=== PATIENT | female | born 1940 | race Caucasian/White ===

== ENCOUNTER → 2017-01-19 | Outpatient (CLI) | payer MEDICARE ==
[~2017-01-19] MED LIST: APIX5TAB2 PO; CLARATIN; DILT300C PO; HYDR-3454 PO; KRIL500C PO; LOSA50TA6 PO; METH-336 PO; OMEP20TA2 PO; VIT100TA2 PO
[2017-01-19 08:03] LABS: MEAN PLATELET VOLUME 9.2 FL (7.4-10.4); RED BLOOD COUNT 4.67 10^6/uL (4.35-5.85); RED CELL DISTRIBUTION WIDTH 13.4 % (10.0-14.5); WHITE BLOOD COUNT 7.1 10^3/uL (4.3-11.0)
[2017-01-19 08:29] LABS: ALANINE AMINOTRANSFERASE 16 U/L (0-55); ALBUMIN 3.9 GM/DL (3.2-4.5); ANION GAP 10 MMOL/L (5-14); ASPARTATE AMINO TRANSFERASE 14 U/L (5-34); BILIRUBIN,TOTAL 0.4 MG/DL (0.1-1.0); BLOOD UREA NITROGEN 15 MG/DL (7-18); BUN/CREATININE RATIO 21; CALCIUM 9.3 MG/DL (8.5-10.1); CARBON DIOXIDE 24 MMOL/L (21-32); CHLORIDE 106 MMOL/L (98-107); CHOLESTEROL 205 MG/DL (< 200); CREATININE SERUM 0.73 MG/DL (0.60-1.30); DIRECT LDL 143 MG/DL (1-129); GFR ESTIMATED > 60; GLUCOSE 93 MG/DL (70-105); SODIUM 140 MMOL/L (135-145); TRIGLYCERIDES 144 MG/DL (<150); VLDL CHOLESTEROL 29 MG/DL (5-40)
[2017-01-19 08:49] LABS: THYROID STIMULATING HORMONE 0.16 UIU/ML (0.35-4.94)
== END ==
LOC: LAB 07:34
PROVIDERS: ATTEND Family Medicine
DX: R53.82 Chronic fatigue, unspecified (principal); R63.5 Abnormal weight gain; Z72.0 Tobacco use
CPT/HCPCS: 36415; 80053; 80061; 84443; 85027

== ENCOUNTER → 2017-01-25 | Outpatient (CLI) | payer MEDICARE | LOC: LAB 10:47 | PROVIDERS: ATTEND Family Medicine | DX: R25.1 Tremor, unspecified (principal); F41.9 Anxiety disorder, unspecified | CPT/HCPCS: 36415; 84436; 84439; 84480 ==

== ENCOUNTER 2017-01-31 09:21 | Emergency (ER) | payer MEDICARE ==
[~2017-01-31] VITALS: Ht 154.9 cm; Wt 76.2 kg
[2017-01-31 10:50] LABS: BASOPHILS % (AUTO) 0 % (0-10); EOSINOPHILS # (AUTO) 0.1 10^3/uL (0.0-0.3); EOSINOPHILS % (AUTO) 1 % (0-10); LYMPHOCYTES # (AUTO) 2.2 X 10^3 (1.0-4.0); LYMPHOCYTES % (AUTO) 21 % (12-44); MEAN CORPUSCULAR HEMOGLOBIN 31 PG (25-34); MEAN CORPUSCULAR HGB CONC 33 G/DL (32-36); MEAN CORPUSCULAR VOLUME 93 FL (80-99); MEAN PLATELET VOLUME 9.9 FL (7.4-10.4); MONOCYTES # (AUTO) 0.8 X 10^3 (0.0-1.0); MONOCYTES % (AUTO) 7 % (0-12); NEUTROPHILS # (AUTO) 7.4 X 10^3 (1.8-7.8); NEUTROPHILS % (AUTO) 71 % (42-75); PLATELET COUNT 263 10^3/uL (130-400); RED BLOOD COUNT 4.62 10^6/uL (4.35-5.85); RED CELL DISTRIBUTION WIDTH 13.2 % (10.0-14.5); WHITE BLOOD COUNT 10.5 10^3/uL (4.3-11.0)
[2017-01-31 11:00] LABS: ANION GAP 11 MMOL/L (5-14); BLOOD UREA NITROGEN 13 MG/DL (7-18); BUN/CREATININE RATIO 18; CARBON DIOXIDE 21 MMOL/L (21-32); CHLORIDE 108 MMOL/L (98-107); CREATININE SERUM 0.74 MG/DL (0.60-1.30); GFR ESTIMATED > 60; GLUCOSE 144 MG/DL (70-105); MAGNESIUM 2.1 MG/DL (1.8-2.4); POTASSIUM 3.4 MMOL/L (3.6-5.0); SODIUM 140 MMOL/L (135-145)
--- NOTE | 2017-01-31 11:04 | Diagnostic Imaging Report ---
Clinical indication: Patient complains of shakiness in approximately one month with onset of shortness of air. Exam: Chest x-ray PA and lateral views. Comparisons: Chest x-ray dated 07/31/2014. Findings: Lungs/pleura: There is interval development of minimal discoid atelectasis in the periphery of the left midlung field. Otherwise, lungs are are clear. There is no pneumothorax. There is no pleural effusion. Mediastinum: Unremarkable. Pulmonary vasculature: Unremarkable. Heart: Unremarkable. Bones/extrathoracic soft tissue: There are degenerative spurs seen throughout the spine. Impression: Interval minimal atelectasis in the periphery of the left midlung field. Otherwise, there is no radiographic evidence of acute cardiopulmonary process. Dictated by: Dictated on workstation # [id number]
[2017-01-31 11:07] LABS: TROPONIN I < 0.30 NG/ML (<0.30)
[2017-01-31 11:13] LABS: BILIRUBIN,URINE NEGATIVE (NEGATIVE); KETONES,URINE NEGATIVE (NEGATIVE); LEUKOCYTE ESTERASE ,URINE NEGATIVE (NEGATIVE); NITRITE,URINE NEGATIVE (NEGATIVE); PH,URINE 7 (5-9); PROTEIN,URINE NEGATIVE (NEGATIVE); UROBILINOGEN,URINE NORMAL (NORMAL)
--- NOTE | 2017-01-31 11:57 | ED General ---
General Chief Complaint: Respiratory Problems Stated Complaint: SHAKINESS/SOB Nursing Triage Note: TO ED REPORTS HAS HX OF A FIB FELT LAST NIGHT THAT HER HEART WAS RACING TOOK PULSE AND IT HR WAS 85. ALSO REPORTS SHE HAS BEEN SHAKEY FOR A MONTH AND HAS SEEN HER DR FOR. MONITOR SR ON ADMIT AND IN NO DISTRESS. Nursing Sepsis Screen: No Definite Risk Source of Information: Patient Exam Limitations: No Limitations History of Present Illness Time Seen by Provider: 10:35 Initial Comments This pleasant 76-year-old woman presents to emergency room with complaints of sensation of palpitations last night. This morning she felt very shaky after waking up. She has been having episodes similar to this for the past month. She has been seen by Dr. Wilkerson for this previously and the labs have been obtained. Those were reviewed in her chart. She reports feeling significant fatigue recently and needing to take naps. This morning she was shaky and short of air but those symptoms seem to have resolved now. She denies any fever , nausea, vomiting, or diarrhea. She has had some slight dizziness. She occasionally takes Lasix for swelling and she took a dose this morning. She does have paroxysmal atrial fibrillation. Allergies and Home Medications Allergies Coded Allergies: amoxicillin (Unverified Allergy, Unknown, RASH, 07/31/14) Home Medications Apixaban 5 Mg Tablet, 5 MG PO BID, (Reported) Diltiazem Hcl 300 Mg Cap, 300 MG PO DAILY, (Reported) Hydrocodone Bit/Acetaminophen 1 Each Tablet, 1-2 EACH PO Q4H PRN for PAIN, #30 Prescribed by: ORIANA HINDS on 08/02/14 1244 Krill Oil 500 Mg Capsule, 500 MG PO DAILY, (Reported) Losartan Potassium 50 Mg Tablet, 50 MG PO DAILY, (Reported) Methylcellulose 500 Mg Tablet, 500 MG PO HS, (Reported) Omeprazole 20 Mg Tablet.dr, 20 MG PO DAILY, (Reported) Potassium Chloride 10 Meq Tablet.er, 10 MEQ PO UD, #20 Take one tablet with each dose of Lasix Prescribed by: JEN CAVAZOS on 01/31/17 1212 Vit B Complex 100 Cmb #2/Herbs 100 Mg Tablet, 100 MG PO DAILY, (Reported) Constitutional: see HPI EENTM: no symptoms reported Respiratory: see HPI Cardiovascular: see HPI Gastrointestinal: no symptoms reported Genitourinary: no symptoms reported : No Musculoskeletal: no symptoms reported Skin: no symptoms reported Psychiatric/Neurological: See HPI Hematologic/Lymphatic: No Symptoms Reported Past Hfxkkli-Arpkam-Wgnvqw Hx Patient Social History Recent Foreign Travel: No Contact w/Someone Who Travel: No Recent Infectious Disease Expo: No Immunizations Up To Date Date of Influenza Vaccine: Mar 05, 2014 Surgeries History of Surgeries: Yes (THROAT,THYROID SURG) Surgeries: Hysterectomy Respiratory History of Respiratory Disorde: No Cardiovascular History of Cardiac Disorders: Yes (A-FIB) Cardiac Disorders: Atrial Fibrillation (Paroxysmal), Hypertension Neurological History of Neurological Disord: No Reproductive System Sexually Transmitted Disease: No HIV/AIDS: No Female Reproductive Disorders: Denies Gastrointestinal History of Gastrointestinal Di: Yes (DIVERTICULITIS, FREQ LOOSE STOOLS) Gastrointestinal Disorders: Diverticulosis Musculoskeletal History of Musculoskeletal Dis: No Endocrine History of Endocrine Disorders: No Cancer History of Cancer: No Psychosocial History of Psychiatric Problem: No Integumentary History of Skin or Integumenta: Yes Skin/Integumentary Disorders: Psoriasis Blood Transfusions History of Blood Disorders: No Physical Exam Vital Signs Vital Sign - Last 12Hours 01/31/17 09:21 Temp 98.0 Pulse 72 Resp 18 B/P (MAP) 162/89 Pulse Ox 96 O2 Delivery Room Air Capillary Refill : Less Than 3 Seconds General Appearance: No Apparent Distress, WD/WN HEENT: PERRL/EOMI, Normal ENT Inspection Neck: Normal Inspection Respiratory: Lungs Clear, Normal Breath Sounds, No Accessory Muscle Use, No Respiratory Distress Cardiovascular: Regular Rate, Rhythm, No Edema, No Murmur, Normal Peripheral Pulses Gastrointestinal: Normal Bowel Sounds, Non Tender, Soft Extremity: Non Tender, Pedal Edema (Mild edema, equal bilaterally) Neurologic/Psychiatric: Alert, Oriented x3, No Motor/Sensory Deficits, Normal 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, 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 Skin: Normal Color, Warm/Dry Progress/Results/Core Measures Results/Orders Lab Results Laboratory Tests Test 01/31/17 09:37 01/31/17 11:01 Range/Units White Blood Count 10.5 4.3-11.0 10^3/uL Red Blood Count 4.62 4.35-5.85 10^6/uL Hemoglobin 14.2 11.5-16.0 G/DL Hematocrit 43 35-52 % Mean Corpuscular Volume 93 80-99 FL Mean Corpuscular Hemoglobin 31 25-34 PG Mean Corpuscular Hemoglobin Concent 33 32-36 G/DL Red Cell Distribution Width 13.2 10.0-14.5 % Platelet Count 263 130-400 10^3/uL Mean Platelet Volume 9.9 7.4-10.4 FL Neutrophils (%) (Auto) 71 42-75 % Lymphocytes (%) (Auto) 21 12-44 % Monocytes (%) (Auto) 7 0-12 % Eosinophils (%) (Auto) 1 0-10 % Basophils (%) (Auto) 0 0-10 % Neutrophils # (Auto) 7.4 1.8-7.8 X 10^3 Lymphocytes # (Auto) 2.2 1.0-4.0 X 10^3 Monocytes # (Auto) 0.8 0.0-1.0 X 10^3 Eosinophils # (Auto) 0.1 0.0-0.3 10^3/uL Basophils # (Auto) 0.0 0.0-0.1 10^3/uL Sodium Level 140 135-145 MMOL/L Potassium Level 3.4 L 3.6-5.0 MMOL/L Chloride Level 108 H 98-107 MMOL/L Carbon Dioxide Level 21 21-32 MMOL/L Anion Gap 11 5-14 MMOL/L Blood Urea Nitrogen 13 7-18 MG/DL Creatinine 0.74 0.60-1.30 MG/DL Estimat Glomerular Filtration Rate > 60 BUN/Creatinine Ratio 18 Glucose Level 144 H 70-105 MG/DL Calcium Level 9.0 8.5-10.1 MG/DL Magnesium Level 2.1 1.8-2.4 MG/DL Troponin I < 0.30 <0.30 NG/ML C-Reactive Protein High Sensitivity 0.09 0.00-0.50 MG/DL B-Type Natriuretic Peptide 63.8 <100.0 PG/ML Urine Color YELLOW Urine Clarity CLEAR Urine pH 7 5-9 Urine Specific [place] 1.005 L 1.016-1.022 Urine Protein NEGATIVE NEGATIVE Urine Glucose (UA) NEGATIVE NEGATIVE Urine Ketones NEGATIVE NEGATIVE Urine Nitrite NEGATIVE NEGATIVE Urine Bilirubin NEGATIVE NEGATIVE Urine Urobilinogen NORMAL NORMAL MG/DL Urine Leukocyte Esterase NEGATIVE NEGATIVE Urine RBC (Auto) 2+ H NEGATIVE Urine RBC NONE /HPF Urine WBC NONE /HPF Urine Crystals NONE /LPF Urine Bacteria TRACE /HPF Urine Casts NONE /LPF Urine Mucus NEGATIVE /LPF Urine Culture Indicated NO My Orders Orders - JEN SILVA MD Basic Metabolic Panel (01/31/17 10:44) BNP (01/31/17 10:44) Cbc With Automated Diff (01/31/17 10:44) Magnesium (01/31/17 10:44) Troponin I (01/31/17 10:44) Ua Culture If Indicated (01/31/17 10:44) Saline Lock/Iv-Start (01/31/17 10:44) Ekg Tracing (01/31/17 10:44) Chest Pa/Lat (2 View) (01/31/17 10:44) Hs C Reactive Protein (01/31/17 10:48) Vital Signs/I&O Vital Sign - Last 12Hours 01/31/17 01/31/17 09:21 12:14 Temp 98.0 Pulse 72 62 Resp 18 18 B/P (MAP) 162/89 Pulse Ox 96 98 O2 Delivery Room Air Room Air Blood Pressure Mean: 113 ECG Initial ECG Impression Date: Jan 31, 2017 Initial ECG Impression Time: 09:26 Initial ECG Rate: 71 Initial ECG Rhythm: Normal Sinus Initial ECG Intervals: Normal Initial ECG Impression: Normal Comment Normal sinus rhythm with no ST elevation or depression. No normal intervals or axis deviation. Diagnostic Imaging Diagonstic Imaging: Xray Plain Films/CT/US/NM/MRI: chest Comments Chest x-ray viewed by me and report reviewed. See report below: NAME: SANDRA VÁZQUEZ [facility] REC#: [id number] PT STATUS: REG ER : 1940 PHYSICIAN: JEN SILVA MD ADMIT DATE: 01/31/17/ER Draft Date of Exam:01/31/17 CHEST PA/LAT (2 VIEW) Clinical indication: Patient complains of shakiness in approximately one month with onset of shortness of air. Exam: Chest x-ray PA and lateral views. Comparisons: Chest x-ray dated 07/31/2014. Findings: Lungs/pleura: There is interval development of minimal discoid atelectasis in the periphery of the left midlung field. Otherwise, lungs are are clear. There is no pneumothorax. There is no pleural effusion. Mediastinum: Unremarkable. Pulmonary vasculature: Unremarkable. Heart: Unremarkable. Bones/extrathoracic soft tissue: There are degenerative spurs seen throughout the spine. Impression: Interval minimal atelectasis in the periphery of the left midlung field. Otherwise, there is no radiographic evidence of acute cardiopulmonary process. Dictated on workstation # [id number] Dict: 01/31/17 1059 Trans: 01/31/17 1104 STEVEN [id number] Interpreted by: AUGIE ROMAN MD Departure Impression Impression: Primary Impression: Palpitations Additional Impressions: Shakiness Paroxysmal atrial fibrillation Disposition: HOME, SELF-CARE Condition: Improved Departure-Patient Inst. Decision time for Depature: 12:00 Referrals: KATIE WILKERSON MD (PCP/Family) Primary Care Physician Patient Instructions: Atrial Fibrillation Add. Discharge Instructions: Continue with all of your medications as previously prescribed. Fill your potassium prescription and take one today. Also take a potassium dose with every dose of Lasix to take. Follow-up with Dr. Luo and your primary care provider. Inquire about obtaining a consultant luxury and [employer]. vice president [employer] (ex ) to evaluate your heart rhythm when you are having episodes of shakiness and palpitations. Return to the ER if symptoms worsen. All discharge instructions reviewed with patient and/or family. Voiced understanding. Scripts Potassium Chloride (Potassium Chloride) 10 Meq Tablet.er 10 MEQ PO UD, #20 TAB Take one tablet with each dose of Lasix Prov: JEN SILVA MD 01/31/17 Copy Copies To 1: KATIE WILKERSON MD Copies To 2: SANTY LUO MD [facility] JEN SILVA MD Jan 31, 2017 11:57
[2017-01-31] MEDS ORDERED: POTA10TA10 PO (12:12)
[2017-01-31 12:14] VITALS: BP 130/77
== END 2017-01-31 12:17 | disposition home or self-care (01) ==
LOC: EDUNIT# 09:21 → ER 09:22
DX: R00.2 Palpitations (principal); R25.1 Tremor, unspecified; I48.0 Paroxysmal atrial fibrillation; I10 Essential (primary) hypertension; Z87.39 Personal history of other diseases of the musculoskeletal system and connective tissue; Z87.19 Personal history of other diseases of the digestive system; Z90.710 Acquired absence of both cervix and uterus
CPT/HCPCS: 36415; 71020; 80048; 81000; 83735; 83880; 84484; 85025; 86141; 93005

== ENCOUNTER → 2017-02-03 | Outpatient (CLI) | payer MEDICARE ==
[~2017-02-03] MED LIST changes: +POTA10TA10 PO
[2017-02-03 11:41] LABS: ANION GAP 11 MMOL/L (5-14); BLOOD UREA NITROGEN 13 MG/DL (7-18); BUN/CREATININE RATIO 17; CALCIUM 9.4 MG/DL (8.5-10.1); CARBON DIOXIDE 23 MMOL/L (21-32); CHLORIDE 106 MMOL/L (98-107); CREATININE SERUM 0.75 MG/DL (0.60-1.30); GFR ESTIMATED > 60; GLUCOSE 88 MG/DL (70-105); MAGNESIUM 2.3 MG/DL (1.8-2.4); POTASSIUM 4.1 MMOL/L (3.6-5.0); SODIUM 140 MMOL/L (135-145)
== END ==
LOC: LAB 11:06
PROVIDERS: ATTEND Internal Medicine Cardiovascular Disease
DX: R00.2 Palpitations (principal); I48.0 Paroxysmal atrial fibrillation; I25.10 Atherosclerotic heart disease of native coronary artery without angina pectoris; I65.23 Occlusion and stenosis of bilateral carotid arteries; I49.5 Sick sinus syndrome; Z72.0 Tobacco use
CPT/HCPCS: 36415; 80048; 83735

== ENCOUNTER → 2017-02-19 | Outpatient (CLI) | payer MEDICARE | LOC: CARD 09:34 | PROVIDERS: ATTEND Internal Medicine Cardiovascular Disease | DX: I48.0 Paroxysmal atrial fibrillation (principal); I25.10 Atherosclerotic heart disease of native coronary artery without angina pectoris; I65.23 Occlusion and stenosis of bilateral carotid arteries; I49.5 Sick sinus syndrome; R00.2 Palpitations; Z72.0 Tobacco use | CPT/HCPCS: 93306 ==

== ENCOUNTER → 2017-03-18 | Outpatient (CLI) | payer MEDICARE ==
--- NOTE | 2017-03-19 09:57 | Diagnostic Imaging Report ---
EXAMINATION: Bilateral screening mammogram 2D views with tomosynthesis. The current study was also evaluated with a Computer Aided Detection (CAD) system. INDICATION: Screening. PERSONAL HISTORY: No current complaints stated on the questionnaire. COMPARISON: 03/10/2016. FINDINGS: The breasts are composed of scattered fibroglandular densities. There are occasional benign-appearing calcifications seen. No mass, architectural distortion, or suspicious cluster of calcifications. Allowing for technique and positional differences, no suspicious change is seen. IMPRESSION: No significant change. ACR BI-RADS Category 2: Benign findings. Result letter will be mailed to the patient. Note: At least 10% of breast cancer is not imaged by mammography. Dictated by: Dictated on workstation # [id number]
== END ==
LOC: RAD 10:59
DX: Z12.31 Encounter for screening mammogram for malignant neoplasm of breast (principal)
CPT/HCPCS: 77067

== ENCOUNTER → 2018-03-01 | Outpatient (CLI) | payer MEDICARE ==
[2018-03-01 08:06] LABS: ALANINE AMINOTRANSFERASE 16 U/L (0-55); ALBUMIN 3.8 GM/DL (3.2-4.5); ALKALINE PHOSPHATASE 47 U/L (40-136); BILIRUBIN,TOTAL 0.5 MG/DL (0.1-1.0); BUN/CREATININE RATIO 14; CALCIUM 9.1 MG/DL (8.5-10.1); CARBON DIOXIDE 25 MMOL/L (21-32); CHLORIDE 107 MMOL/L (98-107); CHOLESTEROL 187 MG/DL (< 200); CREATININE SERUM 0.72 MG/DL (0.60-1.30); GFR ESTIMATED > 60; GLUCOSE 98 MG/DL (70-105); HDL CHOLESTEROL 41 MG/DL (40-60); POTASSIUM 3.8 MMOL/L (3.6-5.0); SODIUM 140 MMOL/L (135-145); TOTAL PROTEIN 7.3 GM/DL (6.4-8.2); TRIGLYCERIDES 195 MG/DL (<150); VLDL CHOLESTEROL 39 MG/DL (5-40)
== END ==
LOC: LAB 07:34
PROVIDERS: ATTEND Nurse Practitioner Family
DX: I25.10 Atherosclerotic heart disease of native coronary artery without angina pectoris (principal); I77.89 Other specified disorders of arteries and arterioles; I10 Essential (primary) hypertension; I48.0 Paroxysmal atrial fibrillation; I49.5 Sick sinus syndrome; Z72.0 Tobacco use
CPT/HCPCS: 36415; 80053; 80061; 84443

== ENCOUNTER → 2018-03-08 | Outpatient (CLI) | payer MEDICARE ==
[2018-03-08 15:13] LABS: HEMOGLOBIN 14.1 G/DL (11.5-16.0); MEAN PLATELET VOLUME 9.3 FL (7.4-10.4); RED BLOOD COUNT 4.51 10^6/uL (4.35-5.85); RED CELL DISTRIBUTION WIDTH 13.8 % (10.0-14.5); WHITE BLOOD COUNT 8.6 10^3/uL (4.3-11.0)
[2018-03-08 15:56] LABS: FREE T4 (FREE THYROXINE) 1.02 NG/DL (0.70-1.48)
== END ==
LOC: LAB 14:52
PROVIDERS: ATTEND Family Medicine
DX: R73.03 Prediabetes (principal); R79.89 Other specified abnormal findings of blood chemistry
CPT/HCPCS: 36415; 84436; 84439; 84443; 84481; 85027

== ENCOUNTER → 2018-03-21 | Outpatient (CLI) | payer MEDICARE ==
--- NOTE | 2018-03-21 13:21 | Diagnostic Imaging Report ---
INDICATION: Routine screening. COMPARISON: 03/18/2017 and 03/10/2016. TECHNIQUE: 2D and 3D bilateral screening mammography was performed with CAD. FINDINGS: Scattered fibroglandular densities are identified bilaterally. The parenchymal pattern is stable. No dominant mass or malignant-appearing microcalcifications are seen. The axillae are unremarkable. IMPRESSION: No mammographic features suspicious for malignancy are identified. ACR BI-RADS Category 1: Negative. Result letter will be mailed to the patient. Note: At least 10% of breast cancer is not imaged by mammography. Dictated by: Dictated on workstation # [id number]
== END ==
LOC: RAD 09:20
PROVIDERS: ATTEND Family Medicine
DX: Z12.31 Encounter for screening mammogram for malignant neoplasm of breast (principal)
CPT/HCPCS: 77067

== ENCOUNTER → 2018-04-05 | Outpatient (CLI) | payer MEDICARE ==
--- NOTE | 2018-04-05 12:56 | Diagnostic Imaging Report ---
INDICATION: Multinodular goiter TECHNIQUE: Grayscale sonographic images of the thyroid gland. CORRELATION STUDY: 12/24/2015 FINDINGS: RIGHT LOBE: Enlarged at 5.5 x 2.6 x 2.0 cm. A predominantly hypoechoic but peripherally solid nodule within the right lobe currently measures 2.4 x 1.5 x 1.1 cm, previously 2.3 x 1.9 x 0.9 cm, relatively stable. Initial predominantly cystic but peripherally solid nodule inferiorly currently measures 18 x 14 x 13 mm, previously 14 x 13 x 13 mm stable to approximately minimally increased in size. LEFT LOBE: Enlarged at 5.5 x 2.9 x 2.3 cm. There is a predominantly solid but also cystic containing mass occupying a large portion of the left lobe currently measuring 2.3 x 3.5 x 2.5 cm, previously 2.1 x 3.5 x 2.2 cm, stable. Positive blood flow within the solid component. A few microcalcifications suspect. Within the isthmus is a predominantly solid, slightly hypoechoic nodule. It is not definitively present on prior study and currently measures a 16 x 9 x 7 mm. Minimal vascular flow. IMPRESSION: Thyroid gland containing multiple masses. The dominant masses overall appear to be generally stable in size and appearance. There is however suggested solid nodule along the right aspect of the isthmus. It is not definitely demonstrated on prior study and may be new. Therefore, repeat imaging in approximately 4-6 months recommended for reassessment. (Normal gland size: 4-5 x 2 x 2 cm) Dictated by: Dictated on workstation # [id number]
== END ==
LOC: RAD 08:42
PROVIDERS: ATTEND Family Medicine
DX: E04.2 Nontoxic multinodular goiter (principal)
CPT/HCPCS: 76536

== ENCOUNTER → 2018-08-18 | Outpatient (CLI) | payer MEDICARE ==
--- NOTE | 2018-08-18 12:09 | Diagnostic Imaging Report ---
INDICATION: Multinodular goiter. COMPARISON: Correlation is made with prior exam from 04/05/2018. FINDINGS: Right lobe of the thyroid measures 5.5 x 2.3 x 2.1 cm and the left lobe measures 6.1 x 3.2 x 2.3 cm. Isthmus is 3 mm in thickness. Bilateral mixed solid and cystic masses are again noted. Mass involving the mid and upper left lobe measures approximately 2.0 x 3.5 x 2.2 cm. This compares with 2.3 x 3.5 x 2.5 cm on prior. There may be a new nodule in the lower pole left lobe measuring approximately 1.1 x 1.3 cm on today's study. A right lobe lower pole mixed cystic and solid nodule measures approximately 1.5 x 1.8 x 1.3 cm. Mid right lobe nodule measures 1.8 x 2.6 x 1.3 cm. This compares with 1.5 x 2.4 x 1.1 cm on prior. No other significant abnormality seen. IMPRESSION: Bilateral thyroid masses, very similar in size when compared with the prior examination from 04/05/2018. Dictated by: Dictated on workstation # [id number]
== END ==
LOC: RAD 11:16
PROVIDERS: ATTEND Family Medicine
DX: E04.2 Nontoxic multinodular goiter (principal)
CPT/HCPCS: 76536

== ENCOUNTER → 2018-09-06 | Outpatient (CLI) | payer MEDICARE ==
--- NOTE | 2018-09-07 17:01 | Diagnostic Imaging Report ---
INDICATION: Thyroid mass. EXAMINATION: Thyroid uptake and scan. 199 ?Ci of I-123 was given orally. Uptake was calculated at 4 hours and 24 hours. FINDINGS: The scan shows slightly larger left lobe of the thyroid than the right. 4 hour uptake is 15% which is upper limits of normal. The 24 hour uptake is 35% which is increased from the normal range of 10-30%. IMPRESSION: Increased thyroid uptake at 24 hours consistent with mild hyperthyroidism. Dictated by: Dictated on workstation # [id number]
== END ==
LOC: CARD 10:43
PROVIDERS: ATTEND Surgery
DX: E04.9 Nontoxic goiter, unspecified (principal)
CPT/HCPCS: 78014

== ENCOUNTER → 2018-11-30 | Outpatient (CLI) | payer MEDICARE ==
--- NOTE | 2018-11-30 14:59 | Diagnostic Imaging Report ---
PROCEDURE: US Thyroid. TECHNIQUE: Multiple real-time grayscale images were obtained of the thyroid in various projections. INDICATION: There are nodules Findings: Comparison is to 06/19/2018. The right lobe of the thyroid measures 5.2 x 2.4 x 2.0 cm. The left lobe of the thyroid measures 5.4 x 2.6 x 2.4 cm. There are multiple bilateral thyroid nodules which overall appear unchanged. The most suspicious thyroid nodule on the right measures 2.3 x 1.8 x 1.0 cm, This is cystic and solid, hypoechoic with circumscribed margins. Previously it measured 2.6 x 1.8 x 1.3 cm. This is characterized as TI-RADS 3 and continued followup is recommended. The most suspicious nodule in the left is mixed solid and cystic with circumscribed margins and isoechoic. This measures 2.1 x 2.4 x 2.4 cm, decreased from prior exam and previously measured 2.0 x 3.5 x 2.2 cm. This is characterized as TI-RADS 2 and no further follow-up is needed. Impression: 1. Stable thyroid nodules with a nodule on the right characterized as TI-RADS 3 and for which continued annual followup is recommended. Dictated by: Dictated on workstation # [id number]
== END ==
LOC: RAD 13:33
PROVIDERS: ATTEND Nurse Practitioner Family
DX: E04.2 Nontoxic multinodular goiter (principal)
CPT/HCPCS: 76536

== ENCOUNTER → 2019-03-21 | Outpatient (CLI) | payer MEDICARE ==
[~2019-03-21] VITALS: Ht 157 cm; Wt 80.0 kg
[~2019-03-21] MED LIST changes: +CATHETER FLUSH 10 ML SYR IV PRN; +REGADENOSON 0.4 MG/5 ML SYR (LEXISCAN) IV ONE
[2019-03-21 09:03] VITALS: BP 146/84
[2019-03-21 09:14] VITALS: BP 149/84
--- NOTE | 2019-03-21 16:51 | STRESS TEST ---
DATE OF SERVICE: 03/21/2019 RESTING AND POST REGADENOSON TECHNETIUM-99M TETROFOSMIN SPECT CT IMAGING ORDERING PHYSICIAN: Ashley Baez APRN PRIMARY PHYSICIAN: Dr. Wilkerson. OTHER PHYSICIAN: Dr. Hilario. CLINICAL DIAGNOSES: Coronary artery disease. Baseline images were carried out after injection of 10.31 mCi of technetium-99m Tetrofosmin. This was followed by 0.4 mg regadenoson and 28.2 mCi of technetium-99m Tetrofosmin. The patient noted some shortness of breath following regadenoson infusion, which resolved in a few minutes. Review of images at rest and following regadenoson infusion do not indicate any significant perfusion defects consistent with significant myocardial ischemia or infarction. Gated images show normal global left ventricular systolic function with normal regional wall motion. Left ventricular ejection fraction is calculated to be 71%. Left ventricular end diastolic volume is 34 mL. TID is absent (0.93). CONCLUSIONS: 1. No evidence of any significant myocardial ischemia or infarction on this study. 2. Normal regional wall motion. 3. Normal global left ventricular systolic function with a calculated ejection fraction of 71%. Job ID: [id number] DocumentID: [id number] Dictated Date: 03/21/2019 13:31:47 Neuropsychology Director Date: 03/21/2019 16:50:14 Dictated By: SANTY HILARIO MD, MA, FACP, FACC,
== END ==
LOC: CARD 06:56
PROVIDERS: ATTEND Nurse Practitioner Family
DX: I25.10 Atherosclerotic heart disease of native coronary artery without angina pectoris (principal); I77.89 Other specified disorders of arteries and arterioles; I10 Essential (primary) hypertension; I48.0 Paroxysmal atrial fibrillation; R53.83 Other fatigue
CPT/HCPCS: 78452; 93017; 93306

== ENCOUNTER → 2019-03-24 | Outpatient (CLI) | payer MEDICARE ==
[~2019-03-24] MED LIST changes: -CATHETER FLUSH 10 ML SYR IV PRN; -REGADENOSON 0.4 MG/5 ML SYR (LEXISCAN) IV ONE
--- NOTE | 2019-03-24 13:02 | Diagnostic Imaging Report ---
INDICATION: Routine screening. COMPARISON: Comparison is made with prior mammograms from 03/21/2018 and 03/18/2017. TECHNIQUE: 2-D and 3-D bilateral screening mammography was performed. The current study was also evaluated with a Computer Aided Detection (CAD) system. 3-D tomosynthesis was also performed and reviewed. FINDINGS: Scattered fibroglandular densities are identified bilaterally. A circumscribed nodule in the outer left breast anterior depth appears to be stable. No spiculated mass or malignant-appearing microcalcifications are seen. The axillae are unremarkable. IMPRESSION: No mammographic features suspicious for malignancy are identified. ACR BI-RADS Category 2: Benign findings. Result letter will be mailed to the patient. Note: At least 10% of breast cancer is not imaged by mammography. Dictated by: Dictated on workstation # [id number]
== END ==
LOC: RAD 09:46
PROVIDERS: ATTEND Family Medicine
DX: Z12.31 Encounter for screening mammogram for malignant neoplasm of breast (principal)
CPT/HCPCS: 77067

== ENCOUNTER → 2019-10-05 | Outpatient (CLI) | payer MEDICARE ==
--- NOTE | 2019-10-05 11:53 | Diagnostic Imaging Report ---
PROCEDURE: US Thyroid. TECHNIQUE: Multiple real-time grayscale images were obtained of the thyroid in various projections. INDICATION: Multinodular goiter The previous thyroid ultrasound exam performed on 11/30/2018 noted that the thyroid gland was enlarged and that there were multiple nodules in both lobes. These nodules seem similar to the prior exam of 06/19/2018. On this exam the thyroid gland remains enlarged with the right lobe measuring 5.1 x 1.9 x 2.2 cm, left lobe estimated 5.0 x 2.3 x 2.8 cm (normal gland size 5 x 2 x 2 cm or less). The thyroid gland is similar in size to the prior study. The prior exam did note a 2.3 x 1.0 x 1.8 cm complex nodule in the right lobe of the thyroid. On this study that nodule now measures 2.2 x 0.8 x 1.6 cm. The largest nodule in the left lobe seen previously measured 2.1 x 2.4 x 2.4 cm. That finding now measures 2.7 x 2.1 x 2.2 cm. The other nodules do not appear to have changed significantly. IMPRESSION: 1. The thyroid gland remains enlarged and the nodules in both lobes seen previously are again evident, do not appear to have changed significantly. These findings may well be secondary to a multinodular goiter. 2. If a tissue diagnosis of the largest nodule in each lobe is desired, then ultrasound-guided biopsy could be performed. Otherwise a short-term (6 month) followup thyroid ultrasound exam should be obtained. Dictated by: Dictated on workstation # [id number]
--- NOTE | 2019-10-06 14:58 | Diagnostic Imaging Report ---
RADIOPHARMACEUTICALS: I-123 200 mCi PO COMPARISON: 10/05/2019, ultrasound INDICATION: Multinodular goiter TECHNIQUE: Planar view of the thyroid bed. FINDINGS: Homogenous activity is noted throughout the thyroid without nodularity. The uptake is 19% at 6hrs, which extrapolates to approximately 49% at 24hrs. IMPRESSION: 1. Diffusely increased uptake throughout the thyroid gland without discrete nodule, which is felt to relate to underlying Graves' disease. Dictated by: Dictated on workstation # [id number]
== END ==
LOC: RAD 10:34
PROVIDERS: ATTEND Internal Medicine Endocrinology, Diabetes & Metabolism
DX: E04.2 Nontoxic multinodular goiter (principal)
CPT/HCPCS: 76536; 78014

== ENCOUNTER 2019-11-01 13:14 | Outpatient (RCR) | payer MEDICARE | END 2020-01-30 | disposition home or self-care (01) | LOC: ONC 13:14 | PROVIDERS: ATTEND Radiology Radiation Oncology | DX: E05.00 Thyrotoxicosis with diffuse goiter without thyrotoxic crisis or storm (principal); I48.91 Unspecified atrial fibrillation; E78.00 Pure hypercholesterolemia, unspecified; I10 Essential (primary) hypertension; F41.9 Anxiety disorder, unspecified; F17.210 Nicotine dependence, cigarettes, uncomplicated; Z90.710 Acquired absence of both cervix and uterus; Z98.890 Other specified postprocedural states | CPT/HCPCS: 99204 ==

== ENCOUNTER → 2019-11-29 | Outpatient (CLI) | payer MEDICARE | LOC: CARD 09:24 | PROVIDERS: ATTEND Radiology Radiation Oncology | DX: E05.00 Thyrotoxicosis with diffuse goiter without thyrotoxic crisis or storm (principal) | CPT/HCPCS: 79005; A9517 ×2 ==

== ENCOUNTER → 2020-02-06 | Outpatient (CLI) | payer MEDICARE ==
--- NOTE | 2020-02-06 09:30 | Diagnostic Imaging Report ---
INDICATION: Postmenopausal screening. COMPARISON: None FINDINGS: AP Spine L1-L4: [BMD (g/cm2): 0.917] [T-Score: -2.4] [Z-Score: -0.8] [BMD Previous: na] [BMD % Change: na] LT Hip Neck: [BMD (g/cm2): 0.665] [T-Score: -2.7] [Z-Score: -0.7] LT Hip Total: [BMD (g/cm2):0.709] [T-Score:-2.4] [Z-Score: -0.6] [BMD Previous: na] [BMD % Change: na] RT Hip Neck: [BMD (g/cm2):0.665] [T-Score:-2.7] [Z-Score:-0.7] RT Hip Total: [BMD (g/cm2):-0.713] [T-score:-2.3] [Z-Score:-0.6] [BMD Previous:na] [BMD % Change:na] *Indicates significant change from prior examination based on 95% confidence level. World Health Organization criteria for BMD interpretation classify patients as Normal (T-score at or above -1.0), Osteopenic (T-score between -1.0 and -2.5) or Osteoporotic (T-score at or below -2.5). LIMITATIONS AND MODIFICATION: None. FRACTURE RISK (FRAX SCORE): The ten year probability of (%): Major Osteoporotic Fracture: [22.5] Hip Fracture: [11.5] IMPRESSION: 1. Osteopenia (Low bone mass). 2. Baseline examination. 3. See below National Osteoporosis Foundation guidelines on when to potentially initiate pharmacologic therapy. Based on the National Osteoporosis Foundation Guidelines, pharmacologic treatment should be initiated in any of the following, unless clinical conditions suggest otherwise: * Any patient with prior fragility fracture of the hip or vertebrae. A spine fracture indicates 5X risk for subsequent spine fracture and 2X risk for subsequent hip fracture. * Osteoporosis (T-score <-2.5). * Postmenopausal women and men age 50 and older with low bone mass/osteopenia (T-score between -1.0 and -2.5) by DXA and 10-year major osteoporotic fracture greater than 20% or a 10-year probability of hip fracture greater than 3%. These fracture risks are supplied above in the FRAX score, if applicable. * Clinician judgement and/or patient preferences may indicate treatment for people with 10-year fracture probabilities above or below these levels. Dictated by: Dictated on workstation # [id number]
== END ==
LOC: RAD 08:33
PROVIDERS: ATTEND Internal Medicine Endocrinology, Diabetes & Metabolism
DX: Z13.820 Encounter for screening for osteoporosis (principal); M85.89 Other specified disorders of bone density and structure, multiple sites; Z78.0 Asymptomatic menopausal state
CPT/HCPCS: 77080

== ENCOUNTER 2020-03-26 09:34 | Outpatient (CLI) | payer MEDICARE ==
[~2020-03-26] VITALS: Ht 165.1 cm; Wt 75.5 kg
[2020-03-26] MEDS ORDERED: CATHETER FLUSH 10 ML SYR IV PRN (10:00)
[2020-03-26] MEDS ORDERED: NS IV 1000 ML 1,000 ML IV SCH (10:00)
[2020-03-26] MEDS ORDERED: ZOLEDRONATE (NON-FORMULARY) 100 ML IV ONE (10:00)
[2020-03-26] MEDS ORDERED: OMEP20CA18 PO (10:44)
[2020-03-26] MEDS ORDERED: APIX5TAB PO (10:44)
[2020-03-26] MEDS ORDERED: DILT300C36 PO (10:44)
[2020-03-26] MEDS ORDERED: POTA10TA36 PO (10:44)
[2020-03-26] MEDS ORDERED: KRIL500C PO (10:44)
[2020-03-26] MEDS ORDERED: LOSA25TA41 PO (10:56)
[2020-03-26] MEDS ORDERED: MULT-1136 PO (10:56)
[2020-03-26] MEDS ORDERED: METO50TA7 PO (10:56)
[2020-03-26] MEDS ORDERED: VITAMIN D PO (10:56)
[2020-03-26 11:25] VITALS: BP 143/77
== END 2020-03-26 11:25 | disposition home or self-care (01) ==
LOC: SDC 09:34
PROVIDERS: ATTEND Internal Medicine Endocrinology, Diabetes & Metabolism
DX: M81.0 Age-related osteoporosis without current pathological fracture (principal)
CPT/HCPCS: 96365

== ENCOUNTER 2020-11-30 21:06 | Emergency (ER) | payer MEDICARE ==
[~2020-11-30 21:06] MED LIST changes: +APIX5TAB PO; +DILT300C36 PO; +LOSA25TA41 PO; +METO50TA7 PO; +MULT-1136 PO; +OMEP20CA18 PO; +POTA10TA36 PO; +VITAMIN D PO
[2020-11-30 21:26] VITALS: BP_SYST 141; BP_SYST 155; BP_SYST 157; BP_DIAS 77; BP_DIAS 85; BP_DIAS 87
--- NOTE | 2020-11-30 21:49 | ED General ---
General Chief Complaint: Cardiac/General Problems Stated Complaint: TOOK WRONG PILLS FOR BP Source of Information: Patient Exam Limitations: No Limitations History of Present Illness Date Seen by Provider: Nov 30, 2020 Time Seen by Provider: 21:23 Initial Comments Patient to ER by private conveyance with chief complaint that she accidentally took a dose of Cardizem 300 CD and losartan. She typically takes these in the morning and meant to take her beta-nicolle but took these instead. She has a history of atrial fibrillation followed by Dr. Angel. She is feeling a little lightheaded but has not had any brown outs blackout syncope or chest pain, shortness of air nausea fever chills sweats. Allergies and Home Medications Allergies Coded Allergies: amoxicillin (Unverified Allergy, Unknown, RASH, 07/31/14) Home Medications Apixaban 5 Mg Tablet, 5 MG PO BID, (Reported) Diltiazem HCl 300 Mg Cap.er.24h, 300 MG PO DAILY, (Reported) Krill Oil 500 Mg Capsule, 500 MG PO DAILY, (Reported) Losartan Potassium 25 Mg Tablet, 25 MG PO DAILY, (Reported) Metoprolol Succinate 50 Mg Tab.er.24h, 50 MG PO DAILY, (Reported) Multivitamin 1 Each Tablet, 1 EACH PO DAILY, (Reported) Omeprazole 20 Mg Capsule.dr, 20 MG PO DAILY, (Reported) Potassium Chloride 10 Meq Tab.er.prt, 10 MEQ PO UD, (Reported) TAKE ONE TABLET WITH LASIX PRN DOSE [Vitamin D] Unknown Strength , Unknown Dose PO DAILY, (Reported) Patient Home Medication List Home Medication List Reviewed: Yes Review of Systems Review of Systems Constitutional: No chills EENTM: No ear discharge, No ear pain Respiratory: No cough, No short of breath Cardiovascular: No chest pain, No palpitations Gastrointestinal: No abdominal pain, No nausea, No vomiting Genitourinary: No discharge, No dysuria Musculoskeletal: No back pain, No joint pain All Other Systems Reviewed Negative Unless Noted: Yes Past Mecaizw-Rtqvrz-Ukwccm Hx Patient Social History Tobacco Use?: Yes Tobacco type used: Cigarettes Smoking Status: Current Everyday Smoker Substance use?: No Alcohol Use?: No Pt feels they are or have been: No Past Medical History Surgeries: Yes (THROAT,THYROID SURG) Hysterectomy Respiratory: No Cardiac: Yes (A-FIB) Atrial Fibrillation, Hypertension Neurological: No Female Reproductive Disorders: Denies Sexually Transmitted Disease: No HIV/AIDS: No Gastrointestinal: Yes (DIVERTICULITIS, FREQ LOOSE STOOLS) Diverticulosis Musculoskeletal: No Endocrine: No Cancer: No Psychosocial: No Integumentary: Yes Psoriasis Blood Disorders: No Physical Exam Vital Signs Vital Signs - First Documented 11/30/20 21:18 Temp 36.7 Pulse 73 Resp 16 B/P (MAP) 189/92 (124) O2 Delivery Room Air Capillary Refill : Height, Weight, BMI Height: 5'1.00" Weight: 168lbs. 0.0oz. [id number]; 32.45 BMI Method:Stated General Appearance: No Apparent Distress, WD/WN Eyes: Bilateral Eye Normal Inspection, Bilateral Eye PERRL, Bilateral Eye EOMI HEENT: Pharynx Normal, Moist Mucous Membranes Neck: Normal Inspection, Non Tender Respiratory: Lungs Clear, No Accessory Muscle Use, No Respiratory Distress Cardiovascular: Regular Rate, Rhythm, No Edema, Normal Peripheral Pulses Neurologic/Psychiatric: Alert, Oriented x3 Skin: Normal Color, Warm/Dry Progress/Results/Core Measures Suspected Sepsis SIRS Temperature: Pulse: 75 Respiratory Rate: Blood Pressure 141 /87 Mean: 105 Results/Orders My Orders Orders - JASMIN BROWN Orthostatic Vital Signs (Adult (11/30/20 21:26) Vital Signs/I&O 11/30/20 11/30/20 21:18 21:26 Temp 36.7 Pulse 73 64 66 75 Resp 16 B/P (MAP) 189/92 (124) 157/77 (103) 155/85 (108) 141/87 (105) O2 Delivery Room Air Capillary Refill : Blood Pressure Mean: 105 Progress Note : Time: 21:49 Progress Note Orthostats unremarkable. Plan to watch her for about an hour and see how she is doing. Departure Impression Primary Impression: Medication administered in error Qualified Codes: T50.901A - Poisoning by unspecified drugs, medicaments and biological substances, accidental (unintentional), initial encounter Disposition: 01 HOME, SELF-CARE Condition: Stable Departure-Patient Inst. Decision time for Depature: 22:39 Referrals: DANIS WINTER MD (PCP/Family) Primary Care Physician Patient Instructions: Accidental Overdose (DC) Add. Discharge Instructions: Resume your normal medications in the morning. If you are still feeling lightheaded drowsy tired then you may hold your medicines until noon and reassess. Return to the ER if you are having any further difficulties such as shortness of air or chest pain. All discharge instructions reviewed with patient and/or family. Voiced understanding. Copy Copies To 1: DANIS WINTER MD, TITUS J Nov 30, 2020 21:49
[2020-11-30 22:42] VITALS: BP 143/88
== END 2020-11-30 22:48 | disposition home or self-care (01) ==
LOC: EDUNIT# 21:06 → ER 21:08
DX: T46.1X1A Poisoning by calcium-channel blockers, accidental (unintentional), initial encounter (principal); I48.91 Unspecified atrial fibrillation; I10 Essential (primary) hypertension; F17.210 Nicotine dependence, cigarettes, uncomplicated; Z79.01 Long term (current) use of anticoagulants
CPT/HCPCS: 99283

== ENCOUNTER → 2021-01-29 | Outpatient (CLI) | payer MEDICARE ==
--- NOTE | 2021-01-29 17:55 | Diagnostic Imaging Report ---
PROCEDURE: US Thyroid. TECHNIQUE: Multiple real-time grayscale images were obtained of the thyroid in various projections. INDICATION: Thyroid nodules, thyroid enlargement. COMPARISON: 10/05/2019. FINDINGS: The right thyroid measures 58 x 19 x 22 mm, left thyroid 58 x 23 x 28 mm. The isthmus is 2.5 mm. Again seen are a mixture of cystic and solid nodules which appear stable and unchanged. There are no suspicious nodules that would warrant biopsy. There is no inflammatory process. IMPRESSION: Stable appearing multinodular goiter. Dictated by: Dictated on workstation # [id number]
== END ==
LOC: RAD 11:15
PROVIDERS: ATTEND Internal Medicine Endocrinology, Diabetes & Metabolism
DX: E04.2 Nontoxic multinodular goiter (principal)
CPT/HCPCS: 76536

== ENCOUNTER → 2021-03-05 | Outpatient (CLI) | payer MEDICARE ==
--- NOTE | 2021-03-05 11:57 | Diagnostic Imaging Report ---
INDICATION: Routine screening. Comparison is made with prior mammogram 03/24/2019 and 03/21/2018. 2-D and 3-D bilateral screening mammography was performed with CAD. Scattered fibroglandular densities are identified bilaterally. Fibronodular parenchymal pattern is stable. No new mass or malignant-appearing microcalcifications are seen. Axillae are unremarkable. IMPRESSION: No mammographic features suspicious for malignancy are identified. BI-RADS Category 2 ACR BI-RADS Category 2: Benign findings. Result letter will be mailed to the patient. Note: At least 10% of breast cancer is not imaged by mammography. Dictated by: Dictated on workstation # [id number]
== END ==
LOC: RAD 10:05
PROVIDERS: ATTEND Family Medicine
DX: Z12.31 Encounter for screening mammogram for malignant neoplasm of breast (principal)
CPT/HCPCS: 77063; 77067

== ENCOUNTER 2021-04-11 09:49 | Outpatient (CLI) | payer MEDICARE ==
[2021-04-11 10:00] VITALS: BP 150/79
[2021-04-11] MEDS ORDERED: CATHETER FLUSH 10 ML SYR IV PRN (10:30)
[2021-04-11] MEDS ORDERED: NS IV 1000 ML 1,000 ML IV SCH (10:30)
[2021-04-11] MEDS ORDERED: ZOLEDRONATE (RECLAST) 5 MG/100 ML IV ONE (10:30)
== END 2021-04-11 10:48 | disposition home or self-care (01) ==
LOC: SDC 09:49
PROVIDERS: ATTEND Internal Medicine Endocrinology, Diabetes & Metabolism
DX: M81.0 Age-related osteoporosis without current pathological fracture (principal)
CPT/HCPCS: 96365

== ENCOUNTER 2021-05-20 11:09 | Emergency (ER) | payer MEDICARE ==
[~2021-05-20] VITALS: Ht 157 cm; Wt 77.0 kg
[~2021-05-20 11:09] MED LIST changes: -POTA10TA36 PO; +POTA10TA37 PO
[2021-05-20] MEDS ORDERED: RT-ALBUTEROL/IPRATROPIUM 3 ML (DUONEB) VIAL ONE (11:21)
--- NOTE | 2021-05-20 11:25 | ED Cough/URI ---
General Stated Complaint: SOB,COUGH Source: patient Exam Limitations: no limitations (JUSTICE SCHULTZ APRN) History of Present Illness Date Seen by Provider: May 20, 2021 Time Seen by Provider: 11:23 Initial Comments To ER by private vehicle from home with reports of a productive cough, shortness of breath since last night. No chest pain no fever no chills. She has had both Covid vaccines and a booster. The cough is productive. She denies chest pain. She denies any pain anywhere. She does smoke 1ppd. She has known atrial fibrillation on Eliquis and diltiazem sees Dr. Angel. Primary care is Dr. WINTER. She has no other comorbidities. Did not wear oxygen at home and no pre-existing lung disease. Timing/Duration: constant Severity/Quality: moderate Associated Symptoms: cough, wheezing (JUSTICE SCHULTZ APRN) Allergies and Home Medications Allergies Coded Allergies: amoxicillin (Unverified Allergy, Unknown, RASH, 07/31/14) Patient Home Medication List Home Medication List Reviewed: Yes (JUSTICE SCHULTZ APRN) Albuterol Sulfate (Albuterol Sulfate) 2.5 Mg/3 Ml Vial.neb, 2.5 MG INH Q4H PRN for WHEEZING Prescribed by: JUSTICE SCHULTZ on 05/20/21 1230 Apixaban (Eliquis) 5 Mg Tablet, 5 MG PO BID, (Reported) Entered as Reported by: SHARLENE LACEY on 03/26/20 1044 Cefuroxime Axetil (Cefuroxime) 250 Mg Tablet, 250 MG PO BID Prescribed by: JUSTICE SCHULTZ on 05/20/21 1230 Diltiazem HCl (Cardizem Cd) 300 Mg Cap.er.24h, 300 MG PO DAILY, (Reported) Entered as Reported by: SHARLENE LCAEY on 03/26/20 1044 Krill Oil (Krill Oil) 500 Mg Capsule, 500 MG PO DAILY, (Reported) Entered as Reported by: SHARLENE LACEY on 03/26/20 1044 Losartan Potassium (Losartan Potassium) 25 Mg Tablet, 25 MG PO DAILY, (Reported) Entered as Reported by: SHARLENE LACEY on 03/26/20 1056 Metoprolol Succinate (Metoprolol Succinate) 50 Mg Tab.er.24h, 50 MG PO DAILY, (Reported) Entered as Reported by: SHARLENE LACEY on 03/26/20 1056 Multivitamin (Multivitamin) 1 Each Tablet, 1 EACH PO DAILY, (Reported) Entered as Reported by: SHARLENE LACEY on 03/26/20 1056 Omeprazole (Omeprazole) 20 Mg Capsule.dr, 20 MG PO DAILY, (Reported) Entered as Reported by: SHARLENE LACEY on 03/26/20 1044 Potassium Chloride (Potassium Chloride) 10 Meq Tab.er.prt, 10 MEQ PO UD, (Reported) Entered as Reported by: SHARLENE LACEY on 03/26/20 1044 Prednisone (Prednisone) 20 Mg Tab, 20 MG PO DAILY Prescribed by: JUSTICE SCHULTZ on 05/20/21 1230 [Vitamin D] Unknown Strength , Unknown Dose PO DAILY, (Reported) Entered as Reported by: SHARLENE LACEY on 03/26/20 1056 Review of Systems Review of Systems Constitutional: see HPI EENTM: see HPI Respiratory: see HPI, cough, short of breath, wheezing Cardiovascular: no symptoms reported Genitourinary: no symptoms reported Musculoskeletal: no symptoms reported Skin: no symptoms reported Psychiatric/Neurological: No Symptoms Reported Hematologic/Lymphatic: No Symptoms Reported (JUSTICE SCHULTZ APRN) Past Tbsfmyq-Rtzhlz-Wongxy Hx Past Medical History Surgeries: Yes (THROAT,THYROID SURG) Hysterectomy Respiratory: No Cardiac: Yes (A-FIB) Atrial Fibrillation, Hypertension Neurological: No Female Reproductive Disorders: Denies Sexually Transmitted Disease: No HIV/AIDS: No Gastrointestinal: Yes (DIVERTICULITIS, FREQ LOOSE STOOLS) Diverticulosis Musculoskeletal: No Endocrine: No Cancer: No Psychosocial: No Integumentary: Yes Psoriasis Blood Disorders: No (JUSTICE SCHULTZ APRN) Physical Exam Vital Signs - First Documented 05/20/21 11:15 Temp 36.0 Pulse 86 Resp 36 B/P (MAP) 137/94 (108) Pulse Ox 97 O2 Delivery Nasal Cannula O2 Flow Rate 2.00 (JEN SILVA MD) Capillary Refill : (JUSTICE SCHULTZ APRN) Height: 5'1.00" Weight: 168lbs. 0.0oz. 76.031653ls; 32.45 BMI Method:Stated General Appearance: WD/WN, no apparent distress Eyes: Bilateral Eye Normal Inspection, Bilateral Eye PERRL, Bilateral Eye EOMI Respiratory: respiratory distress (Tachypneic with ambulation to room 10. Oxygen saturation is 89 to 90% on room air.), wheezing (Diffuse wheezing) Cardiovascular: regular rate, rhythm, no murmur, other (She is in sinus rhythm with a rate in the 90s at this time) Gastrointestinal: normal bowel sounds, non tender, soft Neurologic/Psychiatric: alert, normal mood/affect, oriented x 3 Skin: normal color, warm/dry (JUSTICE SCHULTZ APRN) Progress/Results/Core Measures Suspected Sepsis SIRS Temperature: Pulse: Respiratory Rate: Laboratory Tests 05/20/21 11:18: White Blood Count 8.6 Blood Pressure / Mean: Laboratory Tests 05/20/21 11:18: Creatinine 0.73, Platelet Count 216, Total Bilirubin 0.2 (JUSTICE SCHULTZ APRN) Results/Orders Lab Results Laboratory Tests Test 05/20/21 11:17 05/20/21 11:18 05/20/21 11:49 Range/Units Influenza Type A (RT-PCR) Not Detected Not Detecte Influenza Type B (RT-PCR) Not Detected Not Detecte SARS-CoV-2 RNA (RT-PCR) Not Detected Not Detecte White Blood Count 8.6 4.3-11.0 10^3/uL Red Blood Count 4.77 3.80-5.11 10^6/uL Hemoglobin 15.5 11.5-16.0 g/dL Hematocrit 46 35-52 % Mean Corpuscular Volume 97 80-99 fL Mean Corpuscular Hemoglobin 33 25-34 pg Mean Corpuscular Hemoglobin Concent 33 32-36 g/dL Red Cell Distribution Width 13.4 10.0-14.5 % Platelet Count 216 130-400 10^3/uL Mean Platelet Volume 9.3 9.0-12.2 fL Immature Granulocyte % (Auto) 1 % Neutrophils (%) (Auto) 67 42-75 % Lymphocytes (%) (Auto) 24 12-44 % Monocytes (%) (Auto) 8 0-12 % Eosinophils (%) (Auto) 0 0-10 % Basophils (%) (Auto) 0 0-10 % Neutrophils # (Auto) 5.8 1.8-7.8 10^3/uL Lymphocytes # (Auto) 2.1 1.0-4.0 10^3/uL Monocytes # (Auto) 0.7 0.0-1.0 10^3/uL Eosinophils # (Auto) 0.0 0.0-0.3 10^3/uL Basophils # (Auto) 0.0 0.0-0.1 10^3/uL Immature Granulocyte # (Auto) 0.0 0.0-0.1 10^3/uL Sodium Level 138 135-145 MMOL/L Potassium Level 3.6 3.6-5.0 MMOL/L Chloride Level 103 98-107 MMOL/L Carbon Dioxide Level 24 21-32 MMOL/L Anion Gap 11 5-14 MMOL/L Blood Urea Nitrogen 12 7-18 MG/DL Creatinine 0.73 0.60-1.30 MG/DL Estimat Glomerular Filtration Rate 77 BUN/Creatinine Ratio 16 Glucose Level 130 H 70-105 MG/DL Calcium Level 8.5 8.5-10.1 MG/DL Corrected Calcium 8.7 8.5-10.1 MG/DL Total Bilirubin 0.2 0.1-1.0 MG/DL Aspartate Amino Transf (AST/SGOT) 24 5-34 U/L Alanine Aminotransferase (ALT/SGPT) 21 0-55 U/L Alkaline Phosphatase 50 40-136 U/L B-Type Natriuretic Peptide 29.5 <100.0 PG/ML Total Protein 7.7 6.4-8.2 GM/DL Albumin 3.8 3.2-4.5 GM/DL Procalcitonin 0.03 <0.10 NG/ML Blood Gas Puncture Site L RAD Blood Gas Patient Temperature 96.9 Arterial Blood pH 7.41 7.37-7.43 Arterial Blood Partial Pressure CO2 38 35-45 MMHG Arterial Blood Partial Pressure O2 75 L 79-93 MMHG Arterial Blood HCO3 24 23-27 MMOL/L Arterial Blood Total CO2 25.0 21.0-31.0 MMOL/L Arterial Blood Oxygen Saturation 97 94-100 % Arterial Blood Base Excess -0.5 -2.5-2.5 MMOL/L Javier Test YES-POS Blood Gas Ventilator Setting NO Blood Gas Inspired Oxygen 2 (JEN SILVA MD) Medications Given in ED Current Medications Medications Dose Ordered Sig/Shaila Route Start Time Stop Time Status Last Admin Dose Admin Albuterol Sulfate 2.5 mg ONCE ONCE INH 05/20/21 12:45 05/20/21 12:46 DC 05/20/21 12:44 2.5 MG Albuterol/ Ipratropium 3 ml ONCE ONCE INH 05/20/21 11:30 05/20/21 11:31 DC 05/20/21 11:21 3 ML Methylprednisolone Sodium Succinate 125 mg ONCE ONCE IVP 05/20/21 11:30 05/20/21 11:31 DC 05/20/21 11:40 125 MG (JEN SILVA MD) Vital Signs/I&O 05/20/21 05/20/21 05/20/21 11:15 12:44 13:15 Temp 36.0 Pulse 86 82 Resp 36 18 B/P (MAP) 137/94 (108) 132/78 Pulse Ox 97 94 94 O2 Delivery Nasal Cannula Room Air Room Air O2 Flow Rate 2.00 (JEN SILVA MD) Vital Signs/I&O Capillary Refill : (JUSTICE SCHULTZ APRN) Departure Communication (Admissions) 1228-oxygen saturation 96% on 2 L. She does not wear oxygen at home. She feels quite a bit better after the breathing treatment. Still a bit wheezy. Does not have a nebulizer at home so I will write for 1 of those to be sent home with her. I turned the oxygen off after the treatment now that she is feeling better and if she remains over 92% I will send her home without oxygen. If she drops and I will send her home with oxygen. I will go ahead and send in some antibiotics, nebulizer albuterol and prednisone to [facility] pharmacy. She does not report any history of COPD but has smoked about 1 pack/day since the age of 17 and she is now 81. 1241-still 94% on room air. Will give one more albuterol tx and dc (JUSTICE SCHULTZ APRN) Impression Primary Impression: COPD exacerbation Disposition: 01 HOME, SELF-CARE Condition: Stable Departure-Patient Inst. Decision time for Depature: 12:29 (JUSTICE SCHULTZ APRN) Referrals: DANIS WINTER MD (PCP/Family) Primary Care Physician Patient Instructions: COPD Exacerbation, Adult ED Add. Discharge Instructions: 1. Use the breathing machine every 4 hours for the next 3 days. Take the steroids as directed. Return to ER for any worsening. Scripts Albuterol Sulfate (Albuterol Sulfate) 2.5 Mg/3 Ml Vial.neb 2.5 MG INH Q4H PRN for WHEEZING, #25 EA Prov: JUSTICE SCHULTZ APRN 05/20/21 Cefuroxime Axetil (Cefuroxime) 250 Mg Tablet 250 MG PO BID, #10 TAB Prov: JUSTICE SCHULTZ APRN 05/20/21 Prednisone (Prednisone) 20 Mg Tab 20 MG PO DAILY, #11 TAB Take 3 tabs(60mg)daily, decrease by 1/2 tab(10mg)daily. Prov: JUSTICE SCHULTZ APRN 05/20/21 ATTENDING PHYSICIAN NOTE: I was physically present as attending physician in the emergency department during the care of this patient, but I was not directly involved in the decision making or delivery of care for this patient. (JEN SILVA MD) Copy Copies To 1: DANIS WINTER MD, PETER J APRN May 20, 2021 11:25 JEN SILVA MD May 20, 2021 18:32
[2021-05-20 11:30] LABS: BASOPHILS % (AUTO) 0 % (0-10); EOSINOPHILS % (AUTO) 0 % (0-10); HEMATOCRIT 46 % (35-52); HEMOGLOBIN 15.5 g/dL (11.5-16.0); LYMPHOCYTES # (AUTO) 2.1 10^3/uL (1.0-4.0); LYMPHOCYTES % (AUTO) 24 % (12-44); MEAN CORPUSCULAR HEMOGLOBIN 33 pg (25-34); MEAN CORPUSCULAR HGB CONC 33 g/dL (32-36); MEAN CORPUSCULAR VOLUME 97 fL (80-99); MEAN PLATELET VOLUME 9.3 fL (9.0-12.2); MONOCYTES # (AUTO) 0.7 10^3/uL (0.0-1.0); MONOCYTES % (AUTO) 8 % (0-12); NEUTROPHILS # (AUTO) 5.8 10^3/uL (1.8-7.8); NEUTROPHILS % (AUTO) 67 % (42-75); PLATELET COUNT 216 10^3/uL (130-400); WHITE BLOOD COUNT 8.6 10^3/uL (4.3-11.0)
[2021-05-20] MEDS ORDERED: methylPREDNISolone 125 MG (Solu-MEDROL) VIAL IVP ONE (11:30)
[2021-05-20] MEDS ORDERED: RT-ALBUTEROL/IPRATROPIUM 3 ML (DUONEB) VIAL INH ONE (11:30)
[2021-05-20 11:36] LABS: ALBUMIN 3.8 GM/DL (3.2-4.5); POTASSIUM 3.6 MMOL/L (3.6-5.0)
[2021-05-20 11:37] LABS: CALCIUM 8.5 MG/DL (8.5-10.1)
[2021-05-20 11:39] LABS: TOTAL PROTEIN 7.7 GM/DL (6.4-8.2)
[2021-05-20 11:40] LABS: BILIRUBIN,TOTAL 0.2 MG/DL (0.1-1.0)
[2021-05-20 11:42] LABS: CREATININE SERUM 0.73 MG/DL (0.60-1.30)
[2021-05-20 12:00] LABS: ABG BASE EXCESS -0.5 MMOL/L (-2.5-2.5); ABG OXYGEN SATURATION 97 % (94-100); ABG PCO2 38 MMHG (35-45); ABG PH 7.41 (7.37-7.43); ABG PO2 75 MMHG (79-93)
[2021-05-20 12:01] LABS: ALLENS TEST YES-POS; INSPIRED O2 2; PATIENT TEMP 96.9; VENTILATOR NO
[2021-05-20] MEDS ORDERED: CEFU250T80 PO (12:30)
[2021-05-20] MEDS ORDERED: PRD20T PO (12:30)
[2021-05-20] MEDS ORDERED: ALBU2.5V4 INH (12:30)
[2021-05-20] MEDS ORDERED: RT-ALBUTEROL SULF 2.5 MG/3 ML PRE-MIX VIAL INH ONE (12:45)
--- NOTE | 2021-05-20 12:47 | Diagnostic Imaging Report ---
INDICATION: Cough and congestion, COVID positive. EXAMINATION: Chest 05/20/2021. COMPARISON: 06/02/2013 FINDINGS: Heart and pulmonary vasculature appear unremarkable. There is likely infiltrate at the right lung base. Remaining lungs appear clear. No effusions. No pneumothorax. IMPRESSION: 1. Suspected infiltrate at the right lung base. Dictated by: Dictated on workstation # [id number]
[2021-05-20 13:15] VITALS: BP 132/78
== END 2021-05-20 13:15 | disposition home or self-care (01) ==
LOC: EDUNIT# 11:09 → ER 11:11
DX: J44.1 Chronic obstructive pulmonary disease with (acute) exacerbation (principal); I10 Essential (primary) hypertension; I48.91 Unspecified atrial fibrillation; Z20.822 Contact with and (suspected) exposure to COVID-19; Z79.01 Long term (current) use of anticoagulants
CPT/HCPCS: 36415; 71045; 80053; 82805; 83880; 84145; 85025; 87636; 94640

== ENCOUNTER 2021-05-27 08:35 | Emergency (ER) | payer MEDICARE ==
[~2021-05-27] VITALS: Ht 154 cm; Wt 77.0 kg
[~2021-05-27 08:35] MED LIST changes: +ALBU2.5V4 INH; +CEFU250T80 PO; +PRD20T PO
--- NOTE | 2021-05-27 09:07 | ED Respiratory ---
General Chief Complaint: Respiratory Problems Stated Complaint: COPD,SOB Nursing Triage Note: ARRIVED VIA WC TO ROOM 06 WITH COMPLAINTS OF SOA. WAS SEEN HERE LAST WEEK ET TESTED NEG AND WAS DX WITH COPD. Source: patient, old records Exam Limitations: no limitations History of Present Illness Date Seen by Provider: May 27, 2021 Time Seen by Provider: 08:50 Initial Comments This 81-year-old woman presents to the emergency room with worsening shortness of breath. She was seen in the emergency room a week ago with COPD exacerbation. She had not reportedly been diagnosed with any respiratory conditions prior to that. She was discharged on cefuroxime, prednisone, and nebulizer treatments. Chest x-ray at that time suggested a possible lower lobe infiltrate. Patient denies any fever. She has been fully vaccinated for COVID- 19. She did not try a nebulizer treatment this morning. She has atrial fibrillation for which she takes Cardizem and Eliquis. She did take her medications this morning. She has a grade 1 diastolic dysfunction noted on echocardiogram in 2019. She has no known coronary artery disease and her last stress test was negative. Dr. Luo is her wood box maker and Dr. Araujo is her primary care provider. She denies chest pain. Allergies and Home Medications Allergies Coded Allergies: amoxicillin (Unverified Allergy, Unknown, RASH, 07/31/14) Patient Home Medication List Home Medication List Reviewed: Yes Albuterol Sulfate (Albuterol Sulfate) 2.5 Mg/3 Ml Vial.neb, 2.5 MG INH Q4H PRN for WHEEZING Prescribed by: JUSTICE SCHULTZ on 05/20/21 1230 Albuterol Sulfate (Albuterol Sulfate) 2.5 Mg/3 Ml Vial.neb, 2.5 MG INH Q4H PRN for WHEEZING Prescribed by: JEN CAVAZOS on 05/27/21 1332 Apixaban (Eliquis) 5 Mg Tablet, 5 MG PO BID, (Reported) Entered as Reported by: SHARLENE LACEY on 03/26/20 1044 Cefuroxime Axetil (Cefuroxime) 250 Mg Tablet, 250 MG PO BID Prescribed by: JUSTICE SCHULTZ on 05/20/21 1230 Diltiazem HCl (Cardizem Cd) 300 Mg Cap.er.24h, 300 MG PO DAILY, (Reported) Entered as Reported by: SHARLENE LACEY on 03/26/20 1044 Krill Oil (Krill Oil) 500 Mg Capsule, 500 MG PO DAILY, (Reported) Entered as Reported by: SHARLENE LACEY on 03/26/20 1044 Losartan Potassium (Losartan Potassium) 25 Mg Tablet, 25 MG PO DAILY, (Reported) Entered as Reported by: SHARLENE LACEY on 03/26/20 1056 Metoprolol Succinate (Metoprolol Succinate) 50 Mg Tab.er.24h, 50 MG PO DAILY, (Reported) Entered as Reported by: SHARLENE LACEY on 03/26/20 1056 Multivitamin (Multivitamin) 1 Each Tablet, 1 EACH PO DAILY, (Reported) Entered as Reported by: SHARLENE LACEY on 03/26/20 1056 Omeprazole (Omeprazole) 20 Mg Capsule.dr, 20 MG PO DAILY, (Reported) Entered as Reported by: SHARLENE LACEY on 03/26/20 104 Potassium Chloride (Potassium Chloride) 10 Meq Tab.er.prt, 10 MEQ PO UD, (Re ported) Entered as Reported by: SHARLENE LACEY on 03/26/20 1044 Prednisone (Prednisone) 20 Mg Tab, 20 MG PO DAILY Prescribed by: JUSTICE SCHULTZ on 05/20/21 1230 Prednisone (Prednisone) 20 Mg Tab, 20 MG PO DAILY Prescribed by: JEN CAVAZOS on 05/27/21 1332 [Vitamin D] Unknown Strength , Unknown Dose PO DAILY, (Reported) Entered as Reported by: SHARLENE LACEY on 03/26/20 1056 Review of Systems Review of Systems Constitutional: no symptoms reported EENTM: no symptoms reported Respiratory: see HPI Cardiovascular: see HPI Gastrointestinal: no symptoms reported Genitourinary: no symptoms reported Musculoskeletal: no symptoms reported Skin: no symptoms reported Psychiatric/Neurological: No Symptoms Reported Hematologic/Lymphatic: No Symptoms Reported Immunological/Allergic: no symptoms reported Past Wdbgyzh-Zyjpca-Xbzrxw Hx Patient Social History Tobacco Use?: Yes Tobacco type used: Cigarettes Substance use?: No Alcohol Use?: No Immunizations Up To Date COVID19 Vaccine Carder Blankets: JOSHUA Past Medical History Surgeries: Yes (THROAT,THYROID SURG) Hysterectomy Respiratory: Yes COPD Cardiac: Yes (A-FIB) Atrial Fibrillation, Hypertension Neurological: No Female Reproductive Disorders: Denies Sexually Transmitted Disease: No HIV/AIDS: No Gastrointestinal: Yes (DIVERTICULITIS, FREQ LOOSE STOOLS) Diverticulosis Musculoskeletal: No Endocrine: No HEENT: No Cancer: No Psychosocial: No Integumentary: Yes Psoriasis Blood Disorders: No Physical Exam Vital Signs - First Documented 05/27/21 08:40 Temp 36.6 Pulse 79 Resp 22 B/P (MAP) 149/104 (119) Pulse Ox 97 O2 Delivery Room Air Capillary Refill : Less Than 3 Seconds Height: 5'1.00" Weight: 168lbs. 0.0oz. 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 II-XII nml as tested, no motor/sensory deficits, alert, normal mood/affect, oriented x 3 Skin: normal color, warm/dry Progress/Results/Core Measures Suspected Sepsis SIRS Temperature: Pulse: 79 Respiratory Rate: 22 Laboratory Tests 05/27/21 09:19: White Blood Count 11.3H Blood Pressure 149 /104 Mean: 119 Laboratory Tests 05/27/21 09:19: Creatinine 0.78, Platelet Count 311, Total Bilirubin 0.5 Results/Orders Lab Results Laboratory Tests Test 05/27/21 08:49 05/27/21 09:19 Range/Units Influenza Type A (RT-PCR) Not Detected Not Detecte Influenza Type B (RT-PCR) Not Detected Not Detecte SARS-CoV-2 RNA (RT-PCR) Not Detected Not Detecte White Blood Count 11.3 H 4.3-11.0 10^3/uL Red Blood Count 4.64 3.80-5.11 10^6/uL Hemoglobin 15.1 11.5-16.0 g/dL Hematocrit 44 35-52 % Mean Corpuscular Volume 95 80-99 fL Mean Corpuscular Hemoglobin 33 25-34 pg Mean Corpuscular Hemoglobin Concent 34 32-36 g/dL Red Cell Distribution Width 13.3 10.0-14.5 % Platelet Count 311 130-400 10^3/uL Mean Platelet Volume 9.2 9.0-12.2 fL Immature Granulocyte % (Auto) 2 % Neutrophils (%) (Auto) 66 42-75 % Lymphocytes (%) (Auto) 23 12-44 % Monocytes (%) (Auto) 8 0-12 % Eosinophils (%) (Auto) 1 0-10 % Basophils (%) (Auto) 0 0-10 % Neutrophils # (Auto) 7.5 1.8-7.8 10^3/uL Lymphocytes # (Auto) 2.6 1.0-4.0 10^3/uL Monocytes # (Auto) 0.9 0.0-1.0 10^3/uL Eosinophils # (Auto) 0.1 0.0-0.3 10^3/uL Basophils # (Auto) 0.0 0.0-0.1 10^3/uL Immature Granulocyte # (Auto) 0.2 H 0.0-0.1 10^3/uL Sodium Level 138 135-145 MMOL/L Potassium Level 3.4 L 3.6-5.0 MMOL/L Chloride Level 104 98-107 MMOL/L Carbon Dioxide Level 23 21-32 MMOL/L Anion Gap 11 5-14 MMOL/L Blood Urea Nitrogen 15 7-18 MG/DL Creatinine 0.78 0.60-1.30 MG/DL Estimat Glomerular Filtration Rate 71 BUN/Creatinine Ratio 19 Glucose Level 134 H 70-105 MG/DL Calcium Level 8.6 8.5-10.1 MG/DL Corrected Calcium 9.1 8.5-10.1 MG/DL Total Bilirubin 0.5 0.1-1.0 MG/DL Aspartate Amino Transf (AST/SGOT) 17 5-34 U/L Alanine Aminotransferase (ALT/SGPT) 68 H 0-55 U/L Alkaline Phosphatase 44 40-136 U/L C-Reactive Protein High Sensitivity 0.10 0.00-0.50 MG/DL B-Type Natriuretic Peptide 35.0 <100.0 PG/ML Total Protein 6.6 6.4-8.2 GM/DL Albumin 3.4 3.2-4.5 GM/DL Procalcitonin 0.02 <0.10 NG/ML My Orders Orders - JEN SILVA MD Bnp Travis (05/27/21 08:57) Cbc With Automated Diff (05/27/21 08:57) Comprehensive Metabolic Panel (05/27/21 08:57) Hs C Reactive Protein (05/27/21 08:57) Chest 1 View, Ap/Pa Only (05/27/21 08:57) Monitor-Rhythm Ecg Trace Only (05/27/21 08:57) Covid 19 Inhouse Test (05/27/21 08:57) Influenza A And B By Pcr (05/27/21 08:57) Albuterol Inhaler (Albuterol) (05/27/21 10:00) Procalcitonin (Pct) (05/27/21 09:03) Methylprednisolone Sod Succ (Solu-Medrol (05/27/21 09:30) Albuterol Pre-Mix Nebs (Rt) (Proventil (05/27/21 10:52) Albuterol/Ipra Inhalation Soln (Duoneb I (05/27/21 11:00) Svn Small Volume Nebulizer (05/27/21 10:52) Svn Small Volume Nebulizer (05/27/21 10:52) Medications Given in ED Current Medications Medications Dose Ordered Sig/Shaila Route Start Time Stop Time Status Last Admin Dose Admin Albuterol Sulfate 4 PUFFS RTQ4HR ONCE IH 05/27/21 10:00 05/27/21 10:01 DC 05/27/21 09:12 1 GM Albuterol/ Ipratropium 3 ml ONCE ONCE INH 05/27/21 11:00 05/27/21 11:01 DC 05/27/21 11:10 3 ML Methylprednisolone Sodium Succinate 125 mg ONCE ONCE IVP 05/27/21 09:30 05/27/21 09:31 DC 05/27/21 10:03 125 MG Vital Signs/I&O 05/27/21 05/27/21 05/27/21 08:40 11:11 13:38 Temp 36.6 Pulse 79 92 Resp 22 16 B/P (MAP) 149/104 (119) 106/65 Pulse Ox 97 97 98 O2 Delivery Room Air Room Air Room Air Capillary Refill : Less Than 3 Seconds Blood Pressure Mean: 119 Progress Note #1: Time: 09:15 Progress Note Patient was seen and examined. Albuterol inhaler is being administered. Work- up is pending to evaluate for Covid, influenza, and pneumonia. We will also give Solu-Medrol. Progress Note #2: Time: 13:30 Progress Note Patient has history of A. fib and is anticoagulated. She was rate controlled on the monitor. No evidence of active bacterial infection was found on work-up. She had significant improvement after an hour-long treatment. She was offered admission to the hospital due to failure of outpatient course of therapy, however she strongly desired to return home. Since she was not in distress and oxygen saturation was 96% on room air after the hour-long treatment, she was allowed to be discharged home with a low threshold for returning. We will put her on a higher dose, longer steroid taper. Diagnostic Imaging Diagonstic Imaging: Xray Plain Films/CT/US/NM/MRI: chest Comments NAME: SANDRA VÁZQUEZ [facility] REC#: [id number] PT STATUS: REG ER : 1940 PHYSICIAN: JEN SILVA MD ADMIT DATE: 05/27/21/ER Signed Date of Exam:05/27/21 CHEST 1 VIEW, AP/PA ONLY EXAMINATION: Chest 1 view HISTORY: Shortness of breath COMPARISON: 05/20/2021 FINDINGS: Heart size and pulmonary vasculature are normal. The lungs are clear without consolidation, pleural effusion, or pneumothorax. The osseous structures are intact. IMPRESSION: 1. No acute radiographic abnormality in the chest. Dictated by: Dictated on workstation # [id number] Dict: 05/27/21 1000 Trans: 05/27/[address] [facility] [id number] Interpreted by: ASHLEY ALLEN DO Electronically signed by: ASHLEY ALLEN DO 05/27/21 1013 Departure Impression Primary Impression: COPD exacerbation Disposition: 01 HOME, SELF-CARE Condition: Improved Departure-Patient Inst. Decision time for Depature: 13:28 Referrals: DANIS ARAUJO MD (PCP/Family) Primary Care Physician Patient Instructions: COPD Exacerbation, Adult ED Add. Discharge Instructions: Complete the steroid taper as prescribed. Take prednisone early of the day with food or milk to avoid sleep disturbance and stomach upset. For the next 24 to 48 hours use your nebulizer treatments every 4 hours on a schedule. Then use as needed for shortness of air or wheezing. You may occasionally use a rescue treatment every 2 hours. However, if you are requiring repeated nebulizer treatments more frequently than every 4 hours you should return to the emergency room. Return to the emergency room if you have any other notable worsening of condition or new symptoms such as fever. Drink plenty of clear liquids to stay well-hydrated. Follow-up with your primary care provider soon as possible for repeat examination and discussion of COPD maintenance treatments. All discharge instructions reviewed with patient and/or family. Voiced understanding. Scripts Albuterol Sulfate (Albuterol Sulfate) 2.5 Mg/3 Ml Vial.neb 2.5 MG INH Q4H PRN for WHEEZING, #50 EA 1 Refill Prov: JEN SILVA MD 05/27/21 Prednisone (Prednisone) 20 Mg Tab 20 MG PO DAILY, #22 TAB Take 3 tabs(60mg)daily,decrease by 1/2 tab(10mg)every other day. Prov: JEN SILVA MD 05/27/21 Copy Copies To 1: DANIS ARAUJO MD, JOSHUA T MD May 27, 2021 09:07
[2021-05-27 09:24] LABS: BASOPHILS % (AUTO) 0 % (0-10); EOSINOPHILS # (AUTO) 0.1 10^3/uL (0.0-0.3); EOSINOPHILS % (AUTO) 1 % (0-10); HEMATOCRIT 44 % (35-52); HEMOGLOBIN 15.1 g/dL (11.5-16.0); LYMPHOCYTES # (AUTO) 2.6 10^3/uL (1.0-4.0); LYMPHOCYTES % (AUTO) 23 % (12-44); MEAN CORPUSCULAR HEMOGLOBIN 33 pg (25-34); MEAN CORPUSCULAR HGB CONC 34 g/dL (32-36); MEAN CORPUSCULAR VOLUME 95 fL (80-99); MEAN PLATELET VOLUME 9.2 fL (9.0-12.2); MONOCYTES # (AUTO) 0.9 10^3/uL (0.0-1.0); MONOCYTES % (AUTO) 8 % (0-12); NEUTROPHILS # (AUTO) 7.5 10^3/uL (1.8-7.8); NEUTROPHILS % (AUTO) 66 % (42-75); PLATELET COUNT 311 10^3/uL (130-400); WHITE BLOOD COUNT 11.3 10^3/uL (4.3-11.0)
[2021-05-27] MEDS ORDERED: methylPREDNISolone 125 MG (Solu-MEDROL) VIAL IVP ONE (09:30)
[2021-05-27 09:38] LABS: ALBUMIN 3.4 GM/DL (3.2-4.5); POTASSIUM 3.4 MMOL/L (3.6-5.0)
[2021-05-27 09:39] LABS: CALCIUM 8.6 MG/DL (8.5-10.1)
[2021-05-27 09:40] LABS: TOTAL PROTEIN 6.6 GM/DL (6.4-8.2)
[2021-05-27 09:42] LABS: BILIRUBIN,TOTAL 0.5 MG/DL (0.1-1.0)
[2021-05-27 09:44] LABS: CREATININE SERUM 0.78 MG/DL (0.60-1.30)
[2021-05-27] MEDS ORDERED: RT-ALBUTEROL HFA 8.5 GM INHALER IH ONE (10:00)
--- NOTE | 2021-05-27 10:01 | Diagnostic Imaging Report ---
EXAMINATION: Chest 1 view HISTORY: Shortness of breath COMPARISON: 05/20/2021 FINDINGS: Heart size and pulmonary vasculature are normal. The lungs are clear without consolidation, pleural effusion, or pneumothorax. The osseous structures are intact. IMPRESSION: 1. No acute radiographic abnormality in the chest. Dictated by: Dictated on workstation # [id number]
[2021-05-27] MEDS ORDERED: RT-ALBUTEROL SULF 2.5 MG/3 ML PRE-MIX VIAL INH STA (10:52)
[2021-05-27] MEDS ORDERED: RT-ALBUTEROL/IPRATROPIUM 3 ML (DUONEB) VIAL INH ONE (11:00)
[2021-05-27] MEDS ORDERED: PRD20T PO (13:32)
[2021-05-27] MEDS ORDERED: ALBU2.5V4 INH (13:32)
[2021-05-27 13:38] VITALS: BP 106/65
== END 2021-05-27 13:38 | disposition home or self-care (01) ==
LOC: EDUNIT# 08:35 → ER 08:36
DX: J44.1 Chronic obstructive pulmonary disease with (acute) exacerbation (principal); I10 Essential (primary) hypertension; I48.91 Unspecified atrial fibrillation; L40.9 Psoriasis, unspecified; F17.210 Nicotine dependence, cigarettes, uncomplicated; Z20.822 Contact with and (suspected) exposure to COVID-19; Z88.1 Allergy status to other antibiotic agents; Z79.52 Long term (current) use of systemic steroids; Z79.83 Long term (current) use of bisphosphonates; Z79.01 Long term (current) use of anticoagulants; Z79.899 Other long term (current) drug therapy
CPT/HCPCS: 36415; 71045; 80053; 83880; 84145; 85025; 86141; 87636; 93041; 94640; 94644

== ENCOUNTER → 2021-06-16 | Outpatient (CLI) | payer MEDICARE ==
--- NOTE | 2021-06-16 15:43 | Diagnostic Imaging Report ---
PROCEDURE: CT chest without contrast. TECHNIQUE: Multiple contiguous axial images were obtained through the chest without the use of intravenous contrast. Auto Exposure Controls were utilized during the CT exam to meet ALARA standards for radiation dose reduction. INDICATION: COPD COMPARISON: No priors. There is a focal largely airspaced density left lower lobe infrahilar nodular opacity measuring 1.9 x 1.5 cm favored to reflect inflammatory disease. Neoplasm doubtful but I would recommend a follow-up nonenhanced chest CT in 2-3 months. There is a tiny 3 mm subpleural granuloma in the right lower lobe. No other focal pulmonary parenchymal abnormality. There is no axillary, hilar or mediastinal lymphadenopathy. There is atherosclerotic vascular disease without demonstrated aneurysm. There is no pleural or pericardial effusion. The visualized upper abdomen showed no acute appearing abnormality. The bony structures nonacute. IMPRESSION: Probable scarring versus inflammatory changes infrahilar left lower lobe where there is an airspace nodule. Follow-up recommended in 2-3 months as neoplasm while doubtful could not be definitively excluded. No other potential acute finding Dictated by: Dictated on workstation # [id number]
== END ==
LOC: RAD 13:15
PROVIDERS: ATTEND Nurse Practitioner Family
DX: J44.9 Chronic obstructive pulmonary disease, unspecified (principal); Z87.891 Personal history of nicotine dependence
CPT/HCPCS: 71250

== ENCOUNTER 2021-07-02 06:46 | Emergency (ER) | payer MEDICARE ==
[~2021-07-02] VITALS: Ht 154 cm; Wt 77.0 kg
[2021-07-02 06:55] VITALS: BP 154/91
--- NOTE | 2021-07-02 07:22 | ED GI ---
General Chief Complaint: Rect Problems Stated Complaint: RECTAL BLEEDING Nursing Triage Note: ARRIVED VIA AMB WITH COMPLAINTS OF RECTAL BLEEDING STARTING LAST NIGHT. DENIES PAIN. Source of Information: Patient Exam Limitations: No Limitations History of Present Illness Date Seen by Provider: Jul 02, 2021 Time Seen by Provider: 07:05 Initial Comments Patient is an 81-year-old female who presents to the emergency department with her son this morning chief complaint of bloody stool. Patient states she had a couple of episodes on June 30 of some bloody stools that resolved then last night started having a recurrence. Patient states every time she goes to the bathroom she passes bright red blood. She states her bowel movements have otherwise been "normal". She denies diarrhea or constipation. She originally thought she had hemorrhoid issues but states that the blood is persisting. She is anticoagulated on Eliquis with a history of atrial fibrillation. She has been on it for many years. Patient states she did not take her Eliquis dose this morning. She denies abdominal pain. She is not nauseous. She tells me she does have a history of diverticulosis. Prior abdominal surgery is a h ysterectomy only. No recent fevers, chills, productive cough, chest pain. She is occasionally short of breath. All other review of systems reviewed and negative except as stated. Timing/Duration: 1 Day Severity/Quality: Moderate Location: LLQ (slight discomfort) Radiation: No Radiation Associated Symptoms: Denies Symptoms Allergies and Home Medications Allergies Coded Allergies: Penicillins (Verified Allergy, Unknown, 07/02/21) amoxicillin (Unverified Allergy, Unknown, RASH, 07/31/14) Patient Home Medication List Home Medication List Reviewed: Yes Albuterol Sulfate (Albuterol Sulfate) 2.5 Mg/3 Ml Vial.neb, 2.5 MG INH Q4H PRN for WHEEZING Prescribed by: JUSTICE SCHULTZ on 05/20/21 1230 Albuterol Sulfate (Albuterol Sulfate) 2.5 Mg/3 Ml Vial.neb, 2.5 MG INH Q4H PRN for WHEEZING Prescribed by: JEN CAVAZOS on 05/27/21 1332 Apixaban (Eliquis) 5 Mg Tablet, 5 MG PO BID, (Reported) Entered as Reported by: SHARLENE LACEY on 03/26/20 1044 Cefuroxime Axetil (Cefuroxime) 250 Mg Tablet, 250 MG PO BID Prescribed by: JUSTICE SCHULTZ on 05/20/21 1230 Diltiazem HCl (Cardizem Cd) 300 Mg Cap.er.24h, 300 MG PO DAILY, (Reported) Entered as Reported by: SHARLEEN LACEY on 03/26/20 1044 Krill Oil (Krill Oil) 500 Mg Capsule, 500 MG PO DAILY, (Reported) Entered as Reported by: SHARLENE LACEY on 03/26/20 1044 Losartan Potassium (Losartan Potassium) 25 Mg Tablet, 25 MG PO DAILY, (Reported) Entered as Reported by: SHARLENE LACEY on 03/26/20 1056 Metoprolol Succinate (Metoprolol Succinate) 50 Mg Tab.er.24h, 50 MG PO DAILY, (Reported) Entered as Reported by: SHARLENE LACEY on 03/26/20 1056 Multivitamin (Multivitamin) 1 Each Tablet, 1 EACH PO DAILY, (Reported) Entered as Reported by: SHARLENE LACEY on 03/26/20 1056 Omeprazole (Omeprazole) 20 Mg Capsule.dr, 20 MG PO DAILY, (Reported) Entered as Reported by: SHARLENE LACEY on 03/26/20 1044 Potassium Chloride (Potassium Chloride) 10 Meq Tab.er.prt, 10 MEQ PO UD, (Reported) Entered as Reported by: SHARLENE LACEY on 03/26/20 1044 Prednisone (Prednisone) 20 Mg Tab, 20 MG PO DAILY Prescribed by: JUSTICE SCHULTZ on 05/20/21 1230 Prednisone (Prednisone) 20 Mg Tab, 20 MG PO DAILY Prescribed by: JEN CAVAZOS on 05/27/21 1332 [Vitamin D] Unknown Strength , Unknown Dose PO DAILY, (Reported) Entered as Reported by: SHARLENE LACEY on 03/26/20 1056 Review of Systems Review of Systems Constitutional: see HPI EENTM: No Symptoms Reported Respiratory: Shortness of Air (chronic) Cardiovascular: No Symptoms Reported Gastrointestinal: Other (bloody stools) Genitourinary: No Symptoms Reported Musculoskeletal: no symptoms reported Skin: no symptoms reported All Other Systems Reviewed Negative Unless Noted: Yes Past Qfrvzsb-Usbdln-Uwzqbk Hx Patient Social History Smokeless Tobacco Frequency: Former User Substance use?: No Alcohol Use?: No Pt feels they are or have been: No Immunizations Up To Date Third COVID19 Vaccination Date: 04/20 COVID19 Vaccine Scraper Loader Operator: MODERNGabriella Past Medical History Surgeries: Yes (THROAT,THYROID SURG) Hysterectomy Respiratory: Yes COPD Cardiac: Yes (A-FIB) Atrial Fibrillation, Hypertension Neurological: No Female Reproductive Disorders: Denies Sexually Transmitted Disease: No HIV/AIDS: No Gastrointestinal: Yes (DIVERTICULITIS, FREQ LOOSE STOOLS) Diverticulosis Musculoskeletal: No Endocrine: No HEENT: No Cancer: No Psychosocial: No Integumentary: Yes Psoriasis Blood Disorders: No Physical Exam Vital Signs Vital Signs - First Documented 07/02/21 06:55 Temp 36.4 Pulse 95 Resp 16 B/P (MAP) 154/91 (112) Pulse Ox 95 O2 Delivery Room Air Capillary Refill : Less Than 3 Seconds Height/Weight/BMI Height: 5'1.00" Weight: 168lbs. 0.0oz. 76.990642hy; 32.00 BMI Method:Stated General Appearance: WD/WN, no apparent distress HEENT: PERRL/EOMI Neck: full range of motion, normal inspection Respiratory: lungs clear, normal breath sounds, no respiratory distress, no accessory muscle use Cardiovascular: regular rate, rhythm Gastrointestinal: normal bowel sounds, soft, other (slight discomfort in the le ft lower quadrant to deep palpation) Rectal: other (patient has multiple external non-thrombosed hemorrhoids. maroonish blood on the skin around the rectum. RENUKA shows soft brown stool in the rectal vault that is not grossly bloody. No masses palpated in the rectum. not a particularly painful rectal exam.) Extremities: normal range of motion, non-tender, normal inspection, no pedal edema, no calf tenderness, normal capillary refill Neurologic/Psychiatric: no motor/sensory deficits, alert, normal mood/affect, oriented x 3 Skin: normal color, warm/dry Progress/Results/Core Measures Results/Orders Lab Results Laboratory Tests Test 07/02/21 07:19 Range/Units White Blood Count 9.6 4.3-11.0 10^3/uL Red Blood Count 4.29 3.80-5.11 10^6/uL Hemoglobin 13.6 11.5-16.0 g/dL Hematocrit 41 35-52 % Mean Corpuscular Volume 96 80-99 fL Mean Corpuscular Hemoglobin 32 25-34 pg Mean Corpuscular Hemoglobin Concent 33 32-36 g/dL Red Cell Distribution Width 12.7 10.0-14.5 % Platelet Count 371 130-400 10^3/uL Mean Platelet Volume 9.0 9.0-12.2 fL Immature Granulocyte % (Auto) 1 % Neutrophils (%) (Auto) 64 42-75 % Lymphocytes (%) (Auto) 22 12-44 % Monocytes (%) (Auto) 11 0-12 % Eosinophils (%) (Auto) 2 0-10 % Basophils (%) (Auto) 1 0-10 % Neutrophils # (Auto) 6.2 1.8-7.8 10^3/uL Lymphocytes # (Auto) 2.1 1.0-4.0 10^3/uL Monocytes # (Auto) 1.1 H 0.0-1.0 10^3/uL Eosinophils # (Auto) 0.2 0.0-0.3 10^3/uL Basophils # (Auto) 0.1 0.0-0.1 10^3/uL Immature Granulocyte # (Auto) 0.1 0.0-0.1 10^3/uL Prothrombin Time 14.8 H 12.2-14.7 SEC INR Comment 1.1 0.8-1.4 Activated Partial Thromboplast Time 32 24-35 SEC Sodium Level 139 135-145 MMOL/L Potassium Level 3.9 3.6-5.0 MMOL/L Chloride Level 105 98-107 MMOL/L Carbon Dioxide Level 23 21-32 MMOL/L Anion Gap 11 5-14 MMOL/L Blood Urea Nitrogen 9 7-18 MG/DL Creatinine 0.71 0.60-1.30 MG/DL Estimat Glomerular Filtration Rate 85 BUN/Creatinine Ratio 13 Glucose Level 117 H 70-105 MG/DL Calcium Level 9.1 8.5-10.1 MG/DL Corrected Calcium 9.4 8.5-10.1 MG/DL Total Bilirubin 0.4 0.1-1.0 MG/DL Aspartate Amino Transf (AST/SGOT) 12 5-34 U/L Alanine Aminotransferase (ALT/SGPT) 14 0-55 U/L Alkaline Phosphatase 55 40-136 U/L Total Protein 7.1 6.4-8.2 GM/DL Albumin 3.6 3.2-4.5 GM/DL My Orders Orders - ELYSSA AHN MD Fecal Occult Bedside (07/02/21 07:22) Cbc With Automated Diff (07/02/21 07:22) Comprehensive Metabolic Panel (07/02/21 07:22) Protime With Inr (07/02/21 07:22) Partial Thromboplastin Time (07/02/21 07:22) Vital Signs/I&O 07/02/21 06:55 Temp 36.4 Pulse 95 Resp 16 B/P (MAP) 154/91 (112) Pulse Ox 95 O2 Delivery Room Air Blood Pressure Mean: 112 Progress Progress Note : Time: 08:17 Progress Note Discussed with Dr. Araujo at 808, the patient's primary care physician. She recommends holding her Eliquis for 2 weeks. Protonix twice daily for 2 weeks, Carafate 4 times a day. She would like to see her in the office for follow-up next week. She would also like me to start her on Flagyl 500 mg 3 times daily for 5 days. I have counseled Ms. Williamson on the precautions for stopping her Eliquis, the risk of clotting and stroke. I have advised her to keep the eye on her heart rate and if she has any issues to come back to the emergency room. I have also counseled her on feelings of dizziness or lightheadedness when she stands up, low blood pressure, Profuse amounts of bleeding. Her hemoglobin is stable at 13.6. Her abdominal exam is soft and benign. She is not tachycardic or hypotensive. She has no clinical or objective findings to warrant further studies from the emergency department at this time. She verbalizes understanding, is a little anxious/ apprehensive. She states she would be agreeable to whoever is on-call for GI/general surgery follow-up. It is Dr. Lu today. Her son is comfortable with the plan of care. All questions are sought and answered. Departure Impression Primary Impression: GI bleed Qualified Codes: K92.2 - Gastrointestinal hemorrhage, unspecified Disposition: 01 HOME, SELF-CARE Condition: Stable Departure-Patient Inst. Decision time for Depature: 08:19 Referrals: DANIS ARAUJO MD (PCP/Family) Primary Care Physician NICANOR LU DO Patient Instructions: Gastrointestinal Bleeding Add. Discharge Instructions: Stop your omeprazole. Start Protonix 40 mg twice a day. Carafate [address] ARAUJO would like you to hold your Eliquis dosing for the next 2 weeks. We are starting you on Flagyl 500 mg 3 times a day for the next 5 days. She would like to see you in the office early next week for follow-up and repeat hemoglobin level. I have given you contact information for Dr. Lu, the surgeon on-call for follow-up for colonoscopy. Come back to the emergency department if you have any worse, heavier bleeding, feel lightheaded or dizzy, have low blood pressure or any other emergent concerning symptoms at all. Scripts Sucralfate (Carafate) 1 Gm Tablet 1 GM PO QID, #60 TAB Prov: ELYSSA AHN MD 07/02/21 Metronidazole (Metronidazole) 500 Mg Tablet 500 MG PO TID for 5 Days, #15 TAB Prov: ELYSSA AHN MD 07/02/21 Pantoprazole Sodium (Protonix) 40 Mg Granpkt. 40 MG PO BID, #30 TAB Prov: ELYSSA AHN MD 07/02/21 ELYSSA AHN MD Jul 02, 2021 07:22
[2021-07-02 07:39] LABS: BASOPHILS # (AUTO) 0.1 10^3/uL (0.0-0.1); BASOPHILS % (AUTO) 1 % (0-10); EOSINOPHILS # (AUTO) 0.2 10^3/uL (0.0-0.3); EOSINOPHILS % (AUTO) 2 % (0-10); HEMATOCRIT 41 % (35-52); HEMOGLOBIN 13.6 g/dL (11.5-16.0); LYMPHOCYTES # (AUTO) 2.1 10^3/uL (1.0-4.0); LYMPHOCYTES % (AUTO) 22 % (12-44); MEAN CORPUSCULAR HEMOGLOBIN 32 pg (25-34); MEAN CORPUSCULAR HGB CONC 33 g/dL (32-36); MEAN CORPUSCULAR VOLUME 96 fL (80-99); MONOCYTES # (AUTO) 1.1 10^3/uL (0.0-1.0); MONOCYTES % (AUTO) 11 % (0-12); NEUTROPHILS # (AUTO) 6.2 10^3/uL (1.8-7.8); NEUTROPHILS % (AUTO) 64 % (42-75); PLATELET COUNT 371 10^3/uL (130-400); WHITE BLOOD COUNT 9.6 10^3/uL (4.3-11.0)
[2021-07-02 07:43] LABS: ALBUMIN 3.6 GM/DL (3.2-4.5); POTASSIUM 3.9 MMOL/L (3.6-5.0)
[2021-07-02 07:44] LABS: CALCIUM 9.1 MG/DL (8.5-10.1)
[2021-07-02 07:45] LABS: TOTAL PROTEIN 7.1 GM/DL (6.4-8.2)
[2021-07-02 07:47] LABS: BILIRUBIN,TOTAL 0.4 MG/DL (0.1-1.0)
[2021-07-02 07:49] LABS: CREATININE SERUM 0.71 MG/DL (0.60-1.30)
[2021-07-02 07:55] LABS: INR 1.1 (0.8-1.4); PROTHROMBIN TIME PATIENT 14.8 SEC (12.2-14.7)
[2021-07-02] MEDS ORDERED: METR-145 PO (08:22)
[2021-07-02] MEDS ORDERED: SUCR1TAB36 PO (08:22)
[2021-07-02] MEDS ORDERED: PANT40SU PO (08:22)
== END 2021-07-02 08:25 | disposition home or self-care (01) ==
LOC: EDUNIT# 06:46 → ER 06:49
DX: K92.2 Gastrointestinal hemorrhage, unspecified (principal); J44.9 Chronic obstructive pulmonary disease, unspecified; I10 Essential (primary) hypertension; I48.91 Unspecified atrial fibrillation; Z87.891 Personal history of nicotine dependence; Z79.01 Long term (current) use of anticoagulants
CPT/HCPCS: 36415; 80053; 82274; 85025; 85610; 85730

== ENCOUNTER 2021-07-08 05:37 | Outpatient (CLI) | payer MEDICARE ==
[~2021-07-08] VITALS: Ht 154.9 cm; Wt 78.5 kg
[~2021-07-08 05:37] MED LIST changes: +METR-145 PO; +PANT40SU PO; +SUCR1TAB36 PO
[2021-07-08] MEDS ORDERED: LEVO50CA4 PO (12:15)
[2021-07-08] MEDS ORDERED: VITAMIN D SC (12:16)
[2021-07-08] MEDS ORDERED: LORA10TA7 PO (12:16)
== END 2021-07-08 14:17 | disposition home or self-care (01) ==
LOC: PREOP 05:37
PROVIDERS: ATTEND Surgery
DX: Z01.818 Encounter for other preprocedural examination (principal)

== ENCOUNTER → 2021-07-10 | Day surgery (SDC) | payer MEDICARE ==
[~2021-07-10] VITALS: Ht 156 cm; Wt 79.5 kg
[~2021-07-10] MED LIST changes: +ATROPINE INJ 0.4 MG/ML SDV IV ONE; +LACTATED RINGERS 1,000 ML IV ONE; +LACTATED RINGERS 1,000 ML IV STA; +LEVO50CA4 PO; +LORA10TA7 PO; +NITR100C PO; +VITAMIN D SC; +proPOfol 200 MG/20 ML (DIPRIVAN) VIAL IV ONE
[2021-07-10 07:24] VITALS: BP 135/79
--- NOTE | 2021-07-10 07:37 | Progress Note-Pre Operative ---
Pre-Operative Progress Note H&P Reviewed The H&P was reviewed, patient examined and no changes noted. Date Seen by Provider: Jul 10, 2021 Time Seen by Provider: 07:30 Date H&P Reviewed: Jul 10, 2021 Time H&P Reviewed: 07:30 Pre-Operative Diagnosis: hematochezia, hx diverticulitis NICANOR LU DO Jul 10, 2021 07:37
[2021-07-10 08:20] VITALS: BP 139/77
[2021-07-10 08:24] VITALS: BP 139/77
--- NOTE | 2021-07-10 08:28 | Progress Note-Post Operative ---
Post-Operative Progess Note Surgeon (s)/Physician Assistant Certified (s) Surgeon NICANOR LU DO Physician Assistant Certified: NA Pre-Operative Diagnosis hematochezia, hx diverticulitis Post-Operative Diagnosis DIVERTICULOSIS, COLON POLYPS Procedure & Operative Findings Date of Procedure 07/10/21 Procedure Performed/Findings COLONOSCOPY C HOT BX POLYPECTOMY X 7 AND SNARE POLYPECTOMY X 1 Anesthesia Type PER PUBLIC SPEAKER Estimated Blood Loss Estimated blood loss (mL): NONE Specimens/Packing Specimens Removed COLON POLYPS NICANOR LU DO Jul 10, 2021 08:28
--- NOTE | 2021-07-10 08:29 | Discharge Inst-Simple/Standard ---
Discharge Inst-Standard Patient Instructions/Follow Up Plan of Care/Instructions/FU: TABITHA 2 WEEKS HOLD JUSTA 5 DAYS. Activity as Tolerated: Yes Discharge Diet: Regular Diet (HIGH FIBER) NICANOR LU DO Jul 10, 2021 08:29
[2021-07-10 08:55] VITALS: BP 145/84
--- NOTE | 2021-07-10 13:45 | OPERATIVE REPORT ---
DATE OF SERVICE: 07/10/2021 PREOPERATIVE DIAGNOSES: Hematochezia, history of diverticulitis. POSTOPERATIVE DIAGNOSES: Diverticulosis, colon polyps. PROCEDURES PERFORMED: Colonoscopy with hot biopsy polypectomy x7 and snare polypectomy x1. SURGEON: Eliseo Dee DO. ANESTHESIA: Per RESEARCH GROUP DIRECTOR. ESTIMATED BLOOD LOSS: None. COMPLICATIONS: None. INDICATIONS FOR PROCEDURE: The patient is an 81-year-old female, who presented with hematochezia. She has a history of diverticulitis. She understands the risks and benefits of procedure and wished to proceed. Consent was signed in the chart. DESCRIPTION OF PROCEDURE: The patient was taken to the endoscopy suite and placed in a left lateral recumbent position. Timeout was performed. Digital rectal exam was performed noting hemorrhoids. No other palpable abnormalities. No polyps, masses or ulcerations. Scope was inserted in the rectum and advanced all the way to cecum with minimal difficulty. Prep was adequate. Scope was slowly retracted back in the cecum, there were two polyps, which hot biopsy polypectomy was performed. Scope was then continuously and slowly retracted back in the ascending colon, there were three polyps, which hot biopsy polypectomy was performed on these. Scope was then continuously and slowly retracted back. No polyps, masses or ulcerations within the transverse colon. In the descending colon, another small polyp was present, which hot biopsy polypectomy was performed. A moderate amount of diverticulosis present. In the sigmoid colon, another polyp was present, which hot biopsy polypectomy was performed. Another polyp that was larger was present about 1 cm in size, which snare polypectomy was performed. This was approximately at 25 cm. The scope was then slowly retracted back to obtain specimen. Once obtained, the scope was reinserted in the rectum and advanced all the way to the area of the snare polypectomy and scope was then continuously and slowly retracted back in the rectum, where it was also retroflexed noting no other pathology except for the hemorrhoidal disease. Scope was returned to its normal position, slowly withdrawn until completely removed. The patient tolerated the procedure well without any complications. She was taken to recovery room in stable condition. RECOMMENDATIONS: The patient will follow up in office in two weeks to discuss pathology results. If she continues to have bleeding, would reevaluate. We will repeat colonoscopy depending on pathology if benefits outweigh the risks. Job ID: [id number] DocumentID: [id number] Dictated Date: 07/10/2021 11:38:57 Scarf And Anneal Operator Date: 07/10/2021 13:43:35 Dictated By: DO ALVIN ARGUETA
--- NOTE | 2021-07-15 08:25 | Anesthesia-General Post-Op ---
MAC Significant Intra-Op Events Notes late entry from 07-10-21 at 0830 Patient Condition Mental Status/LOC: Same as Preop Cardiovascular: Satisfactory Nausea/Vomiting: Absent Respiratory: Satisfactory Pain: Controlled Complications: Absent Post Op Complications Complications None Follow Up Care/Instructions Patient Instructions None needed. Anesthesiology Discharge Order Discharge Order Patient is doing well, no complaints, stable vital signs, no apparent adverse anesthesia problems. No complications reported per nursing. MINE PIPER CRNA Jul 15, 2021 08:25
== END ==
LOC: ENDO 06:51
PROVIDERS: ATTEND Surgery
DX: D12.0 Benign neoplasm of cecum (principal); D12.2 Benign neoplasm of ascending colon; K63.5 Polyp of colon; K51.40 Inflammatory polyps of colon without complications; D12.5 Benign neoplasm of sigmoid colon; K57.31 Diverticulosis of large intestine without perforation or abscess with bleeding; K21.9 Gastro-esophageal reflux disease without esophagitis; E78.00 Pure hypercholesterolemia, unspecified; J44.9 Chronic obstructive pulmonary disease, unspecified; E03.9 Hypothyroidism, unspecified; I48.91 Unspecified atrial fibrillation; I10 Essential (primary) hypertension; Z79.890 Hormone replacement therapy; Z79.899 Other long term (current) drug therapy; Z79.01 Long term (current) use of anticoagulants; Z87.891 Personal history of nicotine dependence; Z90.710 Acquired absence of both cervix and uterus; Z80.9 Family history of malignant neoplasm, unspecified
CPT/HCPCS: 88305

== ENCOUNTER 2021-07-13 20:05 | Emergency (ER) | payer MEDICARE ==
[~2021-07-13] VITALS: Ht 154.9 cm; Wt 77.1 kg
[~2021-07-13 20:05] MED LIST changes: -ATROPINE INJ 0.4 MG/ML SDV IV ONE; -LACTATED RINGERS 1,000 ML IV ONE; -LACTATED RINGERS 1,000 ML IV STA; -NITR100C PO; -proPOfol 200 MG/20 ML (DIPRIVAN) VIAL IV ONE
--- NOTE | 2021-07-13 20:50 | ED General ---
General Chief Complaint: Cardiac/General Problems Stated Complaint: BP TO HIGH History of Present Illness Date Seen by Provider: Jul 13, 2021 Time Seen by Provider: 20:25 Initial Comments 81-year-old male presents for not feeling well. She states throughout the day her blood pressure has been elevated for her. She has noted some shortness of air which is chronic with her COPD and is not worse than baseline. She had a colonoscopy on 07 July and has had no GI bleeding since then. She has been off her Eliquis since July 02 plan. She is to resume the Eliquis on July 18. She has taken her normal blood pressure medications as prescribed (losartan and diltiazem). Timing/Duration: 12 Hours Severity: Mild Associated Systoms: No Chest Pain, No Cough, No Diaphoresis, No Fever/Chills, No Headaches, No Loss of Appetite; Malaise; No Nausea/Vomiting; Shortness of Air (chronic, hx of COPD); No Syncope, No Weakness Allergies and Home Medications Allergies Coded Allergies: Penicillins (Verified Allergy, Unknown, 07/02/21) amoxicillin (Unverified Allergy, Unknown, RASH, 07/31/14) Patient Home Medication List Home Medication List Reviewed: Yes Albuterol Sulfate (Albuterol Sulfate) 2.5 Mg/3 Ml Vial.neb, 2.5 MG INH Q4H PRN for WHEEZING Prescribed by: JUSTICE SCHULTZ on 05/20/21 1230 Albuterol Sulfate (Albuterol Sulfate) 2.5 Mg/3 Ml Vial.neb, 2.5 MG INH Q4H PRN for WHEEZING Prescribed by: JEN CAVAZOS on 05/27/21 1332 Apixaban (Eliquis) 5 Mg Tablet, 5 MG PO BID, (Reported) Entered as Reported by: SHARLENE LACEY on 03/26/20 1044 Diltiazem HCl (Cardizem Cd) 300 Mg Cap.er.24h, 300 MG PO DAILY, (Reported) Entered as Reported by: SHARLENE LACEY on 03/26/20 1044 Krill Oil (Krill Oil) 500 Mg Capsule, 500 MG PO DAILY, (Reported) Entered as Reported by: SHARLENE LACEY on 03/26/20 1044 Levothyroxine Sodium (Levothyroxine) 50 Mcg Capsule, 50 MCG PO DAILY, (Reported) Entered as Reported by: ALVINA MANDUJANO on 07/08/211214 Loratadine (Loratadine) 10 Mg Tablet, 10 MG PO DAILY, (Reported) Entered as Reported by: ALVINA MANDUJANO on 07/08/211215 Losartan Potassium (Losartan Potassium) 25 Mg Tablet, 25 MG PO DAILY, (Reported) Entered as Reported by: SHARLENE LACEY on 03/26/20 105 Multivitamin (Multivitamin) 1 Each Tablet, 1 EACH PO DAILY, (Reported) Entered as Reported by: SHARLENE LACEY on 03/26/20 105 Pantoprazole Sodium (Protonix) 40 Mg Granpkt.dr, 40 MG PO BID Prescribed by: ELYSSA AHN on 07/02/21821 Sucralfate (Carafate) 1 Gm Tablet, 1 GM PO QID Prescribed by: ELYSSA AHN on 07/02/21821 [Vitamin D] , SC UD, (Reported) Entered as Reported by: ALVINA MANDUJANO on 07/08/211215 Discontinued Medications Cefuroxime Axetil (Cefuroxime) 250 Mg Tablet, 250 MG PO BID Discontinued Reason: No Longer Taking Prescribed by: JUSTICE SCHULTZ on 05/20/21 1230 Metoprolol Succinate (Metoprolol Succinate) 50 Mg Tab.er.24h, 50 MG PO DAILY, (Reported) Discontinued Reason: No Longer Taking Entered as Reported by: SHARLENE LACEY on 03/26/20 105 Metronidazole (Metronidazole) 500 Mg Tablet, 500 MG PO TID Discontinued Reason: No Longer Taking Prescribed by: ELYSSA AHN on 07/02/21821 Omeprazole (Omeprazole) 20 Mg Capsule.dr, 20 MG PO DAILY, (Reported) Discontinued Reason: No Longer Taking Entered as Reported by: SHARLENE LACEY on 03/26/20 1044 Potassium Chloride (Potassium Chloride) 10 Meq Tab.er.prt, 10 MEQ PO UD, (Reported) Discontinued Reason: No Longer Taking Entered as Reported by: SHARLENE LACEY on 03/26/20 1044 Prednisone (Prednisone) 20 Mg Tab, 20 MG PO DAILY Discontinued Reason: No Longer Taking Prescribed by: JUSTICE SCHULTZ on 05/20/21 1230 Prednisone (Prednisone) 20 Mg Tab, 20 MG PO DAILY Discontinued Reason: No Longer Taking Prescribed by: JEN CAVAZOS on 05/27/21 1332 [Vitamin D] Unknown Strength , Unknown Dose PO DAILY, (Reported) Discontinued Reason: No Longer Taking Entered as Reported by: SHARLENE LACEY on 03/26/20 1056 Review of Systems Review of Systems Constitutional: no symptoms reported, see HPI EENTM: see HPI, no symptoms reported Respiratory: see HPI; No cough; dyspnea on exertion (normal baseline for her) Cardiovascular: no symptoms reported, see HPI; No chest pain; other (hx of afib) Gastrointestinal: no symptoms reported, see HPI Genitourinary: no symptoms reported, see HPI All Other Systems Reviewed Negative Unless Noted: Yes Past Lqsxnsi-Dpktec-Nwecfk Hx Immunizations Up To Date First/Initial COVID19 Vaccinat: JULY 2020 Second COVID19 Vaccination Andrey: JULY 2020 Third COVID19 Vaccination Date: MARCH 2021 Seasonal Allergies Seasonal Allergies: No Past Medical History Surgeries: Yes (THROAT, THYROID SURG) Hysterectomy, Thyroidectomy Respiratory: Yes COPD Cardiac: Yes (A-FIB) Atrial Fibrillation, Hypertension Neurological: No Female Reproductive Disorders: Denies Sexually Transmitted Disease: No HIV/AIDS: No Gastrointestinal: Yes (DIVERTICULITIS, FREQ LOOSE STOOLS) Diverticulosis Musculoskeletal: No Endocrine: No HEENT: No Cancer: No Psychosocial: No Integumentary: Yes Psoriasis Blood Disorders: No Family Medical History Reviewed Nursing Family Hx Physical Exam Vital Signs Vital Signs - First Documented 07/13/21 20:23 Temp 36.1 Pulse 96 Resp 22 B/P (MAP) 140/102 (115) Pulse Ox 97 O2 Delivery Room Air Capillary Refill : Height, Weight, BMI Height: 5'1.00" Weight: 168lbs. 0.0oz. [id number]; 32.66 BMI Method:Stated General Appearance: No Apparent Distress, WD/WN HEENT: PERRL/EOMI, TMs Normal, Normal ENT Inspection, Pharynx Normal, Moist Mucous Membranes Neck: Full Range of Motion, Normal Inspection, Non Tender, Supple Respiratory: Chest Non Tender, Lungs Clear, Normal Breath Sounds Cardiovascular: Regular Rate, Rhythm, No JVD, No Murmur, Normal Peripheral Pulses Gastrointestinal: Normal Bowel Sounds, Non Tender, Soft Extremity: Normal Capillary Refill, Normal Inspection, Normal Range of Motion, Pedal Edema (1+) Neurologic/Psychiatric: Alert, Oriented x3, No Motor/Sensory Deficits, Normal Mood/Affect Skin: Normal Color, Warm/Dry Progress/Results/Core Measures Suspected Sepsis SIRS Temperature: Pulse: Respiratory Rate: Laboratory Tests 07/13/21 20:55: White Blood Count 7.6 Blood Pressure / Mean: Laboratory Tests 07/13/21 20:55: Creatinine 0.76, INR Comment 1.0, Platelet Count 346, Total Bilirubin 0.2 Results/Orders Lab Results Laboratory Tests Test 07/13/21 20:55 07/13/21 21:00 Range/Units White Blood Count 7.6 4.3-11.0 10^3/uL Red Blood Count 4.43 3.80-5.11 10^6/uL Hemoglobin 13.8 11.5-16.0 g/dL Hematocrit 43 35-52 % Mean Corpuscular Volume 96 80-99 fL Mean Corpuscular Hemoglobin 31 25-34 pg Mean Corpuscular Hemoglobin Concent 32 32-36 g/dL Red Cell Distribution Width 13.5 10.0-14.5 % Platelet Count 346 130-400 10^3/uL Mean Platelet Volume 9.7 9.0-12.2 fL Immature Granulocyte % (Auto) 0 % Neutrophils (%) (Auto) 56 42-75 % Lymphocytes (%) (Auto) 31 12-44 % Monocytes (%) (Auto) 9 0-12 % Eosinophils (%) (Auto) 3 0-10 % Basophils (%) (Auto) 1 0-10 % Neutrophils # (Auto) 4.3 1.8-7.8 10^3/uL Lymphocytes # (Auto) 2.3 1.0-4.0 10^3/uL Monocytes # (Auto) 0.7 0.0-1.0 10^3/uL Eosinophils # (Auto) 0.2 0.0-0.3 10^3/uL Basophils # (Auto) 0.1 0.0-0.1 10^3/uL Immature Granulocyte # (Auto) 0.0 0.0-0.1 10^3/uL Prothrombin Time 13.8 12.2-14.7 SEC INR Comment 1.0 0.8-1.4 Activated Partial Thromboplast Time 27 24-35 SEC D-Dimer 1.12 H 0.00-0.49 UG/ML Sodium Level 141 135-145 MMOL/L Potassium Level 3.5 L 3.6-5.0 MMOL/L Chloride Level 107 98-107 MMOL/L Carbon Dioxide Level 18 L 21-32 MMOL/L Anion Gap 16 H 5-14 MMOL/L Blood Urea Nitrogen 9 7-18 MG/DL Creatinine 0.76 0.60-1.30 MG/DL Estimat Glomerular Filtration Rate 79 BUN/Creatinine Ratio 12 Glucose Level 177 H 70-105 MG/DL Calcium Level 8.8 8.5-10.1 MG/DL Corrected Calcium 9.2 8.5-10.1 MG/DL Total Bilirubin 0.2 0.1-1.0 MG/DL Aspartate Amino Transf (AST/SGOT) 35 H 5-34 U/L Alanine Aminotransferase (ALT/SGPT) 36 0-55 U/L Alkaline Phosphatase 43 40-136 U/L Troponin I < 0.028 <0.028 NG/ML Total Protein 7.5 6.4-8.2 GM/DL Albumin 3.5 3.2-4.5 GM/DL Urine Color YELLOW Urine Clarity CLEAR Urine pH 6.5 5-9 Urine Specific [place] 1.020 1.016-1.022 Urine Protein TRACE H NEGATIVE Urine Glucose (UA) NEGATIVE NEGATIVE Urine Ketones NEGATIVE NEGATIVE Urine Nitrite NEGATIVE NEGATIVE Urine Bilirubin NEGATIVE NEGATIVE Urine Urobilinogen 0.2 < = 1.0 MG/DL Urine Leukocyte Esterase NEGATIVE NEGATIVE Urine RBC (Auto) TRACE-I H NEGATIVE Urine RBC 5-10 H /HPF Urine WBC 5-10 H /HPF Urine Squamous Epithelial Cells 10-25 H /HPF Urine Crystals NONE /LPF Urine Bacteria MODERATE H /HPF Urine Casts PRESENT /LPF Urine Hyaline Casts 2-5 H /LPF Urine Mucus LARGE H /LPF Urine Culture Indicated NO My Orders Orders - ALESIA MONTGOMERY Cbc With Automated Diff (07/13/21 20:37) Comprehensive Metabolic Panel (07/13/21 20:37) Fibrin Degradation Products (07/13/21 20:37) Protime With Inr (07/13/21 20:37) Partial Thromboplastin Time (07/13/21 20:37) Ua Culture If Indicated (07/13/21 20:37) Troponin I [place] (07/13/21 20:37) Ekg Tracing (07/13/21 20:37) Chest 1 View, Ap/Pa Only (07/13/21 20:37) Ct Angio Chest W (07/13/21 21:45) Ed Iv/Invasive Line Start (07/13/21 21:45) Ns Iv 1000 Ml (Sodium Chloride 0.9%) (07/13/21 21:45) Iohexol Injection (Omnipaque 350 Mg/Ml 1 (07/13/21 22:00) Received Contrast (Hold Metformin- Contr (07/13/21 22:00) Ns (Ivpb) (Sodium Chloride 0.9% Ivpb Bag (07/13/21 22:00) Medications Given in ED Current Medications Medications Dose Ordered Sig/Shaila Route Start Time Stop Time Status Last Admin Dose Admin Iohexol 100 ml ONCE ONCE IV 07/13/21 22:00 07/13/21 22:01 DC 07/13/21 22:07 75 ML Sodium Chloride 100 ml ONCE ONCE IV 07/13/21 22:00 07/13/21 22:01 DC 07/13/21 22:07 80 ML Vital Signs/I&O 07/13/21 20:23 Temp 36.1 Pulse 96 Resp 22 B/P (MAP) 140/102 (115) Pulse Ox 97 O2 Delivery Room Air Capillary Refill : Progress Note : Time: 20:25 Progress Note Patient seen and evaluated, will obtain chest x-ray, EKG and labs will monitor blood pressure as it is 150/90, without treatment. 2120 patient reports symptoms are improving. Blood pressure has been labile but decreased from admission time. D-dimer slightly elevated, will do CT angio. 2215 CT angio negative for PE. Discussed with benita Burroughs to resume taking Eliquis. Discharge instructions and return precautions reviewed with the patient and her son. All questions answered. ECG Initial ECG Impression Date: Jul 13, 2021 Initial ECG Impression Time: 20:44 Initial ECG Rate: 79 Initial ECG Rhythm: Normal Sinus Initial ECG Intervals: Normal Initial ECG Intervals [place] 180, QRSD 76, QT 479, QTc 550. [place]- 9, QRS -23, T 16. Initial ECG Impression: Normal Initial ECG Comparisson: Unchanged Diagnostic Imaging Diagonstic Imaging: Xray Plain Films/CT/US/NM/MRI: chest Comments NAME: SANDRA VÁZQUEZ [facility] REC#: [id number] PT STATUS: REG ER : 1940 PHYSICIAN: ALESIA MONTGOMERY ADMIT DATE: 07/13/21/ER Signed Date of Exam:07/13/21 CHEST 1 VIEW, AP/PA ONLY EXAMINATION: Chest 1 view. HISTORY: SOA COMPARISON: None available. FINDINGS: Heart size and pulmonary vasculature are normal. The lungs are clear without consolidation, pleural effusion or pneumothorax. The osseous structures are intact. IMPRESSION: No acute radiographic abnormality in the chest. Dictated by: Dictated on workstation # [id number] Dict: 07/13/212123 Trans: 07/13/212125 [facility] [id number] Interpreted by: ASHLEY ALLEN DO Electronically signed by: ASHLEY ALLEN DO 07/13/212125 Reviewed: Reviewed by Me Diagonstic Imaging: CT Plain Films/CT/US/NM/MRI: chest Comments NAME: SANDRA VÁZQUEZ [facility] REC#: [id number] PT STATUS: REG ER : 1940 PHYSICIAN: ALESIA MONTGOMERY ADMIT DATE: 07/13/21/ER Signed Date of Exam:07/13/21 CT ANGIO CHEST W PROCEDURE: CT angiography of the chest with contrast. TECHNIQUE: Multiple contiguous axial images were obtained through the chest after uneventful bolus administration of intravenous contrast. 3D reconstructed CTA MIP acquisitions were also performed. Auto Exposure Controls were utilized during the CT exam to meet ALARA standards for radiation dose reduction. INDICATION: Chest pain, hypertension The lungs are clear. There are no effusions or pneumothoraces. There is no hilar or mediastinal lymphadenopathy. There is calcific atherosclerosis of aorta but no aneurysm. There are no pulmonary emboli. There is no evidence of right ventricular strain. There is a small sliding hiatal hernia. IMPRESSION: Small sliding hiatal hernia. Mild aortic atherosclerosis. No acute abnormalities in the chest. No evidence for pulmonary embolism. Dictated by: Dictated on workstation # [id number] Dict: 07/13/212214 Trans: 07/13/212216 TC [id number] Interpreted by: CHIRAG ALLEN MD Electronically signed by: CHIRAG ALLEN MD 02/13/22 2217 Reviewed: Reviewed by Me Departure Impression Primary Impression: Hypertension Qualified Codes: I10 - Essential (primary) hypertension Additional Impression: UTI (urinary tract infection) Qualified Codes: N30.01 - Acute cystitis with hematuria Disposition: HOME, SELF-CARE Condition: Improved Departure-Patient Inst. Decision time for Depature: 22:20 Referrals: DANIS WINTER MD (PCP/Family) Primary Care Physician Patient Instructions: High Blood Pressure (DC), Urinary Tract Infection, Adult (DC) Add. Discharge Instructions: Continue home medications as prescribed. Follow-up with Dr. Winter if symptoms are not improving or worsen. Take antibiotics as prescribed for urinary tract infection. Increase water intake, 16 ounces every 2 hours while awake. Resume Eliquis tomorrow. Return to the emergency department for new, urgent healthcare needs. All discharge instructions reviewed with patient and/or family. Voiced understanding. Scripts Nitrofurantoin Macrocrystal (Nitrofurantoin) 100 Mg Capsule 100 MG PO BID, #8 CAP 0 Refills Prov: ALESIA MONTGOMERY 07/13/21 Copy Copies To 1: DANIS WINTER MD, AMY ARNP Jul 13, 2021 20:50
[2021-07-13 21:09] LABS: BASOPHILS # (AUTO) 0.1 10^3/uL (0.0-0.1); BASOPHILS % (AUTO) 1 % (0-10); EOSINOPHILS # (AUTO) 0.2 10^3/uL (0.0-0.3); EOSINOPHILS % (AUTO) 3 % (0-10); HEMATOCRIT 43 % (35-52); HEMOGLOBIN 13.8 g/dL (11.5-16.0); LYMPHOCYTES # (AUTO) 2.3 10^3/uL (1.0-4.0); LYMPHOCYTES % (AUTO) 31 % (12-44); MEAN CORPUSCULAR HEMOGLOBIN 31 pg (25-34); MEAN CORPUSCULAR HGB CONC 32 g/dL (32-36); MEAN CORPUSCULAR VOLUME 96 fL (80-99); MEAN PLATELET VOLUME 9.7 fL (9.0-12.2); MONOCYTES # (AUTO) 0.7 10^3/uL (0.0-1.0); MONOCYTES % (AUTO) 9 % (0-12); NEUTROPHILS # (AUTO) 4.3 10^3/uL (1.8-7.8); NEUTROPHILS % (AUTO) 56 % (42-75); PLATELET COUNT 346 10^3/uL (130-400); WHITE BLOOD COUNT 7.6 10^3/uL (4.3-11.0)
[2021-07-13 21:12] LABS: BILIRUBIN,URINE NEGATIVE (NEGATIVE); CLARITY,URINE CLEAR; COLOR,URINE YELLOW; GLUCOSE, URINE (UA) NEGATIVE (NEGATIVE); KETONES,URINE NEGATIVE (NEGATIVE); LEUKOCYTE ESTERASE ,URINE NEGATIVE (NEGATIVE); NITRITE,URINE NEGATIVE (NEGATIVE); PH,URINE 6.5 (5-9); PROTEIN,URINE TRACE (NEGATIVE)
[2021-07-13 21:26] LABS: BACTERIA,URINE MODERATE /HPF
--- NOTE | 2021-07-13 21:26 | Diagnostic Imaging Report ---
EXAMINATION: Chest 1 view. HISTORY: SOA COMPARISON: None available. FINDINGS: Heart size and pulmonary vasculature are normal. The lungs are clear without consolidation, pleural effusion or pneumothorax. The osseous structures are intact. IMPRESSION: No acute radiographic abnormality in the chest. Dictated by: Dictated on workstation # [id number]
[2021-07-13 21:28] LABS: FIBRIN DEGRADATION PRODUCTS 1.12 UG/ML (0.00-0.49); PROTHROMBIN TIME PATIENT 13.8 SEC (12.2-14.7)
[2021-07-13 21:32] LABS: ALANINE AMINOTRANSFERASE 36 U/L (0-55); ALBUMIN 3.5 GM/DL (3.2-4.5); ALKALINE PHOSPHATASE 43 U/L (40-136); BILIRUBIN,TOTAL 0.2 MG/DL (0.1-1.0); BUN/CREATININE RATIO 12; CALCIUM 8.8 MG/DL (8.5-10.1); CARBON DIOXIDE 18 MMOL/L (21-32); CHLORIDE 107 MMOL/L (98-107); CREATININE SERUM 0.76 MG/DL (0.60-1.30); GFR ESTIMATED 79; GLUCOSE 177 MG/DL (70-105); POTASSIUM 3.5 MMOL/L (3.6-5.0); SODIUM 141 MMOL/L (135-145); TOTAL PROTEIN 7.5 GM/DL (6.4-8.2)
[2021-07-13] MEDS ORDERED: NS IV 1000 ML 1,000 ML IV SCH (21:45)
[2021-07-13] MEDS ORDERED: HOLD METFORMIN - RECEIVED CONTRAST 20 ML VIAL IV SCH (22:00)
[2021-07-13] MEDS ORDERED: NS 100 ML (IVPB) BAG IV ONE (22:00)
[2021-07-13] MEDS ORDERED: IOHEXOL 350 MG/ML 100 ML (OMNIPAQUE 350) VIAL IV ONE (22:00)
--- NOTE | 2021-07-13 22:18 | Diagnostic Imaging Report ---
PROCEDURE: CT angiography of the chest with contrast. TECHNIQUE: Multiple contiguous axial images were obtained through the chest after uneventful bolus administration of intravenous contrast. 3D reconstructed CTA MIP acquisitions were also performed. Auto Exposure Controls were utilized during the CT exam to meet ALARA standards for radiation dose reduction. INDICATION: Chest pain, hypertension The lungs are clear. There are no effusions or pneumothoraces. There is no hilar or mediastinal lymphadenopathy. There is calcific atherosclerosis of aorta but no aneurysm. There are no pulmonary emboli. There is no evidence of right ventricular strain. There is a small sliding hiatal hernia. IMPRESSION: Small sliding hiatal hernia. Mild aortic atherosclerosis. No acute abnormalities in the chest. No evidence for pulmonary embolism. Dictated by: Dictated on workstation # [id number]
[2021-07-13] MEDS ORDERED: NITR100C PO (22:29)
[2021-07-13] MEDS ORDERED: RX-NITROFURANTOIN 100 MG (MACROBID) CAP PPK#2 PO STA (22:30)
[2021-07-13 22:48] VITALS: BP 159/83
== END 2021-07-13 22:53 | disposition home or self-care (01) ==
LOC: ER 20:05
DX: I10 Essential (primary) hypertension (principal); N39.0 Urinary tract infection, site not specified; J44.9 Chronic obstructive pulmonary disease, unspecified; I48.91 Unspecified atrial fibrillation; Z79.01 Long term (current) use of anticoagulants
CPT/HCPCS: 36415; 71045; 71275; 80053; 81000; 84484; 85025; 85379; 85610; 85730; 87088; 93005

== ENCOUNTER → 2021-09-17 | Outpatient (CLI) | payer MEDICARE ==
[~2021-09-17] MED LIST changes: +NITR100C PO
--- NOTE | 2021-09-17 15:06 | Diagnostic Imaging Report ---
PROCEDURE: CT chest without contrast. TECHNIQUE: Multiple contiguous axial images were obtained through the chest without the use of intravenous contrast. Auto Exposure Controls were utilized during the CT exam to meet ALARA standards for radiation dose reduction. DATE: September 17, 2021. COMPARISON: CT chest July 13, 2021. CT chest June 16, 2021. INDICATION: 81-year-old female, shortness of breath. PROCEDURE: Axial noncontrasted CT images of the chest. Noncontrasted limits the evaluation of the mediastinum and vascular structures. FINDINGS: There is a 4 mm right lower lobe pulmonary nodule on axial image 65 which is unchanged. There is a semisolid 4 mm right lower lobe pulmonary nodule on axial image 60 which does appear unchanged since June 16, 2021. There is a 3 mm calcified right upper lobe granuloma and subjacent 2 mm right upper lobe pulmonary nodule. There is mild atelectasis and/or scarring in the lingula. The right upper lobe granuloma and 2 mm pulmonary nodule are unchanged. There is no identified new or enlarging pulmonary nodule. There is no lung mass. There is no otherwise noted focal airspace consolidation. There is no pneumothorax. There is no pleural effusion. The central airways are patent. The heart is not enlarged. There is no pericardial effusion. There are coronary artery calcifications and additional areas of atherosclerotic disease. There is no pericardial effusion. There is no identified abnormally enlarged mediastinal or axillary lymph node meeting CT size criteria for adenopathy. There is a low-attenuation left thyroid nodule measuring 13 mm in size. There is a low-attenuation left renal lesion, incompletely imaged, measuring at least 4.2 cm in size with internal attenuation consistent with a benign cyst. There does appear to be a retroaortic left renal vein. There are multilevel degenerative changes of the spine. There is no acute bony abnormality. IMPRESSION: 1. Multiple subcentimeter pulmonary nodules without interval change since June 16, 2021. 2. The previously noted airspace consolidation in the left lower lobe on the CT chest of June 16, 2021 has resolved and is consistent with prior infectious or inflammatory etiology or prior atelectasis. 3. No acute cardiopulmonary abnormality. Dictated by: Dictated on workstation # [id number]
== END ==
LOC: RAD 13:45
PROVIDERS: ATTEND Nurse Practitioner Family
DX: R91.8 Other nonspecific abnormal finding of lung field (principal)
CPT/HCPCS: 71250

== ENCOUNTER → 2021-11-14 | Outpatient (CLI) | payer MEDICARE | LOC: CARD 11:30 | PROVIDERS: ATTEND Nurse Practitioner Family | DX: R06.02 Shortness of breath (principal) | CPT/HCPCS: 93306 ==

== ENCOUNTER 2021-11-24 01:48 | Emergency (ER) | payer MEDICARE ==
[~2021-11-24] VITALS: Ht 154 cm; Wt 81.6 kg
--- NOTE | 2021-11-24 02:40 | ED Cardiac General ---
History of Present Illness General Chief Complaint: Cardiac/General Problems Stated Complaint: A-FIB Nursing Triage Note: Pt ambulatory to ED c/o heart racing onset midnight, hx of a fib. Pt states she was sleeping and woke up feeling like she was running a race. C/o heart pounding and felt SOB, most of which has resolved. Denies any other symptoms, denies any recent illness. Pt took 3 ASA performance tester Source: patient, family Exam Limitations: no limitations History of Present Illness Date Seen by Provider: Nov 24, 2021 Time Seen by Provider: 02:20 Initial Comments Here with report of acute onset of fast heart rate that she noted in the 130s and 140s at home. Onset about midnight and continued. She did take 3 baby aspirin at that time. She is on Eliquis as well as diltiazem and losartan. Concerned because her blood pressure was up in the 150s systolic range and up to 110 diastolic. Heart rate and blood pressure have improved now. Denies chest pain during event. Denies any significant breathing problems. Denies respiratory or constitutional symptoms otherwise. Does have history of paroxysmal atrial fibrillation. Timing/Duration: 1-3 hours Severity: mild Location: central Activities at Onset: none Prior CP/Workup: cardiac cath, stress test Modifying Factors: improves with rest NTG SL [employer]NAGER: No ASA po [employer]GER: Yes Associated Systoms: No Chest Pain, No Cough, No Fever/Chills, No Nausea/Vomiting, No Shortness of Air, No Weakness Allergies and Home Medications Allergies Coded Allergies: Penicillins (Verified Allergy, Unknown, 07/02/21) amoxicillin (Unverified Allergy, Unknown, RASH, 07/31/14) Patient Home Medication List Home Medication List Reviewed: Yes Albuterol Sulfate (Albuterol Sulfate) 2.5 Mg/3 Ml Vial.neb, 2.5 MG INH Q4H PRN for WHEEZING Prescribed by: JUSTICE SCHULTZ on 05/20/21 1230 Albuterol Sulfate (Albuterol Sulfate) 2.5 Mg/3 Ml Vial.neb, 2.5 MG INH Q4H PRN for WHEEZING Prescribed by: JEN CAVAZOS on 05/27/21 1332 Apixaban (Eliquis) 5 Mg Tablet, 5 MG PO BID, (Reported) Entered as Reported by: SHARLENE LACEY on 03/26/20 1044 Diltiazem HCl (Cardizem Cd) 300 Mg Cap.er.24h, 300 MG PO DAILY, (Reported) Entered as Reported by: SHARLENE LACEY on 03/26/20 1044 Krill Oil (Krill Oil) 500 Mg Capsule, 500 MG PO DAILY, (Reported) Entered as Reported by: SHARLENE LACEY on 03/26/20 1044 Levothyroxine Sodium (Levothyroxine) 50 Mcg Capsule, 50 MCG PO DAILY, (Reported) Entered as Reported by: ALVINA MANDUJANO on 07/08/21 1215 Loratadine (Loratadine) 10 Mg Tablet, 10 MG PO DAILY, (Reported) Entered as Reported by: ALVINA MANDUJANO on 07/08/21 1216 Losartan Potassium (Losartan Potassium) 25 Mg Tablet, 25 MG PO DAILY, (Reported) Entered as Reported by: SHARLENE LACEY on 03/26/20 1056 Multivitamin (Multivitamin) 1 Each Tablet, 1 EACH PO DAILY, (Reported) Entered as Reported by: SHARLENE LACEY on 03/26/20 1056 Nitrofurantoin Macrocrystal (Nitrofurantoin) 100 Mg Capsule, 100 MG PO BID Prescribed by: ALESIA MONTGOMERY on 07/13/212228 Pantoprazole Sodium (Protonix) 40 Mg Granpkt.dr, 40 MG PO BID Prescribed by: ELYSSA AHN on 07/02/21821 Sucralfate (Carafate) 1 Gm Tablet, 1 GM PO QID Prescribed by: ELYSSA AHN on 07/02/21821 [Vitamin D] , SC UD, (Reported) Entered as Reported by: ALVINA MANDUJANO on 07/08/21 121 Review of Systems Review of Systems Constitutional: see HPI; No chills, No fever EENTM: No Nose Congestion, No Throat Pain Respiratory: Denies Cough, Denies Shortness of Air Cardiovascular: Denies Chest Pain; Edema, Palpitations Gastrointestinal: Denies Nausea, Denies Vomiting Genitourinary: No Symptoms Reported Musculoskeletal: no symptoms reported Skin: No lesions, No rash Psychiatric/Neurological: No Symptoms Reported All Other Systems Reviewed Negative Unless Noted: Yes Past Scolrqh-Hqubkt-Ojfwfg Hx Patient Social History Tobacco Use?: No Substance use?: No Alcohol Use?: No Immunizations Up To Date Influenza Vaccine Up-to-Date: Yes; Up-to-Date First/Initial COVID19 Vaccinat: JULY 2020 Second COVID19 Vaccination Andrey: JULY 2020 Third COVID19 Vaccination Date: MARCH 2021 COVID19 Vaccine Simulation Analyst: JOSHUA Seasonal Allergies Seasonal Allergies: No Past Medical History Surgery/Hospitalization HX: A FIB Surgeries: Yes (THROAT, THYROID SURG) Hysterectomy, Thyroidectomy Respiratory: Yes COPD Cardiac: Yes (A-FIB) Atrial Fibrillation, Hypertension Neurological: No Female Reproductive Disorders: Denies Sexually Transmitted Disease: No HIV/AIDS: No Gastrointestinal: Yes (DIVERTICULITIS, FREQ LOOSE STOOLS) Diverticulosis Musculoskeletal: No Endocrine: No HEENT: No Cancer: No Psychosocial: No Integumentary: Yes Psoriasis Blood Disorders: No Family Medical History Reviewed Nursing Family Hx No Pertinent Family Hx Physical Exam Vital Signs Vital Signs - First Documented 11/24/21 01:58 Temp 36.0 Pulse 86 Resp 20 B/P (MAP) 157/105 (122) Pulse Ox 99 O2 Delivery Room Air Capillary Refill : Less Than 3 Seconds Height, Weight, BMI Height: 5'1.00" Weight: 168lbs. 0.0oz. [id number]; 34.00 BMI Method:Stated General Appearance: No Apparent Distress, WD/WN HEENT: PERRL/EOMI, Pharynx Normal Neck: Non Tender, Supple Respiratory: Lungs Clear, Normal Breath Sounds Cardiovascular: Regular Rate, Rhythm, No Murmur Gastrointestinal: Non Tender, Soft Extremity: Normal Range of Motion, Non Tender Neurologic/Psychiatric: Alert, Oriented x3 Skin: Normal Color, Warm/Dry Progress/Results/Core Measures Results/Orders Lab Results Laboratory Tests Test 11/24/21 02:35 Range/Units White Blood Count 7.7 4.3-11.0 10^3/uL Red Blood Count 4.42 3.80-5.11 10^6/uL Hemoglobin 13.6 11.5-16.0 g/dL Hematocrit 42 35-52 % Mean Corpuscular Volume 94 80-99 fL Mean Corpuscular Hemoglobin 31 25-34 pg Mean Corpuscular Hemoglobin Concent 33 32-36 g/dL Red Cell Distribution Width 13.3 10.0-14.5 % Platelet Count 271 130-400 10^3/uL Mean Platelet Volume 9.3 9.0-12.2 fL Immature Granulocyte % (Auto) 0 % Neutrophils (%) (Auto) 58 42-75 % Lymphocytes (%) (Auto) 29 12-44 % Monocytes (%) (Auto) 10 0-12 % Eosinophils (%) (Auto) 2 0-10 % Basophils (%) (Auto) 0 0-10 % Neutrophils # (Auto) 4.5 1.8-7.8 10^3/uL Lymphocytes # (Auto) 2.2 1.0-4.0 10^3/uL Monocytes # (Auto) 0.8 0.0-1.0 10^3/uL Eosinophils # (Auto) 0.2 0.0-0.3 10^3/uL Basophils # (Auto) 0.0 0.0-0.1 10^3/uL Immature Granulocyte # (Auto) 0.0 0.0-0.1 10^3/uL Sodium Level 141 135-145 MMOL/L Potassium Level 3.9 3.6-5.0 MMOL/L Chloride Level 106 98-107 MMOL/L Carbon Dioxide Level 24 21-32 MMOL/L Anion Gap 11 5-14 MMOL/L Blood Urea Nitrogen 19 H 7-18 MG/DL Creatinine 0.82 0.60-1.30 MG/DL Estimat Glomerular Filtration Rate 72 BUN/Creatinine Ratio 23 Glucose Level 120 H 70-105 MG/DL Calcium Level 9.5 8.5-10.1 MG/DL Corrected Calcium 9.7 8.5-10.1 MG/DL Magnesium Level 2.1 1.6-2.4 MG/DL Total Bilirubin 0.2 0.1-1.0 MG/DL Aspartate Amino Transf (AST/SGOT) 14 5-34 U/L Alanine Aminotransferase (ALT/SGPT) 17 0-55 U/L Alkaline Phosphatase 48 40-136 U/L Troponin I < 0.028 <0.028 NG/ML Total Protein 7.3 6.4-8.2 GM/DL Albumin 3.8 3.2-4.5 GM/DL TSH [place] Testing 2.61 0.35-4.94 UIU/ML My Orders Orders - CHIRAG WILL MD Ekg Tracing (11/24/21 01:51) Ed Iv/Invasive Line Start (11/24/21 02:29) Cbc With Automated Diff (11/24/21 02:29) Comprehensive Metabolic Panel (11/24/21 02:29) Magnesium (11/24/21 02:29) Thyroid Analyzer (11/24/21 02:29) Troponin I [place] (11/24/21 02:29) Vital Signs/I&O 11/24/21 01:58 Temp 36.0 Pulse 86 Resp 20 B/P (MAP) 157/105 (122) Pulse Ox 99 O2 Delivery Room Air Blood Pressure Mean: 122 Progress Progress Note : Progress Note Seen and evaluated. IV, labs, EKG ordered. Patient has already taken aspirin. Heart rate normal and blood pressure in good range but 140s over 90s. We will check basic labs and monitor patient. 0332: Labs reviewed and no significant abnormalities. Patient has remained in sinus rhythm with rate between upper 50s and low 70s. Blood pressure 133/74. No chest pain or events. She has follow- up for consultation for watchman procedure for her atrial fibrillation in late November. She does follow with Dr Luo and can follow-up with him as well. Discharged home with return precautions. Patient and family verbalized understanding instructions and agreement with plan. Initial ECG Impression Date: Nov 24, 2021 Initial ECG Impression Time: 01:57 Initial ECG Rhythm: Normal Sinus Comment Sinus rhythm with normal axis. No evidence of ST elevation [place]. Similar but improved from 07/13/2021. Interpreted by me. Departure Impression Primary Impression: Paroxysmal atrial fibrillation Disposition: 01 HOME, SELF-CARE Condition: Improved Departure-Patient Inst. Decision time for Depature: 03:35 Referrals: DANIS WINTER MD (PCP/Family) Primary Care Physician Patient Instructions: Atrial Fibrillation (DC) Add. Discharge Instructions: All discharge instructions reviewed with patient and/or family. Voiced understanding. Continue home medications as prescribed. Follow-up with Dr Luo for recheck and further evaluation and keep scheduled appointments. Return for persistent palpitations, fast heart rate, chest pain, breathing problems, weakness, vomiting, dizziness or other concerns as needed. CHIRAG WILL MD Nov 24, 2021 02:39
[2021-11-24 02:59] LABS: BASOPHILS % (AUTO) 0 % (0-10); EOSINOPHILS # (AUTO) 0.2 10^3/uL (0.0-0.3); EOSINOPHILS % (AUTO) 2 % (0-10); HEMATOCRIT 42 % (35-52); HEMOGLOBIN 13.6 g/dL (11.5-16.0); LYMPHOCYTES # (AUTO) 2.2 10^3/uL (1.0-4.0); LYMPHOCYTES % (AUTO) 29 % (12-44); MEAN CORPUSCULAR HEMOGLOBIN 31 pg (25-34); MEAN CORPUSCULAR HGB CONC 33 g/dL (32-36); MEAN CORPUSCULAR VOLUME 94 fL (80-99); MEAN PLATELET VOLUME 9.3 fL (9.0-12.2); MONOCYTES # (AUTO) 0.8 10^3/uL (0.0-1.0); MONOCYTES % (AUTO) 10 % (0-12); NEUTROPHILS # (AUTO) 4.5 10^3/uL (1.8-7.8); NEUTROPHILS % (AUTO) 58 % (42-75); PLATELET COUNT 271 10^3/uL (130-400); WHITE BLOOD COUNT 7.7 10^3/uL (4.3-11.0)
[2021-11-24 03:00] LABS: ALBUMIN 3.8 GM/DL (3.2-4.5); CHLORIDE 106 MMOL/L (98-107); POTASSIUM 3.9 MMOL/L (3.6-5.0); SODIUM 141 MMOL/L (135-145)
[2021-11-24 03:02] LABS: CALCIUM 9.5 MG/DL (8.5-10.1)
[2021-11-24 03:03] LABS: GLUCOSE 120 MG/DL (70-105); TOTAL PROTEIN 7.3 GM/DL (6.4-8.2)
[2021-11-24 03:04] LABS: CARBON DIOXIDE 24 MMOL/L (21-32)
[2021-11-24 03:05] LABS: BILIRUBIN,TOTAL 0.2 MG/DL (0.1-1.0)
[2021-11-24 03:06] LABS: ALKALINE PHOSPHATASE 48 U/L (40-136); CREATININE SERUM 0.82 MG/DL (0.60-1.30); GFR ESTIMATED 72
[2021-11-24 03:07] LABS: BUN/CREATININE RATIO 23
[2021-11-24 03:09] LABS: ALANINE AMINOTRANSFERASE 17 U/L (0-55); MAGNESIUM 2.1 MG/DL (1.6-2.4)
[2021-11-24 03:29] LABS: TSH (THYROID ANALYZER) 2.61 UIU/ML (0.35-4.94)
[2021-11-24 03:40] VITALS: BP 133/74
== END 2021-11-24 03:40 | disposition home or self-care (01) ==
LOC: EDUNIT# 01:48 → ER 01:50
DX: I48.0 Paroxysmal atrial fibrillation (principal); I10 Essential (primary) hypertension; Z79.01 Long term (current) use of anticoagulants; Z79.899 Other long term (current) drug therapy
CPT/HCPCS: 36415; 80053; 83735; 84443; 84484; 85025; 93005

== ENCOUNTER → 2021-11-27 | Outpatient (CLI) | payer MEDICARE | LOC: CARD 10:00 | PROVIDERS: ATTEND Nurse Practitioner Family | DX: I48.0 Paroxysmal atrial fibrillation (principal) ==

== ENCOUNTER → 2022-03-11 | Outpatient (CLI) | payer MEDICARE ==
[~2022-03-11] MED LIST changes: +POTA-177 PO; -POTA10TA37 PO
--- NOTE | 2022-03-11 16:24 | Diagnostic Imaging Report ---
INDICATION: Routine screening. COMPARISON: 03/05/2021 and 03/24/2019. TECHNIQUE: 2D and 3D bilateral screening mammography was performed with CAD. FINDINGS: Scattered fibroglandular densities are identified bilaterally. The parenchymal pattern is stable. No mass or malignant-appearing microcalcifications are seen. The axillae are unremarkable. IMPRESSION: No mammographic features suspicious for malignancy are identified. ACR BI-RADS Category 1: Negative. Result letter will be mailed to the patient. Note: At least 10% of breast cancer is not imaged by mammography. Dictated by: Dictated on workstation # [id number]
== END ==
LOC: RAD 10:37
PROVIDERS: ATTEND Nurse Practitioner Family
DX: Z12.31 Encounter for screening mammogram for malignant neoplasm of breast (principal)
CPT/HCPCS: 77063; 77067

== ENCOUNTER 2022-03-14 19:44 | Emergency (ER) | payer MEDICARE ==
[~2022-03-14] VITALS: Ht 160 cm; Wt 83.0 kg
[2022-03-14] MEDS ORDERED: ASPIRIN 81 MG CHEW (CHILDREN'S ASA) PO ONE (20:00)
[2022-03-14 20:04] LABS: BASOPHILS % (AUTO) 0 % (0-10); EOSINOPHILS # (AUTO) 0.1 10^3/uL (0.0-0.3); EOSINOPHILS % (AUTO) 1 % (0-10); HEMATOCRIT 44 % (35-52); HEMOGLOBIN 14.8 g/dL (11.5-16.0); LYMPHOCYTES # (AUTO) 4.7 10^3/uL (1.0-4.0); LYMPHOCYTES % (AUTO) 36 % (12-44); MEAN CORPUSCULAR HEMOGLOBIN 31 pg (25-34); MEAN CORPUSCULAR HGB CONC 34 g/dL (32-36); MEAN CORPUSCULAR VOLUME 94 fL (80-99); MEAN PLATELET VOLUME 8.6 fL (9.0-12.2); MONOCYTES % (AUTO) 8 % (0-12); NEUTROPHILS # (AUTO) 7.3 10^3/uL (1.8-7.8); NEUTROPHILS % (AUTO) 55 % (42-75); PLATELET COUNT 257 10^3/uL (130-400); WHITE BLOOD COUNT 13.1 10^3/uL (4.3-11.0)
--- NOTE | 2022-03-14 20:19 | Diagnostic Imaging Report ---
EXAMINATION: Chest 1 view. HISTORY: Palpitations. COMPARISON: 07/13/2021. FINDINGS: The lungs are clear without edema or pneumonia. No pleural effusion or pneumothorax. Heart size is normal. IMPRESSION: Clear lungs. Dictated by: Dictated on workstation # [id number]
[2022-03-14 20:21] LABS: PROTHROMBIN TIME PATIENT 13.2 SEC (12.2-14.7)
[2022-03-14 20:35] LABS: ALANINE AMINOTRANSFERASE 27 U/L (0-55); ALBUMIN 4.1 GM/DL (3.2-4.5); ALKALINE PHOSPHATASE 40 U/L (40-136); BILIRUBIN,TOTAL 0.3 MG/DL (0.1-1.0); BUN/CREATININE RATIO 21; CALCIUM 9.5 MG/DL (8.5-10.1); CARBON DIOXIDE 22 MMOL/L (21-32); CHLORIDE 103 MMOL/L (98-107); CREATINE KINASE 21 U/L (29-168); CREATININE SERUM 0.97 MG/DL (0.60-1.30); GFR ESTIMATED 59; GLUCOSE 103 MG/DL (70-105); MAGNESIUM 2.1 MG/DL (1.6-2.4); POTASSIUM 3.9 MMOL/L (3.6-5.0); SODIUM 139 MMOL/L (135-145); TOTAL PROTEIN 7.6 GM/DL (6.4-8.2)
[2022-03-14 20:55] LABS: CREATINE KINASE MB 1.1 NG/ML (<6.6); TSH (THYROID ANALYZER) 1.94 UIU/ML (0.35-4.94)
--- NOTE | 2022-03-14 21:13 | ED Cardiac General ---
History of Present Illness General Chief Complaint: Cardiac/General Problems Stated Complaint: IRR HEART RATE Nursing Triage Note: PT BROUGHT TO ED FOR HTN AND FLUTTERING HEART THAT STARTED AROUND 1830. PT REPORTS HX OF A-FIB. PT BROUGHT TO ROOM 08 VIA WC. SON AT BEDSIDE. Allergies and Home Medications Allergies Coded Allergies: Penicillins (Verified Allergy, Unknown, 07/02/21) amoxicillin (Unverified Allergy, Unknown, RASH, 07/31/14) Patient Home Medication List Albuterol Sulfate (Albuterol Sulfate) 2.5 Mg/3 Ml Vial.neb, 2.5 MG INH Q4H PRN for WHEEZING Prescribed by: JUSTICE SCHULTZ on 05/20/21 1230 Albuterol Sulfate (Albuterol Sulfate) 2.5 Mg/3 Ml Vial.neb, 2.5 MG INH Q4H PRN for WHEEZING Prescribed by: JEN CAVAZOS on 05/27/21 1332 Apixaban (Eliquis) 5 Mg Tablet, 5 MG PO BID, (Reported) Entered as Reported by: SHARLENE LACEY on 03/26/20 1044 Diltiazem HCl (Cardizem Cd) 300 Mg Cap.er.24h, 300 MG PO DAILY, (Reported) Entered as Reported by: SHARLENE LACEY on 03/26/20 1044 Krill Oil (Krill Oil) 500 Mg Capsule, 500 MG PO DAILY, (Reported) Entered as Reported by: SHARLENE LACEY on 03/26/20 1044 Levothyroxine Sodium (Levothyroxine) 50 Mcg Capsule, 50 MCG PO DAILY, (Reported) Entered as Reported by: ALVINA MANDUJANO on 07/08/21 1215 Loratadine (Loratadine) 10 Mg Tablet, 10 MG PO DAILY, (Reported) Entered as Reported by: ALVINA MANDUJANO on 07/08/21 1216 Losartan Potassium (Losartan Potassium) 25 Mg Tablet, 25 MG PO DAILY, (Reported) Entered as Reported by: SHARLENE LACEY on 03/26/20 1056 Multivitamin (Multivitamin) 1 Each Tablet, 1 EACH PO DAILY, (Reported) Entered as Reported by: SHARLENE LACEY on 03/26/20 1056 Nitrofurantoin Macrocrystal (Nitrofurantoin) 100 Mg Capsule, 100 MG PO BID Prescribed by: ALESIA MONTGOMERY on 07/13/212228 Pantoprazole Sodium (Protonix) 40 Mg , 40 MG PO BID Prescribed by: ELYSSA AHN on 07/02/21821 Sucralfate (Carafate) 1 Gm Tablet, 1 GM PO QID Prescribed by: ELYSSA AHN on 07/02/21821 [Vitamin D] , SC UD, (Reported) Entered as Reported by: ALVINA MANDUJANO on 07/08/21 121 Past Kgrbumr-Infllj-Gzfvco Hx Patient Social History Tobacco Use?: No Smoking Status: Former Smoker Substance use?: No Alcohol Use?: No Pt feels they are or have been: No Immunizations Up To Date First/Initial COVID19 Vaccinat: JULY 2020 Second COVID19 Vaccination Andrey: JULY 2020 Third COVID19 Vaccination Date: MARCH 2021 COVID19 Vaccine Cleaner Window: Narrable Seasonal Allergies Seasonal Allergies: No Past Medical History Surgery/Hospitalization HX: MED. HX.-A FIB, COPD, AND HTN. SURG. HX- HYST., NODULE REMOVAL FROM THROAT. Surgeries: Yes (THROAT, THYROID SURG) Hysterectomy, Thyroidectomy Respiratory: Yes COPD Cardiac: Yes (A-FIB) Atrial Fibrillation, Hypertension Neurological: No Female Reproductive Disorders: Denies Sexually Transmitted Disease: No HIV/AIDS: No Gastrointestinal: Yes (DIVERTICULITIS, FREQ LOOSE STOOLS) Diverticulosis Musculoskeletal: No Endocrine: No HEENT: No Cancer: No Psychosocial: No Integumentary: Yes Psoriasis Blood Disorders: No Family Medical History No Pertinent Family Hx Physical Exam Vital Signs Vital Signs - First Documented 03/14/22 03/14/22 19:47 19:50 Temp 37.3 Pulse 82 Resp 20 B/P (MAP) 191/101 (131) Pulse Ox 98 O2 Delivery Room Air O2 Flow Rate 2.00 Capillary Refill : Less Than 3 Seconds Height, Weight, BMI Height: 5'1.00" Weight: 168lbs. 0.0oz. 76.053447sf; 32.00 BMI Method:Stated Progress/Results/Core Measures Results/Orders Lab Results Laboratory Tests Test 03/14/22 19:55 Range/Units White Blood Count 13.1 H 4.3-11.0 10^3/uL Red Blood Count 4.71 3.80-5.11 10^6/uL Hemoglobin 14.8 11.5-16.0 g/dL Hematocrit 44 35-52 % Mean Corpuscular Volume 94 80-99 fL Mean Corpuscular Hemoglobin 31 25-34 pg Mean Corpuscular Hemoglobin Concent 34 32-36 g/dL Red Cell Distribution Width 13.4 10.0-14.5 % Platelet Count 257 130-400 10^3/uL Mean Platelet Volume 8.6 L 9.0-12.2 fL Immature Granulocyte % (Auto) 0 % Neutrophils (%) (Auto) 55 42-75 % Lymphocytes (%) (Auto) 36 12-44 % Monocytes (%) (Auto) 8 0-12 % Eosinophils (%) (Auto) 1 0-10 % Basophils (%) (Auto) 0 0-10 % Neutrophils # (Auto) 7.3 1.8-7.8 10^3/uL Lymphocytes # (Auto) 4.7 H 1.0-4.0 10^3/uL Monocytes # (Auto) 1.0 0.0-1.0 10^3/uL Eosinophils # (Auto) 0.1 0.0-0.3 10^3/uL Basophils # (Auto) 0.0 0.0-0.1 10^3/uL Immature Granulocyte # (Auto) 0.1 0.0-0.1 10^3/uL Prothrombin Time 13.2 12.2-14.7 SEC INR Comment 1.0 0.8-1.4 Activated Partial Thromboplast Time 29 24-35 SEC Sodium Level 139 135-145 MMOL/L Potassium Level 3.9 3.6-5.0 MMOL/L Chloride Level 103 98-107 MMOL/L Carbon Dioxide Level 22 21-32 MMOL/L Anion Gap 14 5-14 MMOL/L Blood Urea Nitrogen 20 H 7-18 MG/DL Creatinine 0.97 0.60-1.30 MG/DL Estimat Glomerular Filtration Rate 59 BUN/Creatinine Ratio 21 Glucose Level 103 70-105 MG/DL Calcium Level 9.5 8.5-10.1 MG/DL Corrected Calcium 9.4 8.5-10.1 MG/DL Magnesium Level 2.1 1.6-2.4 MG/DL Total Bilirubin 0.3 0.1-1.0 MG/DL Aspartate Amino Transf (AST/SGOT) 17 5-34 U/L Alanine Aminotransferase (ALT/SGPT) 27 0-55 U/L Alkaline Phosphatase 40 40-136 U/L Total Creatine Kinase 21 L 29-168 U/L Creatine Kinase MB 1.1 <6.6 NG/ML Myoglobin 28.1 10.0-92.0 NG/ML Troponin I < 0.028 <0.028 NG/ML B-Type Natriuretic Peptide 73.3 <100.0 PG/ML Total Protein 7.6 6.4-8.2 GM/DL Albumin 4.1 3.2-4.5 GM/DL TSH [place] Testing 1.94 0.35-4.94 UIU/ML My Orders Orders - GUERLINE DUNBAR DO Ekg-Prn For Chest Pain Or Rhyt (03/14/22 19:47) Ed Iv/Invasive Line Start (03/14/22 19:49) Ekg Tracing (03/14/22 19:49) O2 (03/14/22 19:49) Monitor-Rhythm Ecg Trace Only (03/14/22 19:49) Bnp [place] (03/14/22 19:49) Cbc With Automated Diff (03/14/22 19:49) Comprehensive Metabolic Panel (03/14/22 19:49) Creatine Kinase (03/14/22 19:49) Creatine Kinase Mb (03/14/22 19:49) Magnesium (03/14/22 19:49) Protime With Inr (03/14/22 19:49) Partial Thromboplastin Time (03/14/22 19:49) Thyroid Analyzer (03/14/22 19:49) Myoglobin Serum (03/14/22 19:49) Troponin I [place] (03/14/22 19:49) Chest 1 View, Ap/Pa Only (03/14/22 19:49) Aspirin Chewable Tablet (Baby Aspirin Ch (03/14/22 20:00) Medications Given in ED Current Medications Medications Dose Ordered Sig/Shaila Route Start Time Stop Time Status Last Admin Dose Admin Aspirin 324 mg ONCE ONCE PO 03/14/22 20:00 03/14/22 20:01 DC 03/14/22 20:02 324 MG Vital Signs/I&O 03/14/22 03/14/22 19:47 19:50 Temp 37.3 Pulse 82 Resp 20 B/P (MAP) 191/101 (131) Pulse Ox 98 96 O2 Delivery Room Air Nasal Cannula O2 Flow Rate 2.00 Blood Pressure Mean: 131 Progress Progress Note : Progress Note SYMPTOMS RESOLVED SHORTLY AFTER ARRIVAL, AND PT IS HAVING MUCH FEWER PAC'S AND PVC'S HR IN 70'S BP DOWN TO 120'S SYSTOLIC Departure Impression Primary Impression: PAC (premature atrial contraction) Additional Impressions: PVC (premature ventricular contraction) HTN (hypertension) Disposition: 01 HOME, SELF-CARE Condition: Improved Departure-Patient Inst. Decision time for Depature: 21:10 Referrals: DANIS WINTER MD (PCP/Family) Primary Care Physician SANTY HILARIO MD FACP FACC CCDS Patient Instructions: Palpitations (DC), Ventricular Premature Beats Add. Discharge Instructions: HOME, REST CONTINUE YOUR REGULAR MEDICATIONS PRESCRIBED FOLLOW UP WITH DR. HILARIO THIS WEEK FOR FURTHER CARE RETURN TO ER IF SYMPTOMS WORSEN All discharge instructions reviewed with patient and/or family. Voiced understanding. GUERLINE DUNBAR DO Mar 14, 2022 21:13
[2022-03-14 21:21] VITALS: BP 126/78
== END 2022-03-14 21:21 | disposition home or self-care (01) ==
LOC: EDUNIT# 19:44 → ER 19:46
DX: I49.3 Ventricular premature depolarization (principal); I49.1 Atrial premature depolarization; I10 Essential (primary) hypertension; Z87.891 Personal history of nicotine dependence
CPT/HCPCS: 36415; 71045; 80053; 82550; 82553; 83735; 83874; 83880; 84443; 84484; 85025; 85610; 85730; 93005; 93041

== ENCOUNTER 2022-03-20 22:23 | Emergency (ER) | payer MEDICARE ==
--- NOTE | 2022-03-20 22:41 | ED Cardiac General ---
History of Present Illness General Chief Complaint: Cardiac/General Problems Stated Complaint: IRR HEART RATE Source: patient Exam Limitations: no limitations History of Present Illness Date Seen by Provider: Mar 20, 2022 Time Seen by Provider: 22:23 Initial Comments 81-year-old female presents to the emergency department today for irregular heartbeat. She states she feels like her heart is skipping beats. Is causing her to be dizzy and have some shortness of breath. This is showed a Wednesday. She was found to have "premature beats." She was placed on metoprolol 2 days ago by her primary doctor. Symptoms were improving but started again this evening. She denies any specific chest pain. No fevers chills cough. No abdominal pain or changes in bowel or bladder habits. She does have a history of atrial fibrillation, on Eliquis. Allergies and Home Medications Allergies Coded Allergies: Penicillins (Verified Allergy, Unknown, 07/02/21) amoxicillin (Unverified Allergy, Unknown, RASH, 07/31/14) Patient Home Medication List Home Medication List Reviewed: Yes Albuterol Sulfate (Albuterol Sulfate) 2.5 Mg/3 Ml Vial.neb, 2.5 MG INH Q4H PRN for WHEEZING Prescribed by: JUSTICE SCHULTZ on 05/20/21 1230 Albuterol Sulfate (Albuterol Sulfate) 2.5 Mg/3 Ml Vial.neb, 2.5 MG INH Q4H PRN for WHEEZING Prescribed by: JEN CAVAZOS on 05/27/21 1332 Apixaban (Eliquis) 5 Mg Tablet, 5 MG PO BID, (Reported) Entered as Reported by: SHARLENE LACEY on 03/26/20 1044 Diltiazem HCl (Cardizem Cd) 300 Mg Cap.er.24h, 300 MG PO DAILY, (Reported) Entered as Reported by: SHARLENE LACEY on 03/26/20 1044 Krill Oil (Krill Oil) 500 Mg Capsule, 500 MG PO DAILY, (Reported) Entered as Reported by: SHARLENE LACEY on 03/26/20 1044 Levothyroxine Sodium (Levothyroxine) 50 Mcg Capsule, 50 MCG PO DAILY, (Reported) Entered as Reported by: ALVINA MANDUJANO on 07/08/21 1215 Loratadine (Loratadine) 10 Mg Tablet, 10 MG PO DAILY, (Reported) Entered as Reported by: ALVINA MANDUJANO on 07/08/21 121 Losartan Potassium (Losartan Potassium) 25 Mg Tablet, 25 MG PO DAILY, (Reported) Entered as Reported by: SHARLENE LACEY on 03/26/20 105 Multivitamin (Multivitamin) 1 Each Tablet, 1 EACH PO DAILY, (Reported) Entered as Reported by: SHARLENE LACEY on 03/26/20 1056 Nitrofurantoin Macrocrystal (Nitrofurantoin) 100 Mg Capsule, 100 MG PO BID Prescribed by: ALESIA MONTGOMERY on 07/13/212228 Pantoprazole Sodium (Protonix) 40 Mg Granpkt.dr, 40 MG PO BID Prescribed by: ELYSSA AHN on 07/02/21821 Sucralfate (Carafate) 1 Gm Tablet, 1 GM PO QID Prescribed by: ELYSSA AHN on 07/02/21821 [Vitamin D] , SC UD, (Reported) Entered as Reported by: ALVINA MANDUJANO on 07/08/211215 Review of Systems Review of Systems Constitutional: no symptoms reported EENTM: No Symptoms Reported Respiratory: Shortness of Air Cardiovascular: Irregular Heart Rate, Lightheadedness Gastrointestinal: No Symptoms Reported Genitourinary: No Symptoms Reported Musculoskeletal: no symptoms reported Skin: no symptoms reported Psychiatric/Neurological: No Symptoms Reported Endocrine: No Symptoms Reported Hematologic/Lymphatic: No Symptoms Reported Past Sojiofa-Tbjkdu-Drcqkt Hx Patient Social History Tobacco Use?: No Use of E-Cig and/or Vaping dev: No Substance use?: No Alcohol Use?: No Immunizations Up To Date First/Initial COVID19 Vaccinat: JULY 2020 Second COVID19 Vaccination Andrey: JULY 2020 Third COVID19 Vaccination Date: MARCH 2021 Seasonal Allergies Seasonal Allergies: No Past Medical History Surgery/Hospitalization HX: MED. HX.-A FIB, COPD, AND HTN. SURG. HX- HYST., NODULE REMOVAL FROM THROAT. Surgeries: Yes (THROAT, THYROID SURG) Hysterectomy, Thyroidectomy Respiratory: Yes COPD Cardiac: Yes (A-FIB) Atrial Fibrillation, Hypertension Neurological: No Female Reproductive Disorders: Denies Sexually Transmitted Disease: No HIV/AIDS: No Gastrointestinal: Yes (DIVERTICULITIS, FREQ LOOSE STOOLS) Diverticulosis Musculoskeletal: No Endocrine: No HEENT: No Cancer: No Psychosocial: No Integumentary: Yes Psoriasis Blood Disorders: No Family Medical History Reviewed Nursing Family Hx No Pertinent Family Hx Physical Exam Vital Signs Vital Signs - First Documented 03/20/22 22:27 Temp 36.8 Pulse 73 Resp 24 B/P (MAP) 150/98 (115) Pulse Ox 96 O2 Delivery Room Air Capillary Refill : Height, Weight, BMI Height: 5'1.00" Weight: 168lbs. 0.0oz. 76.316053jx; 32.00 BMI Method:Stated General Appearance: No Apparent Distress, WD/WN HEENT: PERRL/EOMI, Normal ENT Inspection, Pharynx Normal Neck: Full Range of Motion, Normal Inspection, Non Tender, Supple Respiratory: Chest Non Tender, Lungs Clear, Normal Breath Sounds, No Accessory Muscle Use, No Respiratory Distress Cardiovascular: No Edema, No Gallop, No JVD, No Murmur, Normal Peripheral Pulses, Other (Irregular) Gastrointestinal: Normal Bowel Sounds, No Organomegaly, No Pulsatile Mass, Non Tender, Soft Neurologic/Psychiatric: Alert, Oriented x3, No Motor/Sensory Deficits Skin: Normal Color, Warm/Dry Lymphatic: No Adenopathy Progress/Results/Core Measures Results/Orders Lab Results Laboratory Tests Test 03/20/22 22:33 Range/Units White Blood Count 9.2 4.3-11.0 10^3/uL Red Blood Count 4.45 3.80-5.11 10^6/uL Hemoglobin 14.2 11.5-16.0 g/dL Hematocrit 42 35-52 % Mean Corpuscular Volume 94 80-99 fL Mean Corpuscular Hemoglobin 32 25-34 pg Mean Corpuscular Hemoglobin Concent 34 32-36 g/dL Red Cell Distribution Width 13.4 10.0-14.5 % Platelet Count 262 130-400 10^3/uL Mean Platelet Volume 8.7 L 9.0-12.2 fL Immature Granulocyte % (Auto) 0 % Neutrophils (%) (Auto) 56 42-75 % Lymphocytes (%) (Auto) 33 12-44 % Monocytes (%) (Auto) 9 0-12 % Eosinophils (%) (Auto) 1 0-10 % Basophils (%) (Auto) 0 0-10 % Neutrophils # (Auto) 5.2 1.8-7.8 10^3/uL Lymphocytes # (Auto) 3.1 1.0-4.0 10^3/uL Monocytes # (Auto) 0.8 0.0-1.0 10^3/uL Eosinophils # (Auto) 0.1 0.0-0.3 10^3/uL Basophils # (Auto) 0.0 0.0-0.1 10^3/uL Immature Granulocyte # (Auto) 0.0 0.0-0.1 10^3/uL Sodium Level 139 135-145 MMOL/L Potassium Level 4.0 3.6-5.0 MMOL/L Chloride Level 105 98-107 MMOL/L Carbon Dioxide Level 22 21-32 MMOL/L Anion Gap 12 5-14 MMOL/L Blood Urea Nitrogen 23 H 7-18 MG/DL Creatinine 1.07 0.60-1.30 MG/DL Estimat Glomerular Filtration Rate 52 BUN/Creatinine Ratio 21 Glucose Level 122 H 70-105 MG/DL Calcium Level 9.2 8.5-10.1 MG/DL Corrected Calcium 9.3 8.5-10.1 MG/DL Magnesium Level 2.2 1.6-2.4 MG/DL Total Bilirubin 0.2 0.1-1.0 MG/DL Aspartate Amino Transf (AST/SGOT) 16 5-34 U/L Alanine Aminotransferase (ALT/SGPT) 29 0-55 U/L Alkaline Phosphatase 49 40-136 U/L Troponin I < 0.028 <0.028 NG/ML Total Protein 7.4 6.4-8.2 GM/DL Albumin 3.9 3.2-4.5 GM/DL My Orders Orders - OFELIA HAND DO Ekg Tracing (03/20/22 22:30) Comprehensive Metabolic Panel (03/20/22 22:36) Magnesium (03/20/22 22:36) Cbc With Automated Diff (03/20/22 22:36) Troponin I [place] (03/20/22 22:36) Chest 1 View, Ap/Pa Only (03/20/22 22:36) Vital Signs/I&O 03/20/22 22:27 Temp 36.8 Pulse 73 Resp 24 B/P (MAP) 150/98 (115) Pulse Ox 96 O2 Delivery Room Air Comment Underlying sinus rhythm with frequent premature atrial and premature ventricular contractions. Rate is 81 bpm. Normal intervals. Left axis deviation. No ST or T wave abnormalities. No STEMI. Departure Communication (Admissions) Patient is mildly bradycardic, likely related to recent metoprolol. Her PVCs have resolved at present. Her symptoms have resolved. She feels back to normal. She never really had any chest pain. No indication this is from ACS. Chest x-ray is negative, no indication of infectious or lung process. Electrolytes are normal including magnesium and potassium, calcium. Discharged in stable condition with close follow-up. She is mildly bradycardic, presumably secondary to recent metoprolol use. I Dr. Barakat Santoyo her metoprolol for further control of her symptoms right now. Advise she follow-up with her capacitor tester for further evaluation. Impression Primary Impression: PVC (premature ventricular contraction) Disposition: 01 HOME, SELF-CARE Condition: Stable Departure-Patient Inst. Referrals: DANIS WINTER MD (PCP/Family) Primary Care Physician Patient Instructions: Ventricular Premature Beats Add. Discharge Instructions: Please continue to take metoprolol as previously prescribed. You will need to talk to Dr. Luo about this medicine is your heart rate is well. I do not have any reason to go up on this tonight however your heart is back in a normal rhythm at this time with no premature beats currently. Increase your fluids at home, rest. Your electrolytes are normal and you are not anemic. There is no indication that this is from a heart attack. Return to the emergency department for any severe concerns. Follow-up with Dr. Fuentes next week for further evaluation and treatment recommendations All discharge instructions reviewed with patient and/or family. Voiced understanding. OFELIA HAND DO Mar 20, 2022 22:41
[2022-03-20 22:43] LABS: BASOPHILS % (AUTO) 0 % (0-10); EOSINOPHILS # (AUTO) 0.1 10^3/uL (0.0-0.3); EOSINOPHILS % (AUTO) 1 % (0-10); HEMATOCRIT 42 % (35-52); HEMOGLOBIN 14.2 g/dL (11.5-16.0); LYMPHOCYTES # (AUTO) 3.1 10^3/uL (1.0-4.0); LYMPHOCYTES % (AUTO) 33 % (12-44); MEAN CORPUSCULAR HEMOGLOBIN 32 pg (25-34); MEAN CORPUSCULAR HGB CONC 34 g/dL (32-36); MEAN CORPUSCULAR VOLUME 94 fL (80-99); MEAN PLATELET VOLUME 8.7 fL (9.0-12.2); MONOCYTES # (AUTO) 0.8 10^3/uL (0.0-1.0); MONOCYTES % (AUTO) 9 % (0-12); NEUTROPHILS # (AUTO) 5.2 10^3/uL (1.8-7.8); NEUTROPHILS % (AUTO) 56 % (42-75); PLATELET COUNT 262 10^3/uL (130-400); WHITE BLOOD COUNT 9.2 10^3/uL (4.3-11.0)
[2022-03-20 22:59] LABS: ALBUMIN 3.9 GM/DL (3.2-4.5); CHLORIDE 105 MMOL/L (98-107); SODIUM 139 MMOL/L (135-145)
[2022-03-20 23:01] LABS: CALCIUM 9.2 MG/DL (8.5-10.1)
[2022-03-20 23:02] LABS: GLUCOSE 122 MG/DL (70-105); TOTAL PROTEIN 7.4 GM/DL (6.4-8.2)
[2022-03-20 23:03] LABS: CARBON DIOXIDE 22 MMOL/L (21-32)
[2022-03-20 23:04] LABS: BILIRUBIN,TOTAL 0.2 MG/DL (0.1-1.0)
[2022-03-20 23:05] LABS: ALKALINE PHOSPHATASE 49 U/L (40-136); CREATININE SERUM 1.07 MG/DL (0.60-1.30); GFR ESTIMATED 52
[2022-03-20 23:06] LABS: BUN/CREATININE RATIO 21
[2022-03-20 23:08] LABS: ALANINE AMINOTRANSFERASE 29 U/L (0-55); MAGNESIUM 2.2 MG/DL (1.6-2.4)
[2022-03-20 23:45] VITALS: BP 152/87
--- NOTE | 2022-03-21 07:33 | Diagnostic Imaging Report ---
Indication: Irregular heartbeat and dyspnea. Time of Exam: 11:18 PM Correlation is made with prior chest 03/14/2022. Findings: The heart size is normal. The pulmonary vascularity is unremarkable. The lungs are clear. No infiltrate, effusion or pneumothorax is detected. Impression: No acute cardiopulmonary process is detected. Dictated by: Dictated on workstation # [id number]
== END 2022-03-20 23:57 | disposition home or self-care (01) ==
LOC: EDUNIT# 22:23 → ER 22:25
DX: I49.3 Ventricular premature depolarization (principal); I48.91 Unspecified atrial fibrillation; Z79.01 Long term (current) use of anticoagulants
CPT/HCPCS: 36415; 71045; 80053; 83735; 84484; 85025; 93005

== ENCOUNTER → 2022-04-01 | Outpatient (CLI) | payer MEDICARE | LOC: CARD 08:34 | PROVIDERS: ATTEND Internal Medicine Cardiovascular Disease | DX: R00.2 Palpitations (principal) | CPT/HCPCS: 93225; 93226 ==

== ENCOUNTER 2022-04-20 18:26 | Emergency (ER) | payer MEDICARE ==
[~2022-04-20] VITALS: Ht 155 cm; Wt 85.3 kg
--- NOTE | 2022-04-20 18:44 | ED Respiratory ---
General Chief Complaint: Cardiac/General Problems Stated Complaint: AFIB Nursing Triage Note: PT TO RM 2 VIA WC W C/O SOA. PT BELIEVES SHE MAY BE IN AFIB, DENIES PAIN. A&OX4. Source: patient Exam Limitations: no limitations (BOSSMAN BERNAL APRN) History of Present Illness Date Seen by Provider: Apr 20, 2022 Time Seen by Provider: 18:25 Initial Comments Patient is a 82-year-old female who presents to the emergency department for evaluation of shortness of air that began acutely 2 to 3 hours prior to arrival. Patient denies any chest pain. Denies any exacerbating or alleviating symptoms. Patient states she did take a breathing treatment at home with no improvement in symptoms. She states she thinks she may be in A. fib but she has had issues with A. fib in the past. She is currently on Eliquis, Cardizem, and metoprolol. Denies any increased lower extremity edema. No diaphoresis. (BOSSMAN BERNAL APRN) Allergies and Home Medications Allergies Coded Allergies: Penicillins (Verified Allergy, Unknown, 07/02/21) amoxicillin (Unverified Allergy, Unknown, RASH, 07/31/14) Patient Home Medication List Home Medication List Reviewed: Yes (BOSSMAN BERNAL APRN) Albuterol Sulfate (Albuterol Sulfate) 2.5 Mg/3 Ml Vial.neb, 2.5 MG INH Q4H PRN for WHEEZING Prescribed by: JUSTICE SCHULTZ on 05/20/21 1230 Albuterol Sulfate (Albuterol Sulfate) 2.5 Mg/3 Ml Vial.neb, 2.5 MG INH Q4H PRN for WHEEZING Prescribed by: JEN CAVAZOS on 05/27/21 1332 Apixaban (Eliquis) 5 Mg Tablet, 5 MG PO BID, (Reported) Entered as Reported by: SHARLENE LACEY on 03/26/20 1044 Diltiazem HCl (Cardizem Cd) 300 Mg Cap.er.24h, 300 MG PO DAILY, (Reported) Entered as Reported by: SHARLENE LACEY on 03/26/20 1044 Krill Oil (Krill Oil) 500 Mg Capsule, 500 MG PO DAILY, (Reported) Entered as Reported by: SHARLENE LACEY on 03/26/20 1044 Levothyroxine Sodium (Levothyroxine) 50 Mcg Capsule, 50 MCG PO DAILY, (Reported) Entered as Reported by: ALVINA MANDUJANO on 07/08/211214 Loratadine (Loratadine) 10 Mg Tablet, 10 MG PO DAILY, (Reported) Entered as Reported by: ALVINA MANDUJANO on 07/08/211215 Losartan Potassium (Losartan Potassium) 25 Mg Tablet, 25 MG PO DAILY, (Reported) Entered as Reported by: SHARLENE LACEY on 03/26/20 105 Multivitamin (Multivitamin) 1 Each Tablet, 1 EACH PO DAILY, (Reported) Entered as Reported by: SHARLENE LACEY on 03/26/20 105 Nitrofurantoin Macrocrystal (Nitrofurantoin) 100 Mg Capsule, 100 MG PO BID Prescribed by: ALESIA MONTGOMERY on 07/13/212228 Pantoprazole Sodium (Protonix) 40 Mg Granpkt.dr, 40 MG PO BID Prescribed by: ELYSSA AHN on 07/02/21821 Sucralfate (Carafate) 1 Gm Tablet, 1 GM PO QID Prescribed by: ELYSSA AHN on 07/02/21821 [Vitamin D] , SC UD, (Reported) Entered as Reported by: ALVINA MANDUJANO on 07/08/211215 Review of Systems Review of Systems Constitutional: no symptoms reported EENTM: no symptoms reported Respiratory: see HPI, short of breath Cardiovascular: no symptoms reported Gastrointestinal: no symptoms reported Genitourinary: no symptoms reported (BOSSMAN BERNAL APRN) Past Frpkqss-Hitgiu-Fxhzbf Hx Patient Social History Tobacco Use?: No Smoking Status: Former Smoker Use of E-Cig and/or Vaping dev: No Substance use?: No Alcohol Use?: No (BOSSMAN BERNAL APRN) Immunizations Up To Date Influenza Vaccine Up-to-Date: Yes; Up-to-Date First/Initial COVID19 Vaccinat: JULY 2020 Second COVID19 Vaccination Andrey: JULY 2020 Third COVID19 Vaccination Date: MARCH 2021 COVID19 Vaccine Customer Service Dispatcher: JOSHUA (BOSSMAN BERNAL APRN) Seasonal Allergies Seasonal Allergies: No (BOSSMAN BERNAL APRN) Past Medical History Surgery/Hospitalization HX: MED. HX.-A FIB, COPD, AND HTN. SURG. HX- HYST., NODULE REMOVAL FROM THROAT. Surgeries: Yes (THROAT, THYROID SURG) Hysterectomy, Thyroidectomy Respiratory: Yes COPD Cardiac: Yes (A-FIB) Atrial Fibrillation, Hypertension Neurological: No Female Reproductive Disorders: Denies Sexually Transmitted Disease: No HIV/AIDS: No Gastrointestinal: Yes (DIVERTICULITIS, FREQ LOOSE STOOLS) Diverticulosis Musculoskeletal: No Endocrine: No HEENT: No Cancer: No Psychosocial: No Integumentary: Yes Psoriasis Blood Disorders: No (BOSSMAN BERNAL APRN) Family Medical History No Pertinent Family Hx (BOSSMAN BERNAL APRN) Physical Exam Vital Signs - First Documented 04/20/22 18:27 Temp 37.0 Pulse 74 Resp 28 B/P (MAP) 138/87 (104) Pulse Ox 96 O2 Delivery Room Air (BETTINA,GUERLINE K DO) Capillary Refill : Less Than 3 Seconds (BOSSMAN BERNAL APRN) Height: 5'1.00" Weight: 168lbs. 0.0oz. 76.893206yy; 35.00 BMI Method:Stated General Appearance: WD/WN, no apparent distress HEENT: PERRL/EOMI, normal ENT inspection, TMs normal, pharynx normal Neck: non-tender, full range of motion, supple, normal inspection Respiratory: chest non-tender, lungs clear, normal breath sounds, no respiratory distress Cardiovascular: regular rate, rhythm Gastrointestinal: normal bowel sounds, non tender, soft Extremities: non-tender Neurologic/Psychiatric: no motor/sensory deficits, alert, normal mood/affect, oriented x 3 Skin: normal color, warm/dry (BOSSMAN BERNAL APRN) Progress/Results/Core Measures Suspected Sepsis SIRS Temperature: Pulse: 74 Respiratory Rate: 28 Laboratory Tests 04/20/22 18:30: White Blood Count 11.2H Blood Pressure 138 /87 Mean: 104 Laboratory Tests 04/20/22 18:30: Creatinine 0.98, INR Comment 1.0, Platelet Count 317, Total Bilirubin 0.2 (BOSSMAN BERNAL APRN) Results/Orders Lab Results Laboratory Tests Test 04/20/22 18:30 04/20/22 19:25 Range/Units White Blood Count 11.2 H 4.3-11.0 10^3/uL Red Blood Count 4.70 3.80-5.11 10^6/uL Hemoglobin 14.8 11.5-16.0 g/dL Hematocrit 45 35-52 % Mean Corpuscular Volume 95 80-99 fL Mean Corpuscular Hemoglobin 32 25-34 pg Mean Corpuscular Hemoglobin Concent 33 32-36 g/dL Red Cell Distribution Width 13.9 10.0-14.5 % Platelet Count 317 130-400 10^3/uL Mean Platelet Volume 9.6 9.0-12.2 fL Immature Granulocyte % (Auto) 1 % Neutrophils (%) (Auto) 55 42-75 % Lymphocytes (%) (Auto) 35 12-44 % Monocytes (%) (Auto) 8 0-12 % Eosinophils (%) (Auto) 1 0-10 % Basophils (%) (Auto) 0 0-10 % Neutrophils # (Auto) 6.1 1.8-7.8 10^3/uL Lymphocytes # (Auto) 4.0 1.0-4.0 10^3/uL Monocytes # (Auto) 0.9 0.0-1.0 10^3/uL Eosinophils # (Auto) 0.1 0.0-0.3 10^3/uL Basophils # (Auto) 0.0 0.0-0.1 10^3/uL Immature Granulocyte # (Auto) 0.1 0.0-0.1 10^3/uL Prothrombin Time 13.1 12.2-14.7 SEC INR Comment 1.0 0.8-1.4 Activated Partial Thromboplast Time 26 24-35 SEC Sodium Level 140 135-145 MMOL/L Potassium Level 4.4 3.6-5.0 MMOL/L Chloride Level 104 98-107 MMOL/L Carbon Dioxide Level 20 L 21-32 MMOL/L Anion Gap 16 H 5-14 MMOL/L Blood Urea Nitrogen 16 7-18 MG/DL Creatinine 0.98 0.60-1.30 MG/DL Estimat Glomerular Filtration Rate 58 BUN/Creatinine Ratio 16 Glucose Level 152 H 70-105 MG/DL Calcium Level 9.5 8.5-10.1 MG/DL Corrected Calcium 9.5 8.5-10.1 MG/DL Magnesium Level 2.1 1.6-2.4 MG/DL Total Bilirubin 0.2 0.1-1.0 MG/DL Aspartate Amino Transf (AST/SGOT) 25 5-34 U/L Alanine Aminotransferase (ALT/SGPT) 23 0-55 U/L Alkaline Phosphatase 47 40-136 U/L Troponin I < 0.028 <0.028 NG/ML B-Type Natriuretic Peptide 79.5 <100.0 PG/ML Total Protein 8.2 6.4-8.2 GM/DL Albumin 4.0 3.2-4.5 GM/DL Influenza Type A (RT-PCR) Not Detected Not Detecte Influenza Type B (RT-PCR) Not Detected Not Detecte SARS-CoV-2 RNA (RT-PCR) Not Detected Not Detecte (GUERLINE DUNBAR DO) My Orders Orders - GUERLINE DUNBAR DO Ekg Tracing (04/20/22 18:27) (GUERLINE DUNBAR DO) Medications Given in ED Current Medications Medications Dose Ordered Sig/Shaila Route Start Time Stop Time Status Last Admin Dose Admin Albuterol/ Ipratropium 3 ml ONCE ONCE INH 04/20/22 19:45 04/20/22 19:46 DC 04/20/22 20:17 3 ML Iohexol 100 ml ONCE ONCE IV 04/20/22 20:00 04/20/22 20:01 DC 04/20/22 20:11 85 ML Sodium Chloride 100 ml ONCE ONCE IV 04/20/22 20:00 04/20/22 20:01 DC 04/20/22 20:11 70 ML (GUERLINE DUNBAR DO) Vital Signs/I&O 04/20/22 04/20/22 04/20/22 18:27 20:15 20:58 Temp 37.0 Pulse 74 79 Resp 28 B/P (MAP) 138/87 (104) 134/77 Pulse Ox 96 95 97 O2 Delivery Room Air Room Air Room Air (GUERLINE DUNBAR DO) Vital Signs/I&O Capillary Refill : Less Than 3 Seconds (BOSSMAN BERNAL APRN) Blood Pressure Mean: 104 Progress Note : Progress Note Patient is nontoxic and well-hydrated on exam. No adventitious lung sounds or increased work of breathing noted. Patient's oxygen saturations are 99 to 100% on room air. Heart rate is not markedly elevated. Patient does appear somewhat anxious. Laboratory evaluation is largely unremarkable. Troponin is negative. BNP is not elevated. Chest x-ray with polymorphic PVCs but there is no acute ischemic change. Chest x-ray is acutely negative. Patient was given a breathing treatment that she states may have helped a little. She was also given an oral dose of Ativan with significant improvement in symptoms. Given her distant symptomology despite an otherwise negative work-up, CT of the chest was obtained. No PE or right heart strain noted. Given improvement after the Ativan and lack of other etiology found on extensive work-up, anxiety appears to be at least part of etiology of patient's symptoms. She will be discharged home with recommendations for supportive care and close follow-up with PCP/cardiology. Return precautions for urgent symptomology discussed. Patient and son verbalized understanding. (BOSSMAN BERNAL APRN) ECG EKG : EKG Time: 18:33 Rate: 95 Rhythm: Normal Sinus ECG Impression: Nonspecific Changes Comment Polymorphic PVCs noted (BOSSMAN BERNAL APRN) Departure Impression Primary Impression: Dyspnea Qualified Codes: R06.00 - Dyspnea, unspecified Additional Impression: Tightness in chest Disposition: 01 HOME, SELF-CARE Condition: Stable Departure-Patient Inst. Decision time for Depature: 20:45 (BOSSMAN BERNAL APRN) Referrals: DANIS WINTER MD (PCP/Family) Primary Care Physician Patient Instructions: Shortness of Breath, Adult ED ATTENDING PHYSICIAN NOTE: I WAS PHYSICALLY PRESENT ER PHYSICIAN, BUT I WAS NOT INVOLVED IN ANY DECISION MAKING OR ANY CARE OF THIS PATIENT, AND I AM NOT COLLABORATING PHYSICIAN. (GUERLINE DUNBAR DO) BOSSMAN BERNAL APRN Apr 20, 2022 18:44 GUERLINE DUNBAR DO Apr 20, 2022 22:31
[2022-04-20 19:02] LABS: BASOPHILS % (AUTO) 0 % (0-10); EOSINOPHILS # (AUTO) 0.1 10^3/uL (0.0-0.3); EOSINOPHILS % (AUTO) 1 % (0-10); HEMATOCRIT 45 % (35-52); HEMOGLOBIN 14.8 g/dL (11.5-16.0); LYMPHOCYTES % (AUTO) 35 % (12-44); MEAN CORPUSCULAR HEMOGLOBIN 32 pg (25-34); MEAN CORPUSCULAR HGB CONC 33 g/dL (32-36); MEAN CORPUSCULAR VOLUME 95 fL (80-99); MEAN PLATELET VOLUME 9.6 fL (9.0-12.2); MONOCYTES # (AUTO) 0.9 10^3/uL (0.0-1.0); MONOCYTES % (AUTO) 8 % (0-12); NEUTROPHILS # (AUTO) 6.1 10^3/uL (1.8-7.8); NEUTROPHILS % (AUTO) 55 % (42-75); PLATELET COUNT 317 10^3/uL (130-400); WHITE BLOOD COUNT 11.2 10^3/uL (4.3-11.0)
--- NOTE | 2022-04-20 19:03 | Diagnostic Imaging Report ---
Indication: Shortness of breath Portable chest 6:47 PM Heart size and pulmonary vascularity are normal. Lungs are clear. There are no effusions or pneumothoraces. IMPRESSION: No acute abnormalities in the chest Dictated by: Dictated on workstation # [id number]
[2022-04-20 19:07] LABS: BILIRUBIN,TOTAL 0.2 MG/DL (0.1-1.0); CALCIUM 9.5 MG/DL (8.5-10.1); CREATININE SERUM 0.98 MG/DL (0.60-1.30); MAGNESIUM 2.1 MG/DL (1.6-2.4); POTASSIUM 4.4 MMOL/L (3.6-5.0); TOTAL PROTEIN 8.2 GM/DL (6.4-8.2)
[2022-04-20 19:39] LABS: PROTHROMBIN TIME PATIENT 13.1 SEC (12.2-14.7)
[2022-04-20] MEDS ORDERED: LORazepam 0.5 MG (ATIVAN) TABLET PO STA (19:43)
[2022-04-20] MEDS ORDERED: RT-ALBUTEROL/IPRATROPIUM 3 ML (DUONEB) VIAL INH ONE (19:45)
[2022-04-20] MEDS ORDERED: IOHEXOL 350 MG/ML 100 ML (OMNIPAQUE 350) VIAL IV ONE (20:00)
[2022-04-20] MEDS ORDERED: NS 100 ML (IVPB) BAG IV ONE (20:00)
--- NOTE | 2022-04-20 20:33 | Diagnostic Imaging Report ---
PROCEDURE: CT angiography of the chest with contrast. TECHNIQUE: Multiple contiguous axial images were obtained through the chest after uneventful bolus administration of intravenous contrast. 3D reconstructed CTA MIP acquisitions were also performed. Auto Exposure Controls were utilized during the CT exam to meet ALARA standards for radiation dose reduction. INDICATION: Acute shortness of breath The lungs are clear. There is a hiatal hernia. There is no effusion or pneumothorax. There is calcific atherosclerosis of the aorta but no aneurysm. There are no pulmonary emboli. There is no right ventricular strain. IMPRESSION: Hiatal hernia. CTA chest otherwise unremarkable. Dictated by: Dictated on workstation # [id number]
[2022-04-20 20:58] VITALS: BP 134/77
== END 2022-04-20 20:58 | disposition home or self-care (01) ==
LOC: ER 18:26 → EDUNIT# 18:26 → ER 20:58
DX: R06.00 Dyspnea, unspecified (principal); R07.89 Other chest pain; I48.91 Unspecified atrial fibrillation; Z87.891 Personal history of nicotine dependence; Z79.01 Long term (current) use of anticoagulants; Z79.899 Other long term (current) drug therapy; Z20.822 Contact with and (suspected) exposure to COVID-19
CPT/HCPCS: 36415; 71045; 71275; 80053; 83735; 83880; 84484; 85025; 85610; 85730; 87636; 93005; 93041

== ENCOUNTER 2022-05-12 10:00 | Day surgery (SDC) | payer MEDICARE ==
[~2022-05-12] VITALS: Ht 156 cm; Wt 84.8 kg
[2022-05-12 08:21] VITALS: BP 146/92
[2022-05-12 08:39] LABS: HEMATOCRIT 42 % (35-52); HEMOGLOBIN 13.7 g/dL (11.5-16.0); MEAN CORPUSCULAR HEMOGLOBIN 32 pg (25-34); MEAN CORPUSCULAR HGB CONC 33 g/dL (32-36); MEAN CORPUSCULAR VOLUME 96 fL (80-99); MEAN PLATELET VOLUME 8.8 fL (9.0-12.2); PLATELET COUNT 268 10^3/uL (130-400); WHITE BLOOD COUNT 8.9 10^3/uL (4.3-11.0)
[2022-05-12 08:48] LABS: INR 0.9 (0.8-1.4); PROTHROMBIN TIME PATIENT 12.8 SEC (12.2-14.7)
[2022-05-12 08:57] LABS: ALBUMIN 3.8 GM/DL (3.2-4.5); BILIRUBIN,TOTAL 0.4 MG/DL (0.1-1.0); CALCIUM 9.2 MG/DL (8.5-10.1); CREATININE SERUM 0.84 MG/DL (0.60-1.30); POTASSIUM 3.5 MMOL/L (3.6-5.0); TOTAL PROTEIN 7.3 GM/DL (6.4-8.2)
[~2022-05-12 10:00] MED LIST changes: +ACET325T38 PO; +ALBU0.63 IH; +CALC500T7 PO; +ERGO1250 PO; +FURO20TA4 PO; +HEParin (CATH LAB) 2,000 ML IV ONE; +KRIL1CAP19 PO; +LIDOCAINE 1% INJ 30 ML (XYLOCAINE) VIAL ONE; +NS IV 1000 ML 1,000 ML IV ONE; +NS IV 1000 ML 1,000 ML ONE; +PANT40TA52 PO
[2022-05-12] MEDS ORDERED: MIDAZOLAM 5 MG/5 ML (VERSED) VIAL ONE (11:12)
[2022-05-12] MEDS ORDERED: fentaNYL INJ 100 MCG/2 ML AMP ONE (11:12)
[2022-05-12] MEDS ORDERED: LIDOCAINE 1% INJ 30 ML (XYLOCAINE) VIAL ONE (11:38)
[2022-05-12] MEDS ORDERED: NALOXONE 0.4 MG/ML 1 ML (NARCAN) VIAL ONE (11:48)
[2022-05-12] MEDS ORDERED: HEParin 1000 UNIT/ML (10ML VIAL) FOR BOLUS ONE (12:24)
--- NOTE | 2022-05-12 12:58 | Cardiac Procedure Note-CS/ASA ---
Pre-Procedure Note Pre-Op Procedure Note Date of Available H&P: Apr 27, 2022 Date H&P Reviewed: May 12, 2022 Time H&P Reviewed: 11:30 History & Physical: H&P Reviewed, No changes noted Conscious Sedation Pre-Proced ASA Score 3 For ASA 3 and 4: Consider anesthesia and medical clearance. Also, for patients with a history of failed moderate sedation consider anesthesia. Airway Lungs Heart ASA score ASA 1: a normal healthy patient ASA 2: a patient with a mild systemic disease (mid diabetes, controlled hypertension, obesity ASA 3: a patient with a severe systemic disease that limits activity (angina, COPD, prior Myocardial infarction) ASA 4: a patient with an incapacitating disease that is a constant threat to life (CHF, renal failure) ASA 5: a moribund patient not expected to survive 24 hrs. (ruptured aneurysm) ASA 6: a declared brain- patient whose organs are being harvested. For emergent operations, add the letter E after the classification Mallampati Classification Grade 2 Sedation Plan Analgesia, Amnesia, Plan communicated to team members The patient is an appropriate candidate to undergo the planned procedure, sedation, and anesthesia. The patient immediately re-assessed prior to indication. SANTY HILARIO MD FACP FAC CCDS May 12, 2022 12:58
[2022-05-12] MEDS ORDERED: PATIENT MAY USE OWN MEDS, ALL PO SCH (13:00)
[2022-05-12] MEDS ORDERED: NS IV 1000 ML 1,000 ML IV SCH (13:00)
--- NOTE | 2022-05-12 13:04 | Discharge Inst-Cardiology ---
Discharge Inst-Cardiac Discharge Medications Continued Medications: Acetaminophen (Tylenol) 325 Mg Tablet 650 MG PO Q6H PRN for PAIN-MILD (1-4), TAB Albuterol Sulfate (Albuterol Sulfate) 0.63 Mg/3 Ml Vial.neb 0.63 MG IH Q4H PRN for SHORTNESS OF BREATH, EACH Apixaban (Eliquis) 5 Mg Tablet 5 MG PO BID, TAB Calcium Carbonate (Tums) 200 Mg Calcium (500 Mg) Tab.chew 200 MG PO HS, TAB Diltiazem HCl (Cardizem Cd) 300 Mg Cap.er.24h 300 MG PO DAILY, CAP Ergocalciferol (Vitamin D2) (Vitamin D2) 1,250 Mcg (35470 Unit) Capsule 1250 MCG PO MONTHLY, CAP Furosemide (Furosemide) 20 Mg Tablet 20 MG PO DAILY PRN for FLUID RETENTION, TAB Krill/Om-3/Dha/Epa/Phospho/Ast (Krill Oil 500 mg Softgel) 500-150-45 Capsule 1 EACH PO DAILY, CAP Levothyroxine Sodium (Levothyroxine) 50 Mcg Capsule 50 MCG PO DAILY, CAP Loratadine (Loratadine) 10 Mg Tablet 10 MG PO DAILY PRN for ALLERGIES, TAB Losartan Potassium (Losartan Potassium) 25 Mg Tablet 25 MG PO DAILY, TAB Multivitamin (Multivitamin) 1 Each Tablet 1 EACH PO DAILY, TAB Pantoprazole Sodium (Pantoprazole Sodium) 40 Mg Tablet.dr 40 MG PO BID, TAB Potassium Chloride (Potassium Chloride) 10 Meq Tab.er.prt 10 MEQ PO DAILY PRN for FLUID RETENTION TAKES WITH FUROSEMIDE SANTY HILARIO MD FACP [facility] CCDS May 12, 2022 13:04
--- NOTE | 2022-05-12 13:04 | Discharge Inst-Post CATH ---
Discharge Inst-CATH/EP Post Cardiac Cath/EP D/C Inst Follow Up/Plan F/u with Dr Luo in one month ACTIVITY * Go Home directly and rest. * Limit activity of the leg (or wrist if it was used) for 7 days including aerobics, swimming, jogging, bicycling, etc. * Restrict stair-climbing for 7 days if possible, if not, climb up with your non-cath leg, then bring together on the same step. * Avoid lifting, pushing, pulling or excessive movement of the affected extremity for 7 days. * Customary sexual activity may be resumed after 2 days-use caution not to use a position that strains or causes pain to the affected extremity. * No driving for 24 hours. * NO SMOKING. * Avoid straining for bowel movements for 7 days. * Gentle walking on level ground is allowed. * Returning to work will depend on the type of procedure and the results. Your doctor will discuss this with you. CALL YOUR DOCTOR FOR ANY OF THE FOLLOWING: *If bleeding from the puncture site occurs- Apply gentle pressure to site with clean cloth and call your doctor or EMS. * If a knot or lump forms under the skin, increases in size, or causes pain. * If bruising appears to be worsening or moving further down your leg instead of disappearing. * Temperature above 101 F. CARE OF YOUR GROIN INCISION; * Bruising or purple discoloration of the skin near the puncture site is common. * You may shower only, no bathtub bathing for 5 days. Be careful to avoid slipping as your leg may feel stiff. * If a closure device was used on your femoral artery, please see the attached guide regarding care of the device and your leg. * Leave dressing on FOR 24 hours. CARE OF YOUR WRIST INCISION; * Bruising or purple discoloration of the skin near the puncture site is common. * You may shower. * DO NOT submerge wrist. * Leave dressing on FOR 24 hours. SANTY LUO MD [facility] May 12, 2022 13:03
[2022-05-12 14:00] VITALS: BP 125/64
[2022-05-12] MEDS ORDERED: KCL 20 MEQ TAB (K-DUR) PO NR (14:00)
--- NOTE | 2022-05-12 14:03 | CARDIAC CATHETERIZATION ---
INDICATION: The patient is an 82-year-old lady who has been experiencing increasing shortness of breath for the last several months. The symptoms have progressed to the point where she is short of breath with minimal exertion. A cardiac etiology was considered. Complete heart catheterization was recommended. Informed consent was obtained. DESCRIPTION OF PROCEDURE: She was brought to the cardiac catheterization laboratory in a fasting state. Right groin was prepared and draped in the usual sterile fashion. A 1% lidocaine used for local anesthesia. Modified Seldinger technique was used to advance a 5-Thai sheath in the right femoral artery and a 7-Thai sheath in the right femoral vein. We used a 7-Thai Chipley-Sherlyn catheter to carry out right heart catheterization and to measure right heart pressures and oxygen saturations in the various right heart chambers. The catheter was then removed. We then proceeded with left heart catheterization with a 5-Thai pigtail catheter. Left ventricular angiography was performed. The pigtail catheter was pulled back and removed. We used a 5-Thai JL4 catheter for left coronary angiography and a 5-Thai JR4 catheter for right coronary angiography. Subsequently, we carried out IFR measurement in the mid left anterior descending artery where the patient appeared to have 30-40% stenosis with mild haziness. Given her symptoms of exertional shortness of breath, we wanted to exclude any significant coronary artery disease resulting in an angina equivalent. IFR MEASUREMENT IN THE LEFT ANTERIOR DESCENDING: We used a 6-Thai JL3.5 guide catheter. We advanced a pressure wire across the lesion in the mid left anterior descending. IFR was measured at 0.99, indicating that the lesion of interest was not of any hemodynamic significance. The equipment was removed. Angiography of the right femoral artery was carried out through the sheath. Mynx was used to achieve arterial hemostasis and manual pressure was used to achieve venous hemostasis. She tolerated the procedure well. HEMODYNAMICS: Pulmonary artery pressure was 24/8 with a mean of 15 mmHg. Mean pulmonary capillary wedge pressure was 7 mmHg. Right ventricular pressure was 25/10. Mean right atrial pressure was 7 mmHg. Left ventricular pressure was 127/5. Left ventricular end-diastolic pressure was 5 mmHg. There was no significant pressure gradient on pullback across the aortic valve. Ascending aortic pressure is 120/55 with a mean of 81 mmHg. CORONARY ANGIOGRAPHY: Left main coronary artery is free of significant disease. Left anterior descending coronary artery had mild plaque in its proximal and mid portions and IFR across these lesions is 0.99, indicating that these are not hemodynamically significant. The left circumflex artery is dominant. It does not exhibit significant disease. Right coronary artery is nondominant and does not exhibit significant disease. LEFT VENTRICULAR ANGIOGRAPHY: Left ventricular angiography was carried out in right anterior oblique projection. Global left ventricular systolic function is normal. No distinct regional wall motion abnormalities are seen in this view and left ventricular ejection fraction is 55-60%. CONCLUSIONS: 1. Normal right heart pressures. 2. Normal left ventricular end-diastolic pressure. 3. Normal global left ventricular systolic function with an ejection fraction of 55-60%. 4. No significant coronary artery disease. RECOMMENDATIONS: Based on the results of the study, her symptoms do not appear to be of cardiac origin. Continue risk factor modification is advised. Outpatient followup is advised. Job ID: [id number] DocumentID: [id number] Dictated Date: 05/12/2022 13:11:43 Crew Person Date: 05/12/2022 14:02:00 Dictated By: SANTY HILARIO MD; ROBIN; JOSEP; JOSEC; ALVIN
[2022-05-12 16:00] VITALS: BP 119/67
== END 2022-05-12 17:03 | disposition home or self-care (01) ==
LOC: CATH 10:00 → ICU 13:20 → CATH 17:03
PROVIDERS: ATTEND Internal Medicine Cardiovascular Disease
DX: R06.02 Shortness of breath (principal); R00.2 Palpitations; I10 Essential (primary) hypertension; E78.2 Mixed hyperlipidemia; G47.30 Sleep apnea, unspecified; E66.9 Obesity, unspecified; I48.0 Paroxysmal atrial fibrillation; I77.9 Disorder of arteries and arterioles, unspecified; E21.3 Hyperparathyroidism, unspecified; Z68.34 Body mass index [BMI] 34.0-34.9, adult; Z87.891 Personal history of nicotine dependence; Z79.01 Long term (current) use of anticoagulants
CPT/HCPCS: 80053; 80061; 85027; 85610; 85730; 87081; 93005; 93460; 93571; C1760; C1769 ×2; C1887 ×2; C1894 ×3; 36415

== ENCOUNTER 2022-09-24 14:06 | Outpatient (RCR) | payer MEDICARE ==
[~2022-09-24 14:06] MED LIST changes: -HEParin (CATH LAB) 2,000 ML IV ONE; -LIDOCAINE 1% INJ 30 ML (XYLOCAINE) VIAL ONE; -NS IV 1000 ML 1,000 ML IV ONE; -NS IV 1000 ML 1,000 ML ONE
== END 2022-09-27 | disposition home or self-care (01) ==
PROVIDERS: ATTEND Nurse Practitioner Family
DX: J44.9 Chronic obstructive pulmonary disease, unspecified (principal); I10 Essential (primary) hypertension

== ENCOUNTER 2022-10-27 10:13 | Outpatient (RCR) | payer MEDICARE | END 2022-10-28 | disposition home or self-care (01) | PROVIDERS: ATTEND Nurse Practitioner Family | DX: J44.9 Chronic obstructive pulmonary disease, unspecified (principal); I10 Essential (primary) hypertension ==

== ENCOUNTER 2022-11-19 10:57 | Outpatient (RCR) | payer MEDICARE | END 2022-11-27 | disposition home or self-care (01) | PROVIDERS: ATTEND Nurse Practitioner Family | DX: J44.9 Chronic obstructive pulmonary disease, unspecified (principal); I10 Essential (primary) hypertension ==

== ENCOUNTER 2022-12-08 15:05 | Emergency (ER) | payer MEDICARE ==
[2022-12-08 15:35] LABS: BASOPHILS % (AUTO) 0 % (0-10); EOSINOPHILS # (AUTO) 0.1 10^3/uL (0.0-0.3); EOSINOPHILS % (AUTO) 1 % (0-10); HEMATOCRIT 45 % (35-52); HEMOGLOBIN 14.9 g/dL (11.5-16.0); LYMPHOCYTES # (AUTO) 3.1 X 10^3 (1.0-4.0); LYMPHOCYTES % (AUTO) 36 % (12-44); MEAN CORPUSCULAR HEMOGLOBIN 31 pg (25-34); MEAN CORPUSCULAR HGB CONC 33 g/dL (32-36); MEAN CORPUSCULAR VOLUME 94 fL (80-99); MEAN PLATELET VOLUME 9.4 fL (9.0-12.2); MONOCYTES # (AUTO) 0.7 X 10^3 (0.0-1.0); MONOCYTES % (AUTO) 8 % (0-12); NEUTROPHILS # (AUTO) 4.6 X 10^3 (1.8-7.8); NEUTROPHILS % (AUTO) 55 % (42-75); PLATELET COUNT 289 10^3/uL (130-400); WHITE BLOOD COUNT 8.4 10^3/uL (4.3-11.0)
--- NOTE | 2022-12-08 15:35 | ED General ---
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 PT STATES PAIN RADIATES FROM FRONT OF CHEST TO BACK. PT REPORTS DIZZINESS AND SOA BEGINING LAST PM. PT STATES HAS HX OF A-FIB. 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 She states that she did not feel very well over the last couple of days she has been a little dizzy and short of breath intermittently. She states that this discomfort feels different than her normal "heartburn". She does have a history of atrial fibrillation, she is chronically anticoagulated with Eliquis. She denies productive cough. No diarrhea or urinary issues. No fevers or chills. Fairly fatty meals yesterday with Peanutbutter sandwich and milk and Spare ribs for supper. Cereal for breakfast today around 11am Still has her GB. Heart cath Apr 2022 which showed no significant CAD Timing/Duration: 4-6 Hours Severity: Mild ("2, 3 maybe 4") Modifying Factors: improves with Other (movement makes her labored in her breathing) Associated Systoms: Nausea/Vomiting (minimal nausea) (ELYSSA AHN MD) Allergies and Home Medications Allergies Coded Allergies: Penicillins (Verified Allergy, Unknown, 07/02/21) amoxicillin (Unverified Allergy, Unknown, RASH, 07/31/14) Patient Home Medication List Home Medication List Reviewed: Yes (ELYSSA AHN MD) Acetaminophen (Tylenol) 325 Mg Tablet, 650 MG PO Q6H PRN for PAIN-MILD (1-4), (Reported) Entered as Reported by: HORTENCIA BRAND on 05/12/22906 Albuterol Sulfate (Albuterol Sulfate) 0.63 Mg/3 Ml Vial.neb, 0.63 MG IH Q4H PRN for SHORTNESS OF BREATH, (Reported) Entered as Reported by: HORTENCIA BRAND on 05/12/22906 Apixaban (Eliquis) 5 Mg Tablet, 5 MG PO BID, (Reported) Entered as Reported by: SHARLENE LACEY on 03/26/20 1044 Calcium Carbonate (Tums) 200 Mg Calcium (500 Mg) Tab.chew, 200 MG PO HS, (Reported) Entered as Reported by: HORTENCIA BRAND on 05/12/22 09 Dicyclomine HCl (Dicyclomine HCl) 20 Mg Tablet, 20 MG PO QIDACHS Prescribed by: ELYSSA AHN on 12/08/22 170 Diltiazem HCl (Cardizem Cd) 300 Mg Cap.er.24h, 300 MG PO DAILY, (Reported) Entered as Reported by: SHARLENE LACEY on 03/26/20 104 Ergocalciferol (Vitamin D2) (Vitamin D2) 1,250 Mcg (81159 Unit) Capsule, 1,250 MCG PO MONTHLY, (Reported) Entered as Reported by: HORTENCIA BRAND on 05/12/22 09 Furosemide (Furosemide) 20 Mg Tablet, 20 MG PO DAILY PRN for FLUID RETENTION, (Reported) Entered as Reported by: HORTENCIA BRAND on 05/12/22 09 Krill/Om-3/Dha/Epa/Phospho/Ast (Krill Oil 500 mg Softgel) 500-150-45 Capsule, 1 EACH PO DAILY, (Reported) Entered as Reported by: HORTENCIA BRAND on 05/12/22 09 Levothyroxine Sodium (Levothyroxine) 50 Mcg Capsule, 50 MCG PO DAILY, (Reported) Entered as Reported by: ALVINA MANDUJANO on 07/08/21 1215 Loratadine (Loratadine) 10 Mg Tablet, 10 MG PO DAILY PRN for ALLERGIES, (Reported) Entered as Reported by: ALVINA MANDUJANO on 07/08/21 1216 Losartan Potassium (Losartan Potassium) 25 Mg Tablet, 25 MG PO DAILY, (Reported) Entered as Reported by: SHARLENE LACEY on 03/26/20 1056 Multivitamin (Multivitamin) 1 Each Tablet, 1 EACH PO DAILY, (Reported) Entered as Reported by: SHARLENE LACEY on 03/26/20 1056 Ondansetron (Ondansetron Odt) 4 Mg Tab.rapdis, 4 MG SL Q4H PRN for NAUSEA/VOMITING Prescribed by: JEN CAVAZOS on 12/08/222027 Pantoprazole Sodium (Pantoprazole Sodium) 40 Mg Tablet.dr, 40 MG PO BID, (Reported) Entered as Reported by: HORTENCIA BRAND on 05/12/22906 Potassium Chloride (Potassium Chloride) 10 Meq Tab.er.prt, 10 MEQ PO DAILY PRN for FLUID RETENTION, (Reported) Entered as Reported by: HORTENCIA BRAND on 05/12/22906 Review of Systems Review of Systems Constitutional: see HPI EENTM: no symptoms reported Respiratory: short of breath (chronically) Cardiovascular: chest pain ("epigastric" pain more) Gastrointestinal: abdominal pain, nausea Genitourinary: no symptoms reported Musculoskeletal: no symptoms reported Skin: no symptoms reported Psychiatric/Neurological: No Symptoms Reported (ELYSSA AHN MD) All Other Systems Reviewed Negative Unless Noted: Yes (ELYSSA AHN MD) Past Cduwjtd-Dterka-Vgehzc Hx Patient Social History Tobacco Use?: No Smoking Status: Former Smoker Substance use?: No Alcohol Use?: No Pt feels they are or have been: No (ELYSSA AHN MD) Immunizations Up To Date First/Initial COVID19 Vaccinat: JULY 2020 Second COVID19 Vaccination Andrey: JULY 2020 Third COVID19 Vaccination Date: MARCH 2021 (ELYSSA AHN MD) Seasonal Allergies Seasonal Allergies: No (ELYSSA AHN MD) Past Medical History Surgery/Hospitalization HX: MED. HX.-A FIB, COPD, AND HTN. SURG. HX- HYST., NODULE REMOVAL FROM THROAT. Surgeries: Yes (THROAT, THYROID SURG) Hysterectomy, Thyroidectomy Respiratory: Yes COPD Cardiac: Yes (A-FIB) Atrial Fibrillation, Hypertension Neurological: No Female Reproductive Disorders: Denies Sexually Transmitted Disease: No HIV/AIDS: No Gastrointestinal: Yes (DIVERTICULITIS, FREQ LOOSE STOOLS) Diverticulosis, Hiatal Hernia Musculoskeletal: No Endocrine: No HEENT: No Cancer: No Psychosocial: No Integumentary: Yes Psoriasis Blood Disorders: No (ELYSSA AHN MD) Family Medical History No Pertinent Family Hx (ELYSSA AHN MD) Physical Exam Vital Signs Vital Signs - First Documented 12/08/22 15:05 Temp 36.2 Pulse 82 Resp 25 B/P (MAP) 186/96 (126) Pulse Ox 96 O2 Delivery Room Air (JEN SILVA MD) Vital Signs Capillary Refill : Less Than 3 Seconds (ELYSSA AHN MD) Height, Weight, BMI Height: 5'1.00" Weight: 168lbs. 0.0oz. [id number]; 34.84 BMI Method:Stated General Appearance: No Apparent Distress, WD/WN, Obese Eyes: Bilateral Eye Normal Inspection, Bilateral Eye PERRL, Bilateral Eye EOMI HEENT: PERRL/EOMI Neck: Normal Inspection Respiratory: Lungs Clear, Normal Breath Sounds, No Accessory Muscle Use, No Respiratory Distress Cardiovascular: Normal Peripheral Pulses, Irregularly Irregular Gastrointestinal: Normal Bowel Sounds, Soft, Tenderness (epigastric tenderness and RUQ tenderness (mild) no significant "posada's sign".) Extremity: Normal Inspection, Normal Range of Motion, No Pedal Edema Neurologic/Psychiatric: Alert, Oriented x3, No Motor/Sensory Deficits, Normal 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, 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 Norm as Tested Skin: Normal Color, Warm/Dry (ELYSSA AHN MD) Progress/Results/Core Measures Suspected Sepsis SIRS Temperature: Pulse: 82 Respiratory Rate: 25 Laboratory Tests 12/08/22 15:16: White Blood Count 8.4 Blood Pressure 186 /96 Mean: 126 Laboratory Tests 12/08/22 15:16: Creatinine 0.99, INR Comment 1.1, Platelet Count 289, Total Bilirubin 0.4 (ELYSSA AHN MD) Results/Orders Lab Results Laboratory Tests Test 12/08/22 15:16 12/08/22 17:24 12/08/22 20:04 Range/Units White Blood Count 8.4 4.3-11.0 10^3/uL Red Blood Count 4.85 3.80-5.11 10^6/uL Hemoglobin 14.9 11.5-16.0 g/dL Hematocrit 45 35-52 % Mean Corpuscular Volume 94 80-99 fL Mean Corpuscular Hemoglobin 31 25-34 pg Mean Corpuscular Hemoglobin Concent 33 32-36 g/dL Red Cell Distribution Width 13.5 10.0-14.5 % Platelet Count 289 130-400 10^3/uL Mean Platelet Volume 9.4 9.0-12.2 fL Immature Granulocyte % (Auto) 0 % Neutrophils (%) (Auto) 55 42-75 % Lymphocytes (%) (Auto) 36 12-44 % Monocytes (%) (Auto) 8 0-12 % Eosinophils (%) (Auto) 1 0-10 % Basophils (%) (Auto) 0 0-10 % Neutrophils # (Auto) 4.6 1.8-7.8 X 10^3 Lymphocytes # (Auto) 3.1 1.0-4.0 X 10^3 Monocytes # (Auto) 0.7 0.0-1.0 X 10^3 Eosinophils # (Auto) 0.1 0.0-0.3 10^3/uL Basophils # (Auto) 0.0 0.0-0.1 10^3/uL Immature Granulocyte # (Auto) 0.0 0.0-0.1 10^3/uL Prothrombin Time 14.4 12.2-14.7 SEC INR Comment 1.1 0.8-1.4 Activated Partial Thromboplast Time 30 24-35 SEC Sodium Level 141 135-145 MMOL/L Potassium Level 3.7 3.6-5.0 MMOL/L Chloride Level 106 98-107 MMOL/L Carbon Dioxide Level 25 21-32 MMOL/L Anion Gap 10 5-14 MMOL/L Blood Urea Nitrogen 20 H 7-18 MG/DL Creatinine 0.99 0.60-1.30 MG/DL Estimat Glomerular Filtration Rate 57 BUN/Creatinine Ratio 20 Glucose Level 145 H 70-105 MG/DL Calcium Level 9.6 8.5-10.1 MG/DL Corrected Calcium 9.7 8.5-10.1 MG/DL Magnesium Level 2.2 1.6-2.4 MG/DL Total Bilirubin 0.4 0.1-1.0 MG/DL Aspartate Amino Transf (AST/SGOT) 37 H 5-34 U/L Alanine Aminotransferase (ALT/SGPT) 33 0-55 U/L Alkaline Phosphatase 66 40-136 U/L Troponin I < 0.028 < 0.028 <0.028 NG/ML Total Protein 7.6 6.4-8.2 GM/DL Albumin 3.9 3.2-4.5 GM/DL C-Reactive Protein High Sensitivity 0.25 0.00-0.50 MG/DL Lipase 28 8-78 U/L Urine Color YELLOW Urine Clarity CLEAR Urine pH 7.0 5-9 Urine Specific [place] <=1.005 1.016-1.022 Urine Protein TRACE H NEGATIVE Urine Glucose (UA) NEGATIVE NEGATIVE Urine Ketones NEGATIVE NEGATIVE Urine Nitrite NEGATIVE NEGATIVE Urine Bilirubin NEGATIVE NEGATIVE Urine Urobilinogen 0.2 < = 1.0 MG/DL Urine Leukocyte Esterase NEGATIVE NEGATIVE Urine RBC (Auto) NEGATIVE NEGATIVE Urine RBC 0-2 /HPF Urine WBC 2-5 /HPF Urine Squamous Epithelial Cells >50 H /HPF Urine Crystals PRESENT H /LPF Urine Calcium Oxalate Crystals MODERATE H /LPF Urine Bacteria TRACE /HPF Urine Casts PRESENT /LPF Urine Hyaline Casts 2-5 H /LPF Urine Mucus LARGE H /LPF Urine Other TRANS EPI 2-5 /HPF Urine Culture Indicated NO (JEN SILVA MD) My Orders Orders - JEN SILVA MD Hs C Reactive Protein (12/08/22 18:38) Lipase (12/08/22 18:38) Ua Culture If Indicated (12/08/22 18:38) Ondansetron Injection (Zofran Injectio (12/08/22 18:45) Lactated Ringers (Lr 1000 Ml Iv Solution (12/08/22 18:45) Ct Angio Chst/Abd/Pelv W (12/08/22 18:40) Pantoprazole Injection (Protonix Injecti (12/08/22 18:45) Iohexol Injection (Omnipaque 350 Mg/Ml 1 (12/08/22 19:00) Received Contrast (Hold Metformin- Contr (12/08/22 19:00) Ns (Ivpb) (Sodium Chloride 0.9% Ivpb Bag (12/08/22 19:00) (JEN SILVA MD) Medications Given in ED Current Medications Medications Dose Ordered Sig/Shaila Route Start Time Stop Time Status Last Admin Dose Admin Al Hydrox/Mg Hydrox/Simethicone 30 ml ONCE ONCE PO 12/08/22 16:30 12/08/22 16:31 DC 12/08/22 16:34 30 ML Iohexol 100 ml ONCE ONCE IV 12/08/22 19:00 12/08/22 19:01 DC 12/08/22 19:18 80 ML Lactated Ringer's 1,000 ml @ 0 mls/hr Q0M ONCE IV 12/08/22 18:45 12/08/22 18:46 DC 12/08/22 18:52 1,000 MLS/HR Lidocaine HCl 5 ml ONCE ONCE PO 12/08/22 16:30 12/08/22 16:31 DC 12/08/22 16:34 5 ML Ondansetron HCl 8 mg ONCE ONCE IVP 12/08/22 18:45 12/08/22 18:46 DC 12/08/22 18:52 8 MG Pantoprazole 40 mg ONCE ONCE IV 12/08/22 18:45 12/08/22 18:46 DC 12/08/22 18:52 40 MG Sodium Chloride 100 ml ONCE ONCE IV 12/08/22 19:00 12/08/22 19:01 DC 12/08/22 19:18 80 ML (JEN SILVA MD) Vital Signs/I&O 12/08/22 15:05 Temp 36.2 Pulse 82 Resp 25 B/P (MAP) 186/96 (126) Pulse Ox 96 O2 Delivery Room Air (JEN SILVA MD) Vital Signs/I&O Capillary Refill : Less Than 3 Seconds (ELYSSA AHN MD) Blood Pressure Mean: 126 Progress Note #1: Time: 16:33 Progress Note Patient seen and evaluated by me. Evaluation today includes physical exam, CBC, CMP, troponin x2, EKG and chest xray. Pertinent physical exam findings include soft abdomen with normal bowel sounds and tenderness in the epigastrum and RUQ - neg Posada's. Heart is irregular to auscultation but sinus on EKG. Lungs clear. No focal neurologic deficits on neuro exam. DDx based on H&P includes NSTEMI/ACS, acute cholecystits, BPV Labs independently reviewed and interpreted by me. CBC is normal, Chem 12 is normal (sugar 145), troponin x2 undetectable. CXR WNL and EKG sinus with frequent PVC's. Patient treated in the ED with maalox, viscous lidocaine and 20mg IM bentyl. SHe obtained complete relief of symptoms. No concerning findings of ACS; her WBC and LFT's are normal. No concern at this time for ac bulmaro cholecystitis. I have recommended follow up with her PCP to look into a GB ultrasound. Progress Note #2: Time: 18:17 Progress Note Notified by patient's nurse ROBERTO Lainez that the patient sat forward to start getting out of bed when she became acutely nauseated and vomited, became very clammy. BP noted to be 85 systolic and then 77 systolic. Patient denied any pain. she states she became "a little" dizzy when she sat forward. I suspect she vagal'd. Did not lose consciousness. Maintained normal mentation. She is currently 110 systolic. Will stand her up and see how she feels. 1825 BP 110 systolic after standing. Will continue to monitor for recovery. (ELYSSA AHN MD) Progress Note #1: Time: 18:51 Progress Note Care of this patient was assumed from Dr. Ahn at shift change. Bedside transition of care and reassessment of patient was pursued. Patient was noted to have a systolic blood pressure of 85 after removal of her IV. She was also feeling lightheaded. She had a brief recurrence of abdominal pain and nausea. Nausea has dissipated. On reexamination abdomen is soft and mostly nontender. She does have some mild tenderness just right of the epigastrium. No palpable masses were appreciated although body habitus limits exam. Patient is being treated with Zofran, Protonix, and a liter of LR. Because of patient's hypotension with relative bradycardia and usage of Eliquis, we are obtaining CT angiogram of the chest, abdomen, and pelvis. Patient did state that she had a little bit of radiation of pain toward her back. Systolic blood pressure has rebounded into the 120s. Patient is comfortable at this time. She was noted on my reexamination to be somewhat pale in appearance in her face. An IV sufficient for angiogram has been reestablished. Progress Note #2: Time: 19:59 Progress Note Patient's blood pressure has normalized. Additional labs were evaluated including lipase and CRP which were normal. CT angiogram chest, abdomen and pelvis was viewed by me. By my interpretation there were no acute pathologies with the aorta. There did appear to be localized inflammation of the ascending colon and some thickening of the colon wall. Large, benign-appearing renal cysts were noted bilaterally. Additionally, the gallbladder appeared distended without any inflammatory changes or wall thickening to suggest acute cholecystitis. Significant sigmoid diverticulosis without diverticulitis was also noted. Radiologist's interpretation was also reviewed and revealed similar findings. The inflammatory changes around the ascending colon were not mentioned in the report. Ultimately, no concerning acute pathology was noted in the CT report. I suspect there is a component of viral illness as the WBC differential on the CBC demonstrates a lymphocytic shift. CRP was normal suggesting absence of significant bacterial infection. Inflammatory changes around the a sending colon may be related to viral illness. Progress Note #3: Time: 20:42 Progress Note Urinalysis was unremarkable. See discharge instructions for further discussion. (JEN SILVA MD) ECG Initial ECG Impression Date: Dec 08, 2022 Initial ECG Impression Time: 15:10 Initial ECG Rate: 81 Initial ECG Rhythm: Normal Sinus Initial ECG Intervals: Normal Comment sinus with frequent PVC's; No ST segment elevation or depression; (ELYSSA AHN MD) Diagnostic Imaging Diagonstic Imaging: Xray Comments [facility] [place], [place] NAME: SANDRA VÁZQUEZ [facility] REC#: [id number] PT STATUS: REG ER : 1940 PHYSICIAN: ELYSSA AHN MD ADMIT DATE: 12/08/22/ER Signed Date of Exam:12/08/22 CHEST 1 VIEW, AP/PA ONLY EXAMINATION: Chest radiograph, portable AP view. DATE: 12/08/2022 3:36 PM INDICATION: 82-year-old female, chest pain. COMPARISON: April 20, 2022. FINDINGS: Heart size and mediastinal contours are unchanged. There is no identified pneumothorax. There is no large pleural effusion. There is no identified focal airspace consolidation. IMPRESSION: 1. No identified acute cardiopulmonary abnormality. Dictated by: Dictated on workstation # [id number] Dict: 12/08/22 1606 Trans: 12/08/22 1617 [facility] [id number] Interpreted by: TOMAS ADLER MD Electronically signed by: TOMAS ADLER MD 12/08/22 1617 (ELYSSA AHN MD) Diagonstic Imaging: CT Plain Films/CT/US/NM/MRI: abdomen, pelvis Comments NAME: SANDRA VÁZQUEZ [facility] REC#: [id number] PT STATUS: REG ER : 1940 PHYSICIAN: JEN SILVA MD ADMIT DATE: 12/08/22/ER Signed Date of Exam:12/08/22 CT ANGIO CHST/ABD/PELV W PROCEDURE: CT angiography of the chest with contrast and CT abdomen and pelvis with contrast. TECHNIQUE: Multiple contiguous axial images were obtained through the chest, abdomen and pelvis after administration of intravenous contrast. 3D MIP reconstructed CT angiography acquisitions of the aorta were then performed. Auto Exposure Controls were utilized during the CT exam to meet ALARA standards for radiation dose reduction. INDICATION: Hypotension as well as chest and abdominal pain. The study is performed to evaluate for thoracic and abdominal aortic dissection and intra-abdominal hemorrhage. CT angiogram chest: Comparison is made with prior CT angiogram of the chest from 04/20/2022. The thoracic aorta does show atherosclerotic changes but is nonaneurysmal. No dissection is identified. The abdominal aorta is normal in caliber as well and shows atherosclerotic changes. No dissection is identified. The central pulmonary arterial system is unremarkable for filling defect. No pericardial or pleural fluid is identified. No pulmonary infiltrates, nodules or masses are seen. There is a moderate-sized hiatal hernia. The celiac, SMA and SHERYL are widely patent. Renal arteries are patent bilaterally. Common and external iliac arteries show calcified plaque but no high-grade stenosis is identified. Liver parenchyma is heterogeneous and low attenuation consistent with hepatic steatosis. No discrete mass is identified. The gallbladder is unremarkable. The intrahepatic and extrahepatic biliary ducts are somewhat prominent but no obstructing lesion is identified. Pancreas and spleen are unremarkable. No adrenal mass is detected. Both kidneys contain low-attenuation lesions, largest on the right measuring 7.5 cm and most consistent with cysts. There is no hydronephrosis. Bowel loops are normal in caliber. There is diverticulosis of the descending and sigmoid colon but no evidence of acute diverticulitis. There is no free fluid or fluid collection identified. The bladder is decompressed. The uterus appears to be surgically absent. Bony structures are unremarkable. IMPRESSION: 1. No evidence of thoracic or abdominal aortic aneurysm or dissection. No acute feature in the chest, abdomen or pelvis is identified. 2. Hiatal hernia. 3. Hepatic steatosis. There does appear to be some mild dilatation of the intrahepatic and extrahepatic bile ducts without evidence of obstructing lesion. Correlation with liver laboratory studies would be recommended. 4. Bilateral renal cysts. 5. Uncomplicated diverticulosis. Dictated by: Dictated on workstation # [id number] Dict: 12/08/221923 Trans: 12/08/221943 [facility] [id number] Interpreted by: ADRIAN PRATT MD Electronically signed by: ADRIAN PRATT MD 12/08/221943 (JEN SILVA MD) Departure Impression Primary Impression: Epigastric abdominal pain Additional Impressions: Nausea & vomiting Qualified Codes: R11.2 - Nausea with vomiting, unspecified Hypotensive episode Disposition: 01 HOME, SELF-CARE Condition: Stable Departure-Patient Inst. Decision time for Depature: 17:59 (ELYSSA AHN MD) Decision time for Depature: 20:24 (EJN SILVA MD) Referrals: DANIS ARAUJO MD (PCP) Primary Care Physician Patient Instructions: Abdominal Pain, Adult ED Add. Discharge Instructions: The exact cause of your abdominal pain and other symptoms is uncertain. No serious findings were noted on your CT scan. Your symptoms may simply be related to viral illness. Your low blood pressure may have been related to a vasovagal response. Gallbladder disease was not completely ruled out as further studies may be needed such as gallbladder ultrasound and/or hepatobiliary scan. Start with a noncarbonated clear liquid diet. Gradually advance your diet with small quantities of bland food as tolerated. Avoid dairy products or f atty/greasy foods for the next couple of days. It is possible that your pain is related to the gallbladder. Fats, oils, and greases tend to aggravate gallbladder problems, so you should try to avoid these foods in the short-term. If you continue to have pain, nausea, and vomiting, discussed obtaining a gallbladder ultrasound for evaluation of gallstones with Dr. Araujo. A fol low-up test to gallbladder ultrasound can be hepatobiliary scan to evaluate the gallbladder function. Start Dicyclomine 20mg tablets 30min before eating to potentially help with upper abdominal discomfort, related to possible gallbladder dysfunction. Dic yclomine can also be used for bowel cramping and spasms. You may use Zofran (ondansetron) as prescribed for nausea or vomiting. If you have any worsening pain, especially with vomiting and/or fever, please return to the Emergency Department for re-evaluation. PLease follow up with your primary care doctor to discuss an outpatient Gallbladder ultrasound. Scripts Ondansetron (Ondansetron Odt) 4 Mg Tab.rapdis 4 MG SL Q4H PRN for NAUSEA/VOMITING, #10 TAB Prov: JEN SILVA MD 12/08/22 Dicyclomine HCl (Dicyclomine HCl) 20 Mg Tablet 20 MG PO QIDACHS, #60 TAB Prov: EYLSSA AHN MD 12/08/22 Copy Copies To 1: DANIS ARAUJO MD, KATHRYN M MD Dec 08, 2022 15:35 JEN SILVA MD Dec 08, 2022 18:53
[2022-12-08 15:38] LABS: ALBUMIN 3.9 GM/DL (3.2-4.5); CHLORIDE 106 MMOL/L (98-107)
[2022-12-08 15:39] LABS: INR 1.1 (0.8-1.4); POTASSIUM 3.7 MMOL/L (3.6-5.0); PROTHROMBIN TIME PATIENT 14.4 SEC (12.2-14.7); SODIUM 141 MMOL/L (135-145)
[2022-12-08 15:40] LABS: CALCIUM 9.6 MG/DL (8.5-10.1)
[2022-12-08 15:41] LABS: GLUCOSE 145 MG/DL (70-105); TOTAL PROTEIN 7.6 GM/DL (6.4-8.2)
[2022-12-08 15:42] LABS: CARBON DIOXIDE 25 MMOL/L (21-32)
[2022-12-08 15:43] LABS: BILIRUBIN,TOTAL 0.4 MG/DL (0.1-1.0)
[2022-12-08 15:44] LABS: ALKALINE PHOSPHATASE 66 U/L (40-136); CREATININE SERUM 0.99 MG/DL (0.60-1.30); GFR ESTIMATED 57
[2022-12-08 15:45] LABS: BUN/CREATININE RATIO 20
[2022-12-08 15:47] LABS: ALANINE AMINOTRANSFERASE 33 U/L (0-55); MAGNESIUM 2.2 MG/DL (1.6-2.4)
--- NOTE | 2022-12-08 16:08 | Diagnostic Imaging Report ---
EXAMINATION: Chest radiograph, portable AP view. DATE: 12/08/2022 3:36 PM INDICATION: 82-year-old female, chest pain. COMPARISON: April 20, 2022. FINDINGS: Heart size and mediastinal contours are unchanged. There is no identified pneumothorax. There is no large pleural effusion. There is no identified focal airspace consolidation. IMPRESSION: 1. No identified acute cardiopulmonary abnormality. Dictated by: Dictated on workstation # [id number]
[2022-12-08] MEDS ORDERED: DICYCLOMINE 10 MG/ML (BENTYL) 2 ML AMP IM STA (16:26)
[2022-12-08] MEDS ORDERED: ANTACID SUSP 30 ML UDC (MYLANTA) PO ONE (16:30)
[2022-12-08] MEDS ORDERED: LIDOCAINE 2% VISCOUS 15 ML UDC PO ONE (16:30)
[2022-12-08] MEDS ORDERED: DICY20TA PO (17:04)
[2022-12-08] MEDS ORDERED: PANTOPRAZOLE 40 MG (PROTONIX) VIAL IV ONE (18:45)
[2022-12-08] MEDS ORDERED: ONDANSETRON 4 MG/2 ML (SDV) Z0FRAN IVP ONE (18:45)
[2022-12-08] MEDS ORDERED: LACTATED RINGERS 1,000 ML IV ONE (18:45)
[2022-12-08] MEDS ORDERED: HOLD METFORMIN - RECEIVED CONTRAST 20 ML VIAL IV SCH (19:00)
[2022-12-08] MEDS ORDERED: IOHEXOL 350 MG/ML 100 ML (OMNIPAQUE 350) VIAL IV ONE (19:00)
[2022-12-08] MEDS ORDERED: NS 100 ML (IVPB) BAG IV ONE (19:00)
--- NOTE | 2022-12-08 19:37 | Diagnostic Imaging Report ---
PROCEDURE: CT angiography of the chest with contrast and CT abdomen and pelvis with contrast. TECHNIQUE: Multiple contiguous axial images were obtained through the chest, abdomen and pelvis after administration of intravenous contrast. 3D MIP reconstructed CT angiography acquisitions of the aorta were then performed. Auto Exposure Controls were utilized during the CT exam to meet ALARA standards for radiation dose reduction. INDICATION: Hypotension as well as chest and abdominal pain. The study is performed to evaluate for thoracic and abdominal aortic dissection and intra-abdominal hemorrhage. CT angiogram chest: Comparison is made with prior CT angiogram of the chest from 04/20/2022. The thoracic aorta does show atherosclerotic changes but is nonaneurysmal. No dissection is identified. The abdominal aorta is normal in caliber as well and shows atherosclerotic changes. No dissection is identified. The central pulmonary arterial system is unremarkable for filling defect. No pericardial or pleural fluid is identified. No pulmonary infiltrates, nodules or masses are seen. There is a moderate-sized hiatal hernia. The celiac, SMA and SHERYL are widely patent. Renal arteries are patent bilaterally. Common and external iliac arteries show calcified plaque but no high-grade stenosis is identified. Liver parenchyma is heterogeneous and low attenuation consistent with hepatic steatosis. No discrete mass is identified. The gallbladder is unremarkable. The intrahepatic and extrahepatic biliary ducts are somewhat prominent but no obstructing lesion is identified. Pancreas and spleen are unremarkable. No adrenal mass is detected. Both kidneys contain low-attenuation lesions, largest on the right measuring 7.5 cm and most consistent with cysts. There is no hydronephrosis. Bowel loops are normal in caliber. There is diverticulosis of the descending and sigmoid colon but no evidence of acute diverticulitis. There is no free fluid or fluid collection identified. The bladder is decompressed. The uterus appears to be surgically absent. Bony structures are unremarkable. IMPRESSION: 1. No evidence of thoracic or abdominal aortic aneurysm or dissection. No acute feature in the chest, abdomen or pelvis is identified. 2. Hiatal hernia. 3. Hepatic steatosis. There does appear to be some mild dilatation of the intrahepatic and extrahepatic bile ducts without evidence of obstructing lesion. Correlation with liver laboratory studies would be recommended. 4. Bilateral renal cysts. 5. Uncomplicated diverticulosis. Dictated by: Dictated on workstation # [id number]
[2022-12-08 20:17] LABS: BILIRUBIN,URINE NEGATIVE (NEGATIVE); CLARITY,URINE CLEAR; COLOR,URINE YELLOW; GLUCOSE, URINE (UA) NEGATIVE (NEGATIVE); KETONES,URINE NEGATIVE (NEGATIVE); LEUKOCYTE ESTERASE ,URINE NEGATIVE (NEGATIVE); NITRITE,URINE NEGATIVE (NEGATIVE); PROTEIN,URINE TRACE (NEGATIVE)
[2022-12-08] MEDS ORDERED: ONDA4TAB11 SL (20:28)
[2022-12-08 20:30] LABS: CALCIUM OXALATE CRYSTALS,UR MODERATE /LPF
[2022-12-08 20:32] LABS: RBC,URINE 0-2 /HPF
[2022-12-08 20:33] LABS: BACTERIA,URINE TRACE /HPF; SQUAMOUS EPITHELIAL CELL,UR >50 /HPF
[2022-12-08 20:34] LABS: URINE OTHER TRANS EPI 2-5 /HPF
[2022-12-08 20:51] VITALS: BP 138/82
== END 2022-12-08 20:51 | disposition home or self-care (01) ==
LOC: EDUNIT# 15:13 → ER 15:14
DX: K57.30 Diverticulosis of large intestine without perforation or abscess without bleeding (principal); I95.9 Hypotension, unspecified; I49.3 Ventricular premature depolarization; I48.91 Unspecified atrial fibrillation; E66.9 Obesity, unspecified; Z87.891 Personal history of nicotine dependence; Z68.34 Body mass index [BMI] 34.0-34.9, adult; Z79.01 Long term (current) use of anticoagulants
CPT/HCPCS: 36415; 71045; 71275; 74174; 80053; 81000; 83690; 83735; 84484; 85025; 85610; 85730; 86141; 93005; 93041

== ENCOUNTER 2022-12-13 15:58 | Emergency (ER) | payer MEDICARE ==
[~2022-12-13] VITALS: Ht 157 cm; Wt 88.0 kg
[~2022-12-13 15:58] MED LIST changes: +DICY20TA PO; +ONDA4TAB11 SL
[2022-12-13 16:09] VITALS: BP 149/104
[2022-12-13] MEDS ORDERED: ORPHENADRINE 60 MG/2 ML (NORFLEX) AMP (ED ONLY) IM ONE (16:30)
--- NOTE | 2022-12-13 16:31 | ED Neck-Back Pain/Injury ---
General Chief Complaint: Head/Cervical Problems Stated Complaint: NECK PAIN Nursing Triage Note: PT TO [facility] 6 BY W/C PT STATES ON WEDNESDAY AWOKE FROM [facility] W SEVERE NECK PAIN ON BOTH SIDES RATES PAIN 10/10. PT STATES IS UNABLE TO MOVE NECK Source of Information: Patient Exam Limitations: No Limitations History of Present Illness Date Seen by Provider: Dec 13, 2022 Time Seen by Provider: 16:27 Initial Comments Patient is a 82-year-old female who presents ED with bilateral neck pain. She states she woke up off the couch on Wednesday with pain in her neck bilateral. Pain is described as dull and achy and only occurs with side to side movement. She states she typically does not sleep on the couch. May have slept wrong. She went to urgent care was given tizanidine without much improvement. Sharp pain today. Denies of any numbness and tingling into her upper extremities. Denies of any upper or lower extremity weakness. She denies of any trauma or fall. No fever, chills, body aches. Patient is able to move slightly of her neck side to side however this results in pain. She denies chest pain, cough, shortness of breath, abdominal pain, dysuria, hematuria, bowel or urine incontinence. Allergies and Home Medications Allergies Coded Allergies: Penicillins (Verified Allergy, Unknown, 07/02/21) amoxicillin (Unverified Allergy, Unknown, RASH, 07/31/14) Patient Home Medication List Home Medication List Reviewed: Yes Acetaminophen (Tylenol) 325 Mg Tablet, 650 MG PO Q6H PRN for PAIN-MILD (1-4), (Reported) Entered as Reported by: HORTENCIA BRAND on 05/12/22 09 Albuterol Sulfate (Albuterol Sulfate) 0.63 Mg/3 Ml Vial.neb, 0.63 MG IH Q4H PRN for SHORTNESS OF BREATH, (Reported) Entered as Reported by: HORTENCIA BRAND on 05/12/22 09 Apixaban (Eliquis) 5 Mg Tablet, 5 MG PO BID, (Reported) Entered as Reported by: SHARLENE LACEY on 03/26/20 1044 Calcium Carbonate (Tums) 200 Mg Calcium (500 Mg) Tab.chew, 200 MG PO HS, (Reported) Entered as Reported by: HORTENCIA BRAND on 05/12/22 09 Dicyclomine HCl (Dicyclomine HCl) 20 Mg Tablet, 20 MG PO QIDACHS Prescribed by: ELYSSA AHN on 12/08/22 170 Diltiazem HCl (Cardizem Cd) 300 Mg Cap.er.24h, 300 MG PO DAILY, (Reported) Entered as Reported by: SHARLENE LACEY on 03/26/20 104 Ergocalciferol (Vitamin D2) (Vitamin D2) 1,250 Mcg (29577 Unit) Capsule, 1,250 MCG PO MONTHLY, (Reported) Entered as Reported by: HORTENCIA BRAND on 05/12/22 09 Furosemide (Furosemide) 20 Mg Tablet, 20 MG PO DAILY PRN for FLUID RETENTION, (Reported) Entered as Reported by: HORTENCIA BRAND on 05/12/22 09 Krill/Om-3/Dha/Epa/Phospho/Ast (Krill Oil 500 mg Softgel) 500-150-45 Capsule, 1 EACH PO DAILY, (Reported) Entered as Reported by: HORTENCIA BRAND on 05/12/22 09 Levothyroxine Sodium (Levothyroxine) 50 Mcg Capsule, 50 MCG PO DAILY, (Reported) Entered as Reported by: ALVINA MANDUJANO on 07/08/21 1215 Loratadine (Loratadine) 10 Mg Tablet, 10 MG PO DAILY PRN for ALLERGIES, (Reported) Entered as Reported by: ALVINA MANDUJANO on 07/08/21 1216 Losartan Potassium (Losartan Potassium) 25 Mg Tablet, 25 MG PO DAILY, (Reported) Entered as Reported by: SHARLENE LACEY on 03/26/20 105 Multivitamin (Multivitamin) 1 Each Tablet, 1 EACH PO DAILY, (Reported) Entered as Reported by: SHARLENE LACEY on 03/26/20 105 Ondansetron (Ondansetron Odt) 4 Mg Tab.rapdis, 4 MG SL Q4H PRN for NAUSEA/VOMITING Prescribed by: JEN CAVAZOS on 12/08/222027 Pantoprazole Sodium (Pantoprazole Sodium) 40 Mg Tablet.dr, 40 MG PO BID, (Reported) Entered as Reported by: HORTNECIA BRAND on 05/12/22 09 Potassium Chloride (Potassium Chloride) 10 Meq Tab.er.prt, 10 MEQ PO DAILY PRN for FLUID RETENTION, (Reported) Entered as Reported by: HORTENCIA BRAND on 05/12/22 0907 Tramadol HCl (Tramadol HCl) 50 Mg Tablet, 50 MG PO Q6H Prescribed by: CECILIA OWENS on 12/13/22 1656 Review of Systems Constitutional: No chills, No diaphoresis, No fever, No malaise, No weakness EENTM: No hearing loss, No ear pain, No blurred vision Respiratory: No cough, No dyspnea on exertion Cardiovascular: No chest pain Gastrointestinal: No abdominal pain, No diarrhea, No nausea Genitourinary: No decreased output, No discharge Musculoskeletal: No back pain, No joint pain, No joint swelling, No muscle pain; neck pain Skin: No change in color, No change in hair/nails All Other Systems Reviewed Negative Unless Noted: Yes Past Jobedme-Uvejus-Qwkued Hx Patient Social History Tobacco Use?: No Substance use?: No Alcohol Use?: No Pt feels they are or have been: No Immunizations Up To Date First/Initial COVID19 Vaccinat: JULY 2020 Second COVID19 Vaccination Andrey: JULY 2020 Third COVID19 Vaccination Date: MARCH 2021 Seasonal Allergies Seasonal Allergies: No Past Medical History Surgery/Hospitalization HX: MED. HX.-A FIB, COPD, AND HTN. SURG. HX- HYST., NODULE REMOVAL FROM THROAT. Surgeries: Yes (THROAT, THYROID SURG) Hysterectomy, Thyroidectomy Respiratory: Yes COPD Cardiac: Yes (A-FIB) Atrial Fibrillation, Hypertension Neurological: No Female Reproductive Disorders: Denies Sexually Transmitted Disease: No HIV/AIDS: No Gastrointestinal: Yes (DIVERTICULITIS, FREQ LOOSE STOOLS) Diverticulosis, Hiatal Hernia Musculoskeletal: No Endocrine: No HEENT: No Cancer: No Psychosocial: No Integumentary: Yes Psoriasis Blood Disorders: No Family Medical History No Pertinent Family Hx Physical Exam Vital Signs Vital Signs - First Documented 12/13/22 16:09 Temp 37.1 Pulse 61 Resp 18 B/P (MAP) 149/104 (119) Pulse Ox 96 Capillary Refill : Less Than 3 Seconds Height, Weight, BMI Height: 5'1.00" Weight: 168lbs. 0.0oz. 76.844835on; 35.00 BMI Method:Stated General Appearance: No Apparent Distress HEENT: PERRL/EOMI, TMs Normal, Normal ENT Inspection, Pharynx Normal Neck: Other (Bilateral cervical paraspinal muscle tenderness. Limited side to side movement secondary to pain. No cervical midline tenderness. Flexion extension intact.) Cardiovascular: Regular Rate, Rhythm, No Edema, No Gallop, No JVD, No Murmur Respiratory: Chest Non Tender, Lungs Clear, Normal Breath Sounds, No Accessory Muscle Use, No Respiratory Distress Gastrointestinal: Normal Bowel Sounds, No Organomegaly, No Pulsatile Mass, Non Tender Genital/Rectal: Normal Genital Exam Back: Normal Inspection, No CVA Tenderness, No Vertebral Tenderness Extremity: Normal Capillary Refill, Normal Inspection, Normal Range of Motion, Non Tender Neurologic/Psychiatric: Alert, Oriented x3, No Motor/Sensory Deficits, Normal Mood/Affect, stenotype operator II-XII Norm as Tested Skin: Normal Color, Warm/Dry Progress/Results/Core Measures Results/Orders My Orders Orders - SANDEEP MUNSON Tramadol Tablet (Ultram Tablet) (12/13/22 16:26) Orphenadrine Inj (Ed Only) (Norflex Inje (12/13/22 16:30) Medications Given in ED Current Medications Medications Dose Ordered Sig/Shaila Route Start Time Stop Time Status Last Admin Dose Admin Orphenadrine Citrate 60 mg ONCE ONCE IM 12/13/22 16:30 12/13/22 16:31 DC 12/13/22 16:38 60 MG Vital Signs/I&O 12/13/22 16:09 Temp 37.1 Pulse 61 Resp 18 B/P (MAP) 149/104 (119) Pulse Ox 96 Blood Pressure Mean: 119 Departure Communication (PCP) Patient presents ED with neck pain. She states she woke up from sleeping on the couch Wednesday with pain in her neck. Pain is initially described as dull and constant with any type of movement. Sharp pain today. Patient Was seen at urgent care. Prescribed tizanidine without much improvement. She denies any falls or traumas. No fever. No upper or lower extremity numbness or tingling. No bowel or urine incontinence or saddle paresthesia. On exam she has cervical paraspinal muscle tenderness. Pain with side to side movement and limited. She has no neurological red flag findings. She afebrile. No recent URI. Recommended dose of Norflex and gave her a dose of tramadol here. She is requesting something little bit stronger than Tylenol for at home. Tizanidine is making her sleepy which suggest stopping. Suspect that this is more cervical paraspinal muscle strain secondary to sleeping awkwardly on the couch. No specific injuries suggesting a potential fracture. Did offer to get an x-ray but she states she would rather wait. No neurological red flag findings suggesting an MRI at this time. She has no headache, dizziness or visual changes. She would likely benefit with physical therapy to work on her cervical muscle. Discussed muscle rub and Heat. Would benefit with a TENS unit to help with the muscle tightness. She is tight on palpation of the neck. She agreed with a few days worth of tramadol to help until she can talk to her primary care physician. If worsening pain or any focal neural deficits strongly recommend returning back to ED. Recommend observation with the tramadol at home. Family agrees to monitor patient as they are currently at bedside. Do not take tizanidine with the medication as she is complaining that is causing her to be tired and fatigued. Impression Primary Impression: Neck pain Disposition: 01 HOME, SELF-CARE Condition: Stable Departure-Patient Inst. Decision time for Depature: 16:30 Referrals: DANIS WINTER MD (PCP/Family) Primary Care Physician Patient Instructions: Neck Pain Exercises Add. Discharge Instructions: Recommend contact your primary care physician to discuss physical therapy. If any numbness and tingling or loss of motor function in the upper extremities return back to ED. Take tramadol as needed. You may continue with the Tylenol. Recommend massaging the neck. May use topical muscle rub. Heat as well All discharge instructions reviewed with patient and/or family. Voiced understanding. Scripts Tramadol HCl (Tramadol HCl) 50 Mg Tablet 50 MG PO Q6H, #10 TAB Prov: SANDEEP MUNSON 12/13/22 SANDEEP MUNSON Dec 13, 2022 16:31
[2022-12-13] MEDS ORDERED: TRM50T PO (16:56)
== END 2022-12-13 17:06 | disposition home or self-care (01) ==
LOC: EDUNIT# 15:58 → ER 16:01
DX: M54.2 Cervicalgia (principal)
CPT/HCPCS: 99284

== ENCOUNTER 2023-01-27 10:59 | Outpatient (RCR) | payer MEDICARE ==
[~2023-01-27 10:59] MED LIST changes: +TRM50T PO
== END 2023-01-28 | disposition home or self-care (01) ==
PROVIDERS: ATTEND Nurse Practitioner Family
DX: M54.2 Cervicalgia (principal); I10 Essential (primary) hypertension

== ENCOUNTER 2023-02-18 11:30 | Outpatient (RCR) | payer MEDICARE | END 2023-02-27 | disposition home or self-care (01) | PROVIDERS: ATTEND Nurse Practitioner Family | DX: M54.2 Cervicalgia (principal) ==

== ENCOUNTER 2023-03-19 08:54 | Inpatient (IN) | payer MEDICARE ==
[~2023-03-19] VITALS: Ht 155 cm; Wt 85.0 kg
[2023-03-19] MEDS ORDERED: morphine INJ 10 MG/ML 1ML (SYR OR VIAL) IVP STA (09:05)
[2023-03-19] MEDS ORDERED: NS IV 500 ML 500 ML IV STA (09:05)
--- NOTE | 2023-03-19 09:09 | ED Abdominal Pain ---
General Chief Complaint: Abdominal/GI Problems Stated Complaint: DIVERTICULITIS Source of Information: Patient Exam Limitations: No Limitations History of Present Illness Date Seen by Provider: Mar 19, 2023 Time Seen by Provider: 08:57 Initial Comments 82-year-old female with past medical history of A-fib on Eliquis and prior diverticulitis coming in due to left lower quadrant abdominal pain. Started last night, sharp, constant, worsening. Has not taken anything for it as of yet. Has not had a real bowel movement in a couple of days which is unusual for her. Is not passing flatus this morning, did have a very small bowel movement this morning. No real nausea or vomiting associated with this. Also denies any fever, chest pain, shortness of breath, dysuria, urinary frequency, rash, vaginal bleeding or discharge, or any other concerns. Allergies and Home Medications Allergies Coded Allergies: Penicillins (Verified Allergy, Unknown, 07/02/21) amoxicillin (Unverified Allergy, Unknown, RASH, 07/31/14) Patient Home Medication List Home Medication List Reviewed: Yes Acetaminophen (Tylenol) 325 Mg Tablet, 650 MG PO Q6H PRN for PAIN-MILD (1-4), (Reported) Entered as Reported by: HORTENCIA BRAND on 05/12/22 0907 Albuterol Sulfate (Albuterol Sulfate) 0.63 Mg/3 Ml Vial.neb, 0.63 MG IH Q4H PRN for SHORTNESS OF BREATH, (Reported) Entered as Reported by: HORTENCIA BRAND on 05/12/22 0907 Apixaban (Eliquis) 5 Mg Tablet, 5 MG PO BID, (Reported) Entered as Reported by: SHARLENE LACEY on 03/26/20 1044 Calcium Carbonate (Tums) 200 Mg Calcium (500 Mg) Tab.chew, 200 MG PO HS, (Reported) Entered as Reported by: HORTENCIA BRAND on 05/12/22 0907 Dicyclomine HCl (Dicyclomine HCl) 20 Mg Tablet, 20 MG PO QIDACHS Prescribed by: ELYSSA AHN on 12/08/22 1704 Diltiazem HCl (Cardizem Cd) 300 Mg Cap.er.24h, 300 MG PO DAILY, (Reported) Entered as Reported by: SHARLENE LACEY on 03/26/20 1044 Ergocalciferol (Vitamin D2) (Vitamin D2) 1,250 Mcg (39043 Unit) Capsule, 1,250 MCG PO MONTHLY, (Reported) Entered as Reported by: HORTENCIA BRAND on 05/12/22906 Furosemide (Furosemide) 20 Mg Tablet, 20 MG PO DAILY PRN for FLUID RETENTION, (Reported) Entered as Reported by: HORTENCIA BRAND on 05/12/22 09 Krill/Om-3/Dha/Epa/Phospho/Ast (Krill Oil 500 mg Softgel) 500-150-45 Capsule, 1 EACH PO DAILY, (Reported) Entered as Reported by: HORTENCIA BRAND on 05/12/22906 Levothyroxine Sodium (Levothyroxine) 50 Mcg Capsule, 50 MCG PO DAILY, (Reported) Entered as Reported by: ALVINA MANDUJANO on 07/08/211214 Loratadine (Loratadine) 10 Mg Tablet, 10 MG PO DAILY PRN for ALLERGIES, (Reported) Entered as Reported by: ALVINA MANDUJANO on 07/08/21 121 Losartan Potassium (Losartan Potassium) 25 Mg Tablet, 25 MG PO DAILY, (Reported) Entered as Reported by: SHARLENE LACEY on 03/26/20 105 Multivitamin (Multivitamin) 1 Each Tablet, 1 EACH PO DAILY, (Reported) Entered as Reported by: SHARLENE LACEY on 03/26/20 105 Ondansetron (Ondansetron Odt) 4 Mg Tab.rapdis, 4 MG SL Q4H PRN for NAUSEA/VOMITING Prescribed by: JEN CAVAZOS on 12/08/222027 Pantoprazole Sodium (Pantoprazole Sodium) 40 Mg Tablet.dr, 40 MG PO BID, (Reported) Entered as Reported by: HORTENCIA BRAND on 05/12/22906 Potassium Chloride (Potassium Chloride) 10 Meq Tab.er.prt, 10 MEQ PO DAILY PRN for FLUID RETENTION, (Reported) Entered as Reported by: HORTENCIA BRAND on 05/12/22906 Tramadol HCl (Tramadol HCl) 50 Mg Tablet, 50 MG PO Q6H Prescribed by: CECILIA OWENS on 12/13/22 1656 Review of Systems Review of Systems Constitutional: No fever EENTM: No Symptoms Reported Respiratory: No Symptoms Reported Cardiovascular: No Symptoms Reported Gastrointestinal: See HPI Genitourinary: No Symptoms Reported Musculoskeletal: no symptoms reported Skin: no symptoms reported Psychiatric/Neurological: No Symptoms Reported Endocrine: No Symptoms Reported Hematologic/Lymphatic: No Symptoms Reported Past Oiczesh-Wgqpxe-Qhoevb Hx Patient Social History Tobacco Use?: No Immunizations Up To Date First/Initial COVID19 Vaccinat: JULY 2020 Second COVID19 Vaccination Andrey: JULY 2020 Third COVID19 Vaccination Date: MARCH 2021 Seasonal Allergies Seasonal Allergies: No Past Medical History Surgery/Hospitalization HX: MED. HX.-A FIB, COPD, AND HTN. SURG. HX- HYST., NODULE REMOVAL FROM THROAT. Surgeries: Yes (THROAT, THYROID SURG) Hysterectomy, Thyroidectomy Respiratory: Yes COPD Cardiac: Yes (A-FIB) Atrial Fibrillation, Hypertension Neurological: No Female Reproductive Disorders: Denies Sexually Transmitted Disease: No HIV/AIDS: No Gastrointestinal: Yes (DIVERTICULITIS, FREQ LOOSE STOOLS) Diverticulosis, Hiatal Hernia Musculoskeletal: No Endocrine: No HEENT: No Cancer: No Psychosocial: No Integumentary: Yes Psoriasis Blood Disorders: No Family Medical History No Pertinent Family Hx Physical Exam Vital Signs Vital Signs - First Documented 03/19/23 03/19/23 09:00 09:35 Pulse 67 B/P (MAP) 160/109 (126) Pulse Ox 95 O2 Delivery Room Air O2 Flow Rate 1.00 Capillary Refill : Height/Weight/BMI Height: 5'1.00" Weight: 168lbs. 0.0oz. [id number]; 35.00 BMI Method:Stated General Appearance: WD/WN, no apparent distress HEENT: PERRL/EOMI, normal ENT inspection, pharynx normal Neck: non-tender, full range of motion, supple, normal inspection Respiratory: chest non-tender, lungs clear, normal breath sounds, no respiratory distress, no accessory muscle use Cardiovascular: irregularly irregular Gastrointestinal: normal bowel sounds; No distended, No guarding, No rebound; tenderness Extremities: normal range of motion, non-tender, normal inspection, no calf tenderness, normal capillary refill Back: normal inspection, no CVA tenderness Neurologic/Psychiatric: no motor/sensory deficits, alert, normal mood/affect Skin: normal color, warm/dry Focused Exam Lactate Level 03/19/23 09:25: Lactic Acid Level 2.72*H Lactic Acid Level Laboratory Tests Test 03/19/23 09:25 Lactic Acid Level 2.72 MMOL/L (0.50-2.00) *H Progress/Results/Core Measures Results/Orders Lab Results Laboratory Tests Test 03/19/23 09:10 03/19/23 09:25 Range/Units White Blood Count 13.7 H 4.3-11.0 10^3/uL Red Blood Count 4.64 3.80-5.11 10^6/uL Hemoglobin 14.3 11.5-16.0 g/dL Hematocrit 43 35-52 % Mean Corpuscular Volume 93 80-99 fL Mean Corpuscular Hemoglobin 31 25-34 pg Mean Corpuscular Hemoglobin Concent 33 32-36 g/dL Red Cell Distribution Width 13.8 10.0-14.5 % Platelet Count 241 130-400 10^3/uL Mean Platelet Volume 9.3 9.0-12.2 fL Immature Granulocyte % (Auto) 0 % Neutrophils (%) (Auto) 79 H 42-75 % Lymphocytes (%) (Auto) 15 12-44 % Monocytes (%) (Auto) 5 0-12 % Eosinophils (%) (Auto) 0 0-10 % Basophils (%) (Auto) 0 0-10 % Neutrophils # (Auto) 10.9 H 1.8-7.8 10^3/uL Lymphocytes # (Auto) 2.1 1.0-4.0 10^3/uL Monocytes # (Auto) 0.6 0.0-1.0 10^3/uL Eosinophils # (Auto) 0.0 0.0-0.3 10^3/uL Basophils # (Auto) 0.0 0.0-0.1 10^3/uL Immature Granulocyte # (Auto) 0.0 0.0-0.1 10^3/uL Erythrocyte Sedimentation Rate 12 0-30 MM/HR Prothrombin Time 14.6 12.2-14.7 SEC INR Comment 1.1 0.8-1.4 Activated Partial Thromboplast Time 29 24-35 SEC Sodium Level 138 135-145 MMOL/L Potassium Level 3.4 L 3.6-5.0 MMOL/L Chloride Level 103 98-107 MMOL/L Carbon Dioxide Level 22 21-32 MMOL/L Anion Gap 13 5-14 MMOL/L Blood Urea Nitrogen 12 7-18 MG/DL Creatinine 0.86 0.60-1.30 MG/DL Estimat Glomerular Filtration Rate 67 BUN/Creatinine Ratio 14 Glucose Level 169 H 70-105 MG/DL Calcium Level 8.7 8.5-10.1 MG/DL Corrected Calcium 8.9 8.5-10.1 MG/DL Total Bilirubin 0.7 0.1-1.0 MG/DL Aspartate Amino Transf (AST/SGOT) 19 5-34 U/L Alanine Aminotransferase (ALT/SGPT) 20 0-55 U/L Alkaline Phosphatase 58 40-136 U/L C-Reactive Protein High Sensitivity 1.10 H 0.00-0.50 MG/DL Total Protein 7.2 6.4-8.2 GM/DL Albumin 3.8 3.2-4.5 GM/DL Lipase 20 8-78 U/L Lactic Acid Level 2.72 *H 0.50-2.00 MMOL/L My Orders Orders - SANDEEP MARCIAL MD Ct Abdomen/Pelvis W (03/19/23 09:05) Ed Iv/Invasive Line Start (03/19/23 09:05) Cbc And Automated Diff (03/19/23 09:05) Comprehensive Metabolic Panel (03/19/23 09:05) Hs C Reactive Protein (03/19/23 09:05) Lactic Acid Analyzer (03/19/23 09:05) Lipase (03/19/23 09:05) Protime With Inr (03/19/23 09:05) Partial Thromboplastin Time (03/19/23 09:05) Erythrocyte Sedimentation Rate (03/19/23 09:05) Monitor-Rhythm Ecg Trace Only (03/19/23 09:05) Morphine Injection (Morphine Injection (03/19/23 09:05) Ondansetron Injection (Ondansetron Inj (03/19/23 09:15) Ns Iv 500 Ml (Ns Iv 500 Ml) (03/19/23 09:05) Ua Culture If Indicated (03/19/23 09:09) Iohexol Injection (Omnipaque 350 Mg/Ml 1 (03/19/23 09:45) Received Contrast (Hold Metformin- Contr (03/19/23 09:45) Ns (Ivpb) 100 Ml (Sodium Chloride 0.9% 1 (03/19/23 09:45) Metronidazole 500mg/100ml Ivpb (Metronid (03/19/23 11:00) Cefepime Injection (Cefepime Injection) (03/19/23 11:00) Medications Given in ED Current Medications Medications Dose Ordered Sig/Shaila Route Start Time Stop Time Status Last Admin Dose Admin Iohexol 100 ml ONCE ONCE IV 03/19/23 09:45 03/19/23 09:51 DC 03/19/23 10:04 80 ML Ondansetron HCl 4 mg ONCE ONCE IVP 03/19/23 09:15 03/19/23 09:16 DC 03/19/23 09:23 4 MG Sodium Chloride 100 ml ONCE ONCE IV 03/19/23 09:45 03/19/23 09:51 DC 03/19/23 10:04 80 ML Vital Signs/I&O 03/19/23 03/19/23 09:00 09:35 Pulse 67 B/P (MAP) 160/109 (126) Pulse Ox 95 O2 Delivery Room Air Nasal Cannula O2 Flow Rate 1.00 Progress Progress Note : Progress Note 82-year-old female with above history coming in due to abdominal pain. ABCs were intact and vitals were stable on presentation. Physical exam with significant left lower quadrant tenderness, tender in other places as well, but no rebound. An IV was placed and basic labs were obtained and were significant for mild elevation of her white blood cell count, mild elevation of the lactate at 2.7, normal creatinine, slightly elevated CRP at 1.1. CT abdomen pelvis ordered and interpreted by me showing some free air and signs of colitis. The radiologist read as colitis versus diverticulitis. I consulted with Dr. Lopez, he says the free air is retroperitoneal, he would not recommend surgery at this time. He believes that this small perforation could repair on its own. She will be given cefepime and Flagyl due to allergies and needing to avoid Zosyn from her penicillin allergy. I then contacted Dr. Castaneda who will admit the patient under inpatient status for further evaluation and management. The patient received 1 dose of morphine with good pain control. Diagnostic Imaging Diagonstic Imaging: CT (abd/pelvis) Comments [facility] [place], [place] NAME: SANDRA VÁZQUEZ [facility] REC#: [id number] PT STATUS: REG ER : 1940 PHYSICIAN: SANDEEP MARCIAL MD ADMIT DATE: 03/19/23/ER Draft Date of Exam:03/19/23 CT ABDOMEN/PELVIS W PROCEDURE: CT abdomen and pelvis with contrast. TECHNIQUE: Multiple contiguous axial images were obtained through the abdomen and pelvis after administration of intravenous contrast. Auto Exposure Controls were utilized during the CT exam to meet ALARA standards for radiation dose reduction. All CT scans use one or more of the following dose optimizing techniques: automated exposure control, MA and/or KvP adjustment based on patient size and exam type or iterative reconstruction. INDICATION: Left lower quadrant pain. Patient does have a history of diverticulitis. Correlation is made with prior CT from 12/08/2022. The lung bases are clear. There is a moderate-sized hiatal hernia. The liver is without evidence of discrete mass. Gallbladder is unremarkable. Bile duct prominence noted on prior CT appears similar. The pancreas and spleen are unremarkable. No adrenal mass is detected. Large bilateral renal cysts are again noted similar to prior exam. Aorta is calcified but nonaneurysmal. Imaging of the bowel loops does show diffuse wall thickening of the colon extending from the splenic flexure to involve the majority of the descending colon. There are occasional diverticula present within the descending colon with significant diverticulosis of the sigmoid colon. There is some inflammation in the region of the splenic flexure as well as the near the junction of the descending colon and sigmoid. There is also some free air present adjacent to the pancreatic tail and extending inferiorly, posterior to the inflamed descending colon. Features are suggestive of perforated diverticulitis or perforated nonspecific colitis. No abscess formation is seen. There is no bowel obstruction identified. The bladder is unremarkable. Uterus is surgically absent. IMPRESSION: Inflammatory changes involving the descending colon with pneumoperitoneum consistent with perforated hollow viscus. Features are consistent with perforated diverticulitis/nonspecific colitis. No abscess formation or bowel obstruction is identified. Dictated on workstation # [id number] Dict: 03/19/23 1011 Trans: 03/19/23 1025 STEVEN [id number] Interpreted by: ADRIAN PRATT MD Electronically signed by: Departure Impression Primary Impression: Bowel perforation Additional Impression: Colitis Disposition: ADMITTED INPATIENT Condition: Stable Admissions Decision to Admit Reason: Admit from ER (General) Decision to Admit/Date: Mar 19, 2023 Time/Decision to Admit Time: 11:00 Departure-Patient Inst. Referrals: DANIS WINTER MD (PCP/Family) Primary Care Physician SANDEEP MARCIAL MD Mar 19, 2023 09:09
[2023-03-19 09:15] LABS: BASOPHILS % (AUTO) 0 % (0-10); EOSINOPHILS % (AUTO) 0 % (0-10); HEMATOCRIT 43 % (35-52); HEMOGLOBIN 14.3 g/dL (11.5-16.0); LYMPHOCYTES # (AUTO) 2.1 10^3/uL (1.0-4.0); LYMPHOCYTES % (AUTO) 15 % (12-44); MEAN CORPUSCULAR HEMOGLOBIN 31 pg (25-34); MEAN CORPUSCULAR HGB CONC 33 g/dL (32-36); MEAN CORPUSCULAR VOLUME 93 fL (80-99); MEAN PLATELET VOLUME 9.3 fL (9.0-12.2); MONOCYTES # (AUTO) 0.6 10^3/uL (0.0-1.0); MONOCYTES % (AUTO) 5 % (0-12); NEUTROPHILS # (AUTO) 10.9 10^3/uL (1.8-7.8); NEUTROPHILS % (AUTO) 79 % (42-75); PLATELET COUNT 241 10^3/uL (130-400); WHITE BLOOD COUNT 13.7 10^3/uL (4.3-11.0)
[2023-03-19] MEDS ORDERED: ONDANSETRON INJECTION 4 MG/2 ML (SDV) IVP ONE (09:15)
[2023-03-19 09:23] LABS: ALBUMIN 3.8 GM/DL (3.2-4.5); POTASSIUM 3.4 MMOL/L (3.6-5.0)
[2023-03-19 09:25] LABS: CALCIUM 8.7 MG/DL (8.5-10.1); INR 1.1 (0.8-1.4); PROTHROMBIN TIME PATIENT 14.6 SEC (12.2-14.7)
[2023-03-19 09:26] LABS: TOTAL PROTEIN 7.2 GM/DL (6.4-8.2)
[2023-03-19 09:28] LABS: BILIRUBIN,TOTAL 0.7 MG/DL (0.1-1.0)
[2023-03-19 09:30] LABS: CREATININE SERUM 0.86 MG/DL (0.60-1.30)
[2023-03-19 09:41] LABS: ERYTHROCYTE SEDIMENTATION RATE 12 MM/HR (0-30)
[2023-03-19] MEDS ORDERED: NS 100 ML (IVPB) BAG IV ONE (09:45)
[2023-03-19] MEDS ORDERED: HOLD METFORMIN - RECEIVED CONTRAST 20 ML VIAL IV SCH (09:45)
[2023-03-19] MEDS ORDERED: IOHEXOL 350 MG/ML 100 ML (OMNIPAQUE 350) VIAL IV ONE (09:45)
--- NOTE | 2023-03-19 10:25 | Diagnostic Imaging Report ---
PROCEDURE: CT abdomen and pelvis with contrast. TECHNIQUE: Multiple contiguous axial images were obtained through the abdomen and pelvis after administration of intravenous contrast. Auto Exposure Controls were utilized during the CT exam to meet ALARA standards for radiation dose reduction. All CT scans use one or more of the following dose optimizing techniques: automated exposure control, MA and/or KvP adjustment based on patient size and exam type or iterative reconstruction. INDICATION: Left lower quadrant pain. Patient does have a history of diverticulitis. Correlation is made with prior CT from 12/08/2022. The lung bases are clear. There is a moderate-sized hiatal hernia. The liver is without evidence of discrete mass. Gallbladder is unremarkable. Bile duct prominence noted on prior CT appears similar. The pancreas and spleen are unremarkable. No adrenal mass is detected. Large bilateral renal cysts are again noted similar to prior exam. Aorta is calcified but nonaneurysmal. Imaging of the bowel loops does show diffuse wall thickening of the colon extending from the splenic flexure to involve the majority of the descending colon. There are occasional diverticula present within the descending colon with significant diverticulosis of the sigmoid colon. There is some inflammation in the region of the splenic flexure as well as the near the junction of the descending colon and sigmoid. There is also some free air present adjacent to the pancreatic tail and extending inferiorly, posterior to the inflamed descending colon. Features are suggestive of perforated diverticulitis or perforated nonspecific colitis. No abscess formation is seen. There is no bowel obstruction identified. The bladder is unremarkable. Uterus is surgically absent. IMPRESSION: Inflammatory changes involving the descending colon with pneumoperitoneum consistent with perforated hollow viscus. Features are consistent with perforated diverticulitis/nonspecific colitis. No abscess formation or bowel obstruction is identified. Dictated by: Dictated on workstation # [id number]
[2023-03-19] MEDS ORDERED: metroNIDAZOLE 500MG/100ML IVPB 100 ML IV ONE (11:00)
[2023-03-19] MEDS ORDERED: CEFEPIME INJECTION 1,000 MG in NS (IVPB) 50 ML 50 ML IV ONE (11:00)
--- NOTE | 2023-03-19 11:27 | History & Physical ---
History of Present Illness HPI/Chief Complaint CC: Abdominal pain HPI: This is an 82yoWF clinic patient of Dr Araujo who presented to the ER with increasing abdominal pain and found to have colitis/diverticulitis along with microperforation so Dr Lopez has been consulted and she was placed on IV abx and NPO and pain control. Patient is at high risk for decompensation due to advanced age and sepsis. Source: patient Exam Limitations: no limitations Date Seen 03/19/23 Time Seen by a Provider: 14:00 Attending Physician Hailee Araujo MD PCP Admitting Physician: Attending Physician: Referring Physician Date of Admission Home Medications & Allergies Home Medications Reviewed patient Home Medication Reconciliation performed by pharmacy medication reconciliations nuclear test technician and/or nursing. Patients Allergies have been reviewed. Allergies Allergies Coded Allergies Penicillins (Verified Allergy, Unknown, 07/02/21) amoxicillin (Unverified Allergy, Unknown, RASH, 07/31/14) Past Pcxkqlg-Hzngsf-Siftqy Hx Past Med/Social Hx: Reviewed Nursing Past Med/Soc Hx, Reviewed and Corrections made Patient Social History Marrital Status: single Employed/Student: retired Smoking Status: Never a Smoker Former Smoker, Quit: May 07, 2021 2nd Hand Smoke Exposure: No Recent Hopitalizations: No Immunizations Up To Date Date of Influenza Vaccine: Mar 07, 2021 Seasonal Allergies Seasonal Allergies: No Past Medical History Surgeries: Hysterectomy, Thyroidectomy Cardiac: Atrial Fibrillation, Hypertension Sexually Transmitted Disease: No HIV/AIDS: No Female Reproductive Disorders: Denies Gastrointestinal: Diverticulosis, Hiatal Hernia Skin/Integumentary: Psoriasis History of Blood Disorders: No Family History No Pertinent Family Hx Review of Systems Constitutional: see HPI, fever, malaise, weakness Gastrointestinal: abdominal pain, loss of appetite, vomiting Physical Exam Physical Exam Vital Signs Vital Signs - First Documented 03/19/23 03/19/23 03/19/23 09:00 09:35 15:01 Pulse 67 B/P (MAP) 160/109 (126) Pulse Ox 95 O2 Delivery Room Air O2 Flow Rate 1.00 FiO2 24 Capillary Refill : Height, Weight, BMI Height: 5'1.00" Weight: 168lbs. 0.0oz. 76.096829wu; 35.00 BMI Method:Stated General Appearance: WD/WN, Anxious, Chronically ill, Mild Distress Eyes: Bilateral Eye Normal Inspection, Bilateral Eye PERRL HEENT: PERRL/EOMI, Normal ENT Inspection, Pharynx Normal Neck: Full Range of Motion, Normal Inspection, Non Tender, Supple, Carotid Bruit Respiratory: Chest Non Tender, Lungs Clear, Normal Breath Sounds, No Accessory Muscle Use, No Respiratory Distress Cardiovascular: Regular Rate, Rhythm, No Edema, No Gallop, No JVD, No Murmur, Normal Peripheral Pulses Gastrointestinal: Normal Bowel Sounds, No Organomegaly, No Pulsatile Mass, Abnormal Bowel Sounds, Tenderness (mild LLQ) Back: Normal Inspection, No CVA Tenderness, No Vertebral Tenderness Extremity: Normal Capillary Refill, Normal Inspection, Normal Range of Motion, Non Tender, No Calf Tenderness, No Pedal Edema Neurologic/Psychiatric: Alert, Oriented x3, No Motor/Sensory Deficits, Normal Mood/Affect Skin: Normal Color, Warm/Dry Lymphatic: No Adenopathy Results Results/Procedures Labs Laboratory Tests 03/19/23 09:10 Patient resulted labs reviewed. Assessment/Plan Admission Diagnosis Assessment: Acute abdominal pain with colitis/diverticulitis with microperforation Sepsis AF OAC-holding in case OR needed HTN Advanced age Plan: Pain control NPO IVF IV abx Admission Status: Inpatient Order (span 2 midnights) Reason for Inpatient Admission: sepsis with perforation MARYAM JUARES DO Mar 19, 2023 11:27
[2023-03-19 12:00] VITALS: BP 151/70
[2023-03-19] MEDS ORDERED: ANTACID SUSPENSION 30 ML UDC PO PRN (13:00)
[2023-03-19] MEDS ORDERED: ONDANSETRON INJECTION 4 MG/2 ML (SDV) IV PRN (13:00)
[2023-03-19] MEDS ORDERED: ONDANSETRON 4 MG ORAL DISSOLVE TABLET PO PRN (13:00)
[2023-03-19] MEDS ORDERED: CALCIUM CARBONATE 500 MG CHEW TABLET PO PRN (13:00)
[2023-03-19] MEDS ORDERED: MELATONIN 3 MG TABLET PO PRN (13:00)
[2023-03-19] MEDS ORDERED: HYDROmorphone INJECTION 2 MG/ML VIAL IV PRN (13:00)
[2023-03-19] MEDS ORDERED: BISACODYL 10 MG SUPPOSITORY PR PRN (13:00)
[2023-03-19] MEDS ORDERED: diphenhydrAMINE 25 MG TABLET PO PRN (13:00)
[2023-03-19] MEDS ORDERED: diphenhydrAMINE INJ 50 MG/ML VIAL IVP PRN (13:00)
[2023-03-19] MEDS ORDERED: MILK OF MAGNESIA 400 MG/5 ML 30 ML UDC PO PRN (13:00)
[2023-03-19] MEDS ORDERED: LACTULOSE SYRUP 10GM/15ML 30ML UDC PO PRN (13:00)
--- NOTE | 2023-03-19 13:04 | Consultation - Surgery ---
AGUSTIN CAMARENA 03/19/23 1304: History of Present Illness History of Present Illness Patient Consulted On(dominic/time) 03/19/23 11:53 Date Seen by Provider: Mar 19, 2023 Time Seen by Provider: 12:00 Reason for Visit: Abdmoinal Pain History of Present Illness Janet Williamson with a history of Afib and diverticulitis presented to the emergency department today for abdominal pain. Patient describes yesterday only noticing some excess gas but no abdominal pain when she went to bed but overnight started developing some abdominal pain overnight. When she woke up this morning, the pain increased and was a 6/10 when she presented. She had a hard time describing the type of pain but says it was constant and located in her LLQ but denies sharp, dull or burning feeling. The patient's last normal bowel movement was 2-3 days ago and since she has only passed a quarter sized stool. She is not having any nausea or vomiting. She has felt flushed since this morning. She has felt similar symptoms in 2004 or 2005 where she was originally diagnosed with diverticulitis with perforation that did not require surgery. Currently her pain is 2/10 and she feels like her pain is well controlled. Patient last colonoscopy was July 2021 and patient didn't recall any findings of diverticula but she did have some polyps that required followup in 3 years. Patient has not been able to urinate since being admitted. Allergies and Home Medications Allergies Coded Allergies: Penicillins (Verified Allergy, Unknown, 07/02/21) amoxicillin (Unverified Allergy, Unknown, RASH, 07/31/14) Patient Home Medication List Acetaminophen (Tylenol) 325 Mg Tablet, 650 MG PO Q6H PRN for PAIN-MILD (1-4), (Reported) Entered as Reported by: HORTENCIA BRAND on 05/12/22 0907 Albuterol Sulfate (Albuterol Sulfate) 0.63 Mg/3 Ml Vial.neb, 0.63 MG IH Q4H PRN for SHORTNESS OF BREATH, (Reported) Entered as Reported by: HORTENCIA BRAND on 05/12/22 0907 Apixaban (Eliquis) 5 Mg Tablet, 5 MG PO BID, (Reported) Entered as Reported by: SHARLENE LACEY on 03/26/20 1044 Calcium Carbonate (Tums) 200 Mg Calcium (500 Mg) Tab.chew, 200 MG PO HS, (Reported) Entered as Reported by: HORTENCIA BRAND on 05/12/22 09 Dicyclomine HCl (Dicyclomine HCl) 20 Mg Tablet, 20 MG PO QIDACHS Prescribed by: ELYSSA AHN on 12/08/22 170 Diltiazem HCl (Cardizem Cd) 300 Mg Cap.er.24h, 300 MG PO DAILY, (Reported) Entered as Reported by: SHARLENE LACEY on 03/26/20 104 Ergocalciferol (Vitamin D2) (Vitamin D2) 1,250 Mcg (87260 Unit) Capsule, 1,250 MCG PO MONTHLY, (Reported) Entered as Reported by: HORTENCIA BRAND on 05/12/22 09 Furosemide (Furosemide) 20 Mg Tablet, 20 MG PO DAILY PRN for FLUID RETENTION, (Reported) Entered as Reported by: HORTENCIA BRAND on 05/12/22 09 Krill/Om-3/Dha/Epa/Phospho/Ast (Krill Oil 500 mg Softgel) 500-150-45 Capsule, 1 EACH PO DAILY, (Reported) Entered as Reported by: HORTENCIA BRAND on 05/12/22 09 Levothyroxine Sodium (Levothyroxine) 50 Mcg Capsule, 50 MCG PO DAILY, (Reported) Entered as Reported by: ALVINA MANDUJANO on 07/08/21 1215 Loratadine (Loratadine) 10 Mg Tablet, 10 MG PO DAILY PRN for ALLERGIES, (Reported) Entered as Reported by: ALVINA MANDUJANO on 07/08/21 121 Losartan Potassium (Losartan Potassium) 25 Mg Tablet, 25 MG PO DAILY, (Reported) Entered as Reported by: SHARLENE LACEY on 03/26/20 105 Multivitamin (Multivitamin) 1 Each Tablet, 1 EACH PO DAILY, (Reported) Entered as Reported by: SHARLENE LACEY on 03/26/20 105 Ondansetron (Ondansetron Odt) 4 Mg Tab.rapdis, 4 MG SL Q4H PRN for NAUSEA/VOMITING Prescribed by: JEN CAVAZOS on 12/08/222027 Pantoprazole Sodium (Pantoprazole Sodium) 40 Mg Tablet.dr, 40 MG PO BID, (Reported) Entered as Reported by: HORTENCIA BRAND on 05/12/22906 Potassium Chloride (Potassium Chloride) 10 Meq Tab.er.prt, 10 MEQ PO DAILY PRN for FLUID RETENTION, (Reported) Entered as Reported by: HORTENCIA BRAND on 05/12/22906 Tramadol HCl (Tramadol HCl) 50 Mg Tablet, 50 MG PO Q6H Prescribed by: CECILIA OWENS on 12/13/22 0367 Past Aejreeg-Erxlmy-Inhkix Hx Patient Social History Smoking Status: Former Smoker Former Smoker, Quit: May 07, 2021 (was 1/2 PPD prior ) 2nd Hand Smoke Exposure: No Recent Hopitalizations: No Alcohol Use?: No (quit in 2010 but prior drank 2-3 drinks per day) Immunizations Up To Date Date of Influenza Vaccine: Mar 07, 2021 Seasonal Allergies Seasonal Allergies: No Surgeries History of Surgeries: Yes (THROAT, THYROID SURG) Surgeries: Hysterectomy Respiratory History of Respiratory Disorde: Yes Respiratory Disorders: COPD Cardiovascular History of Cardiac Disorders: Yes (A-FIB) Cardiac Disorders: Atrial Fibrillation, Hypertension Neurological History of Neurological Disord: No Reproductive System Sexually Transmitted Disease: No HIV/AIDS: No Female Reproductive Disorders: Denies Gastrointestinal History of Gastrointestinal Di: Yes (DIVERTICULITIS) Gastrointestinal Disorders: Diverticulosis, Hiatal Hernia Musculoskeletal History of Musculoskeletal Dis: No Endocrine History of Endocrine Disorders: Yes Endocrine Disorders: Hypothyroidsim (after requiring radioactive iodine therapy ) HEENT History of HEENT Disorders: No Cancer History of Cancer: No Psychosocial History of Psychiatric Problem: No Integumentary History of Skin or Integumenta: No Blood Transfusions History of Blood Disorders: No Family Medical History Significant Family History: Cancer (brest cancer in mom) Review of Systems-General Constitutional: No chills; dizziness; No fever EENTM: No blurred vision, No double vision, No eye pain Respiratory: No cough; short of breath (with pain medications ) Cardiovascular: No chest pain, No edema, No palpitations Gastrointestinal: abdominal pain (LLQ), constipation, heartburn; No nausea, No vomiting Genitourinary: other (Hasnt been able to urinate due to paruresis) Physical Exam-General Problems Physical Exam Vital Signs Vital Signs - First Documented 03/19/23 03/19/23 09:00 09:35 Pulse 67 B/P (MAP) 160/109 (126) Pulse Ox 95 O2 Delivery Room Air O2 Flow Rate 1.00 Capillary Refill : General Appearance: WD/WN, no apparent distress HEENT: PERRL/EOMI; No pharyngeal erythema Neck: non-tender, supple Respiratory: normal breath sounds, no respiratory distress, no accessory muscle use Cardiovascular: bradycardia (44 bpm patient seemed very relaxed on pain medication); No irregularly irregular (hard to assess with bradycardia) Peripheral Pulses: 2+ Dorsalis Pedis (R), 2+ Left Dors-Pedis (L), 2+ Radial Pulses (R), 2+ Radial Pulses (L) Gastrointestinal: normal bowel sounds, soft, no organomegaly, tenderness (LLQ) Extremities: non-tender, pedal edema (chronic edema in lower extremities) Neurologic/Psychiatric: alert Skin: normal color, warm/dry Lymphatic: no adenopathy (cervical or supraclavicular ) Data Review Labs Laboratory Tests 03/19/23 09:10: White Blood Count 13.7H, Red Blood Count 4.64, Hemoglobin 14.3, Hematocrit 43, Mean Corpuscular Volume 93, Mean Corpuscular Hemoglobin 31, Mean Corpuscular Hemoglobin Concent 33, Red Cell Distribution Width 13.8, Platelet Count 241, Mean Platelet Volume 9.3, Immature Granulocyte % (Auto) 0, Neutrophils (%) (Auto) 79H, Lymphocytes (%) (Auto) 15, Monocytes (%) (Auto) 5, Eosinophils (%) (Auto) 0, Basophils (%) (Auto) 0, Neutrophils # (Auto) 10.9H, Lymphocytes # (Auto) 2.1, Monocytes # (Auto) 0.6, Eosinophils # (Auto) 0.0, Basophils # (Auto) 0.0, Immature Granulocyte # (Auto) 0.0, Erythrocyte Sedimentation Rate 12, Prothrombin Time 14.6, INR Comment 1.1, Activated Partial Thromboplast Time 29, Sodium Level 138, Potassium Level 3.4L, Chloride Level 103, Carbon Dioxide Level 22, Anion Gap 13, Blood Urea Nitrogen 12, Creatinine 0.86, Estimat Glomerular Filtration Rate 67, BUN/Creatinine Ratio 14, Glucose Level 169H, Calcium Level 8.7, Corrected Calcium 8.9, Total Bilirubin 0.7, Aspartate Amino Transf (AST/SGOT) 19, Alanine Aminotransferase (ALT/SGPT) 20, Alkaline Phosphatase 58, C-Reactive Protein High Sensitivity 1.10H, Total Protein 7.2, Albumin 3.8, Lipase 20 03/19/23 09:25: Lactic Acid Level 2.72*H Radiology CT abdomen pelvis 03/19 IMPRESSION: Inflammatory changes involving the descending colon with pneumoperitoneum consistent with perforated hollow viscus. Features are consistent with perforated diverticulitis/nonspecific colitis. No abscess formation or bowel obstruction is identified. Assessment/Plan Assessment/Plan Assessment/Plan perforated diverticulitis with retroperitoneal air and inflammation of the descending colon Abdominal Pain GERD HTN Hypothyroidism Afib Plan Make patient NPO Start IV antibiotics Continue Pain medications Hold Elequis but can start other home medications Clinical Quality Measures DVT/VTE Risk/Contraindication: Contraindications-Pharm: Other *list below* Other: poss surgery GENEVIEVE VILLAR DO 03/19/23 1451: History of Present Illness History of Present Illness Time Seen by Provider: 12:33 History of Present Illness Surgery asked to consult regarding bowel perforation. HPI per ED: 82-year-old female with past medical history of A-fib on Eliquis and prior diverticulitis coming in due to left lower quadrant abdominal pain. Started last night, sharp, constant, worsening. Has not taken anything for it as of yet. Has not had a real bowel movement in a couple of days which is unusual for her. Is not passing flatus this morning, did have a very small bowel movement this morning. No real nausea or vomiting associated with this. Also denies any fever, chest pain, shortness of breath, dysuria, urinary frequency, rash, vaginal bleeding or discharge, or any other concerns. When I spoke to pt this afternoon, she was sleepy "because this pain medicine really worked". Pain was well controlled and denied any nausea. Stated she has had nothing like this since 2004. Allergies and Home Medications Allergies Coded Allergies: Penicillins (Verified Allergy, Unknown, 07/02/21) amoxicillin (Unverified Allergy, Unknown, RASH, 07/31/14) Patient Home Medication List Home Medication List Reviewed: Yes Acetaminophen (Tylenol) 325 Mg Tablet, 650 MG PO Q6H PRN for PAIN-MILD (1-4), (Reported) Entered as Reported by: HORTENCIA BRAND on 05/12/22 0907 Albuterol Sulfate (Albuterol Sulfate) 0.63 Mg/3 Ml Vial.neb, 0.63 MG IH Q4H PRN for SHORTNESS OF BREATH, (Reported) Entered as Reported by: HORTENCIA BRAND on 05/12/22 09 Apixaban (Eliquis) 5 Mg Tablet, 5 MG PO BID, (Reported) Entered as Reported by: SHARLENE LACEY on 03/26/20 104 Calcium Carbonate (Tums) 200 Mg Calcium (500 Mg) Tab.chew, 200 MG PO HS, (Reported) Entered as Reported by: HORTENCIA BRAND on 05/12/22 09 Dicyclomine HCl (Dicyclomine HCl) 20 Mg Tablet, 20 MG PO QIDACHS Prescribed by: ELYSSA AHN on 12/08/22 170 Diltiazem HCl (Cardizem Cd) 300 Mg Cap.er.24h, 300 MG PO DAILY, (Reported) Entered as Reported by: SHARLENE LACEY on 03/26/20 104 Ergocalciferol (Vitamin D2) (Vitamin D2) 1,250 Mcg (95765 Unit) Capsule, 1,250 MCG PO MONTHLY, (Reported) Entered as Reported by: HORTENCIA BRAND on 05/12/22 09 Furosemide (Furosemide) 20 Mg Tablet, 20 MG PO DAILY PRN for FLUID RETENTION, (Reported) Entered as Reported by: HORTENCIA BRAND on 05/12/22 09 Krill/Om-3/Dha/Epa/Phospho/Ast (Krill Oil 500 mg Softgel) 500-150-45 Capsule, 1 EACH PO DAILY, (Reported) Entered as Reported by: HORTENCIA BRAND on 05/12/22 09 Levothyroxine Sodium (Levothyroxine) 50 Mcg Capsule, 50 MCG PO DAILY, (Reported) Entered as Reported by: ALVINA MANDUJANO on 07/08/21 1215 Loratadine (Loratadine) 10 Mg Tablet, 10 MG PO DAILY PRN for ALLERGIES, (Reported) Entered as Reported by: ALVINA MANDUJANO on 07/08/21 1216 Losartan Potassium (Losartan Potassium) 25 Mg Tablet, 25 MG PO DAILY, (Reported) Entered as Reported by: SHARLENE LACEY on 03/26/20 1056 Multivitamin (Multivitamin) 1 Each Tablet, 1 EACH PO DAILY, (Reported) Entered as Reported by: SHARLENE LACEY on 03/26/20 1056 Ondansetron (Ondansetron Odt) 4 Mg Tab.rapdis, 4 MG SL Q4H PRN for NAUSEA/VOMITING Prescribed by: JEN CAVAZOS on 12/08/222027 Pantoprazole Sodium (Pantoprazole Sodium) 40 Mg Tablet.dr, 40 MG PO BID, (Reported) Entered as Reported by: HORTENCIA BRAND on 05/12/22906 Potassium Chloride (Potassium Chloride) 10 Meq Tab.er.prt, 10 MEQ PO DAILY PRN for FLUID RETENTION, (Reported) Entered as Reported by: HORTENCIA BRAND on 05/12/22906 Tramadol HCl (Tramadol HCl) 50 Mg Tablet, 50 MG PO Q6H Prescribed by: CECILIA OWENS on 12/13/22 165 Past Bgnwpdk-Ayhzam-Zmgxbx Hx Patient Social History Smoking Status: Former Smoker Surgeries History of Surgeries: Yes (colonoscopy) Surgeries: Hysterectomy Respiratory History of Respiratory Disorde: Yes Respiratory Disorders: COPD Cardiovascular History of Cardiac Disorders: Yes Cardiac Disorders: Atrial Fibrillation, Hypertension Neurological History of Neurological Disord: No Genitourinary History of Genitourinary Disor: No Gastrointestinal History of Gastrointestinal Di: Yes (DIVERTICULITIS) Gastrointestinal Disorders: Gastroesophageal Reflux, Diverticulosis, Polyps, Hiatal Hernia Endocrine History of Endocrine Disorders: Yes Endocrine Disorders: Hypothyroidsim (after requiring radioactive iodine therapy ) HEENT Loss of Vision: Bilateral Hearing Impairment: Hard of Hearing Cancer History of Cancer: No Psychosocial History of Psychiatric Problem: No Integumentary History of Skin or Integumenta: No Family Medical History Significant Family History: Cancer (brest cancer in mom) Review of Systems-General Constitutional: No chills; dizziness; No fever EENTM: No blurred vision, No double vision, No eye pain Respiratory: No cough; short of breath (with pain medications ) Cardiovascular: No chest pain, No edema, No palpitations Gastrointestinal: abdominal pain (LLQ), constipation, heartburn; No nausea, No vomiting Genitourinary: No dysuria, No frequency; other (Hasnt been able to urinate due to paruresis) Musculoskeletal: joint pain, joint swelling, muscle stiffness Skin: No change in color, No change in hair/nails Psychiatric/Neurological: Denies Anxiety, Denies Depressed, Denies Seizure, Denies Tremors Physical Exam-General Problems Physical Exam General Appearance: mild distress (secondary to pain), obese Eyes: Bilateral Eye PERRL, Bilateral Eye EOMI HEENT: pharynx normal; No scleral icterus (R), No scleral icterus (L), No pharyngeal erythema Neck: non-tender, supple Respiratory: lungs clear, normal breath sounds, no respiratory distress, no accessory muscle use Cardiovascular: regular rate, rhythm, no murmur Gastrointestinal: normal bowel sounds, soft, no organomegaly, tenderness (LLQ), hernia (umbilical) Back: no CVA tenderness, no vertebral tenderness Extremities: non-tender, pedal edema (chronic edema in lower extremities) Neurologic/Psychiatric: alert, oriented x 3 Skin: normal color, warm/dry Lymphatic: no adenopathy (cervical or supraclavicular ) Assessment/Plan Assessment/Plan Assessment/Plan Perforated diverticulitis with retroperitoneal air and inflammation of the descending colon Abdominal Pain GERD HTN Hypothyroidism Afib Make patient NPO, IV fluids, Start IV antibiotics, Continue Pain medications and anti-emetics as needed. Hold Eliquis for just in case she needs surgery, but can start other home medications. I discussed her case with ER physician, Hospitalist and reviewed the CT films myself. I talked to her about surgery, we will try to avoid if at all possible and that is what she wants. I can see retroperitoneal air on the CT and scant fluid, it is really not showing a lot of inflammation. Will monitor her pain and labs. Supervisory-Addendum Brief Verification & Attestation Participated in pt care: history, MDM, physical Personally performed: exam, history, MDM, supervision of care Care discussed with: Medical Student Procedures: n/a Verification and Attestation of Medical Student E/M Service A medical student performed and documented this service. I then reviewed and verified all information documented by the medical student and made modifications to such information, when appropriate. I personally performed a physical exam, medical decision making and then discussed any differences between the notes and made revisions as necessary to create one note. Genevieve Villar , 03/19/23 , 14:57 AGUSTIN CAMARENA Mar 19, 2023 13:04 GENEVIEVE VILLAR DO Mar 19, 2023 14:51
[2023-03-19] MEDS: PANTOPRAZOLE INJECTION 40 MG VIAL IV SCH (14:18)
[2023-03-19] MEDS: LACTATED RINGERS 1,000 ML 1,000 ML IV SCH ×2 (14:18→22:41)
[2023-03-19 15:01] VITALS: BP 151/70
[2023-03-19] MEDS ORDERED: RT-Ipratropium/Albuterol NEB 3 ML VIAL INH PRN (15:15)
[2023-03-19 16:00] VITALS: BP 116/83
[2023-03-19] MEDS ORDERED: hydrALAZINE INJECTION 20 MG/ML VIAL IV PRN (16:45)
[2023-03-19] MEDS: oxyCODONE IMMEDIATE RELEASE 5 MG TABLET PO PRN ×2 (17:49→22:41)
[2023-03-19] MEDS: POTASSIUM CL 10MEQ/50ML IVPB 50 ML IV SCH ×4 (18:37→21:34)
[2023-03-19] MEDS: RT-Ipratropium/Albuterol NEB 3 ML VIAL INH SCH (19:08)
[2023-03-19 19:22] VITALS: BP 150/85
[2023-03-19] MEDS: CEFEPIME INJECTION 1,000 MG in NS (IVPB) 50 ML 50 ML IV SCH (20:54)
[2023-03-19] MEDS ORDERED: SENNOSIDES 8.6 MG TABLET PO SCH (21:00)
[2023-03-19] MEDS ORDERED: DOCUSATE SODIUM 100 MG CAPSULE PO SCH (21:00)
[2023-03-19] MEDS: metroNIDAZOLE 500MG/100ML IVPB 100 ML IV SCH (21:27)
[2023-03-19 23:22] VITALS: BP 127/66
[2023-03-20] VITALS (7 sets, daily range): BP systolic 125–162; BP diastolic 52–82
[2023-03-20] MEDS: CEFEPIME INJECTION 1,000 MG in NS (IVPB) 50 ML 50 ML IV SCH ×3 (03:26→20:13)
[2023-03-20] MEDS: metroNIDAZOLE 500MG/100ML IVPB 100 ML IV SCH ×3 (03:27→21:08)
[2023-03-20] MEDS: LACTATED RINGERS 1,000 ML 1,000 ML IV SCH ×3 (03:29→20:12)
[2023-03-20] MEDS: oxyCODONE IMMEDIATE RELEASE 5 MG TABLET PO PRN ×2 (05:37→11:01)
[2023-03-20 05:47] LABS: BASOPHILS % (AUTO) 0 % (0-10); EOSINOPHILS # (AUTO) 0.1 10^3/uL (0.0-0.3); EOSINOPHILS % (AUTO) 1 % (0-10); HEMATOCRIT 38 % (35-52); HEMOGLOBIN 12.5 g/dL (11.5-16.0); LYMPHOCYTES # (AUTO) 2.7 10^3/uL (1.0-4.0); LYMPHOCYTES % (AUTO) 28 % (12-44); MEAN CORPUSCULAR HEMOGLOBIN 31 pg (25-34); MEAN CORPUSCULAR HGB CONC 33 g/dL (32-36); MEAN CORPUSCULAR VOLUME 96 fL (80-99); MEAN PLATELET VOLUME 9.9 fL (9.0-12.2); MONOCYTES # (AUTO) 0.8 10^3/uL (0.0-1.0); MONOCYTES % (AUTO) 8 % (0-12); NEUTROPHILS # (AUTO) 6.3 10^3/uL (1.8-7.8); NEUTROPHILS % (AUTO) 63 % (42-75); PLATELET COUNT 201 10^3/uL (130-400)
[2023-03-20 05:55] LABS: ALBUMIN 3.2 GM/DL (3.2-4.5); POTASSIUM 4.1 MMOL/L (3.6-5.0)
[2023-03-20 05:57] LABS: CALCIUM 8.2 MG/DL (8.5-10.1)
[2023-03-20 05:58] LABS: TOTAL PROTEIN 6.3 GM/DL (6.4-8.2)
[2023-03-20 06:00] LABS: BILIRUBIN,TOTAL 0.7 MG/DL (0.1-1.0)
[2023-03-20 06:01] LABS: CREATININE SERUM 0.75 MG/DL (0.60-1.30)
[2023-03-20] MEDS: RT-Ipratropium/Albuterol NEB 3 ML VIAL INH SCH (07:48)
[2023-03-20] MEDS: PANTOPRAZOLE INJECTION 40 MG VIAL IV SCH (07:51)
[2023-03-20] MEDS: ACETAMINOPHEN 325 MG TABLET PO PRN ×4 (07:51→21:07)
--- NOTE | 2023-03-20 07:59 | Progress Note - Surgery ---
AGUSTIN CAMARENA 03/20/23 0759: Subjective Date Seen by a Provider: Mar 20, 2023 Time Seen by a Provider: 09:25 Subjective/Events-last exam Janet is feeling better this morning. She now rates her pain 1-2 out of 10 and only has occasional sharp stabbing LLQ pain. She has not had a BM nor passed gas since being admitted but was able to urinate completely yesterday evening. She does complain of some new left knee pain that started this morning when she woke up. She also has some weakness of her left leg and thinks she slept wrong on it. She does have some pain to palpation of the left knee. She has never had surgery of her left knee but does get cortisone shot 5 years ago for similar knee pain. Review of Systems General: No Chills, No Night Sweats HEENT: No Head Aches, No Visual Changes, No Eye Pain, No Ear Pain Pulmonary: No Dyspnea, No Cough Cardiovascular: No: Chest Pain, Palpitations Gastrointestinal: Abdominal Pain; No: Nausea, Vomiting Genitourinary: No Dysuria Musculoskeletal: leg pain Neurological: Weakness (left leg) Focused Exam Lactate Level 03/19/23 09:25: Lactic Acid Level 2.72*H 03/19/23 12:55: Lactic Acid Level 1.20 Objective Exam Vital Signs Date Time Temp Pulse Resp B/P (MAP) Pulse Ox O2 Delivery O2 Flow Rate FiO2 03/20/23 07:50 Room Air 0.00 03/20/23 07:50 36.5 82 95 24 03/20/23 07:48 95 Nasal Cannula 1.00 03/20/23 07:16 36.5 82 18 125/81 (96) 97 Nasal Cannula 1.00 03/20/23 07:00 82 03/20/23 03:33 36.2 52 20 128/72 (90) 94 Nasal Cannula 1.50 1.50 03/20/23 01:00 75 03/19/23 23:22 36.4 59 20 127/66 (86) 96 Nasal Cannula 1.50 1.50 03/19/23 19:39 Nasal Cannula 1.50 03/19/23 19:22 36.5 55 20 150/85 (106) 90 Nasal Cannula 2.00 2.00 03/19/23 19:10 90 Room Air 2.00 03/19/23 19:00 75 10/20/23 16:00 37.3 79 20 116/83 (94) 94 Nasal Cannula 1.50 03/19/23 15:01 37.0 76 97 24 03/19/23 14:58 76 03/19/23 14:43 Nasal Cannula 1.00 03/19/23 12:00 73 159/91 97 Nasal Cannula 1.00 03/19/23 12:00 37.0 69 19 151/70 (97) 97 Nasal Cannula 1.50 03/19/23 09:35 Nasal Cannula 1.00 03/19/23 09:00 67 160/109 (126) 95 Room Air I & O 03/20/23 07:00 Intake Total 2150 ml Balance 2150 ml Capillary Refill : General Appearance: No Apparent Distress, WD/WN HEENT: PERRL/EOMI, Pharynx Normal; No Pharyngeal Erythema Neck: Non Tender, Supple Respiratory: Lungs Clear, No Accessory Muscle Use, No Respiratory Distress Cardiovascular: Regular Rate, Rhythm, No Edema, No Murmur Peripheral Pulses: 2+ Dorsalis Pedis (R), 2+ Left Dors-Pedis (L), 2+ Radial Pulses (R), 2+ Radial Pulses (L) Gastrointestinal: normal bowel sounds, soft, tenderness (some tenderness in the LLQ) Neurologic/Psychiatric: Alert, Oriented x3 Skin: Normal Color, Warm/Dry Lymphatic: No Adenopathy (cervical or supraclavicular ) Results Lab Laboratory Tests 03/19/23 09:10: White Blood Count 13.7H, Red Blood Count 4.64, Hemoglobin 14.3, Hematocrit 43, Mean Corpuscular Volume 93, Mean Corpuscular Hemoglobin 31, Mean Corpuscular Hemoglobin Concent 33, Red Cell Distribution Width 13.8, Platelet Count 241, Mean Platelet Volume 9.3, Immature Granulocyte % (Auto) 0, Neutrophils (%) (Auto) 79H, Lymphocytes (%) (Auto) 15, Monocytes (%) (Auto) 5, Eosinophils (%) (Auto) 0, Basophils (%) (Auto) 0, Neutrophils # (Auto) 10.9H, Lymphocytes # (Auto) 2.1, Monocytes # (Auto) 0.6, Eosinophils # (Auto) 0.0, Basophils # (Auto) 0.0, Immature Granulocyte # (Auto) 0.0, Erythrocyte Sedimentation Rate 12, Prothrombin Time 14.6, INR Comment 1.1, Activated Partial Thromboplast Time 29, Sodium Level 138, Potassium Level 3.4L, Chloride Level 103, Carbon Dioxide Level 22, Anion Gap 13, Blood Urea Nitrogen 12, Creatinine 0.86, Estimat Glomerular Filtration Rate 67, BUN/Creatinine Ratio 14, Glucose Level 169H, Calcium Level 8.7, Corrected Calcium 8.9, Total Bilirubin 0.7, Aspartate Amino Transf (AST/SGOT) 19, Alanine Aminotransferase (ALT/SGPT) 20, Alkaline Phosphatase 58, C-Reactive Protein High Sensitivity 1.10H, Total Protein 7.2, Albumin 3.8, Lipase 20 03/19/23 09:25: Lactic Acid Level 2.72*H 03/19/23 12:55: Lactic Acid Level 1.20 03/20/23 05:22: White Blood Count 10.0, Red Blood Count 4.02, Hemoglobin 12.5, Hematocrit 38, Mean Corpuscular Volume 96, Mean Corpuscular Hemoglobin 31, Mean Corpuscular Hemoglobin Concent 33, Red Cell Distribution Width 14.2, Platelet Count 201, Mean Platelet Volume 9.9, Immature Granulocyte % (Auto) 0, Neutrophils (%) (Auto) 63, Lymphocytes (%) (Auto) 28, Monocytes (%) (Auto) 8, Eosinophils (%) (Auto) 1, Basophils (%) (Auto) 0, Neutrophils # (Auto) 6.3, Lymphocytes # (Auto) 2.7, Monocytes # (Auto) 0.8, Eosinophils # (Auto) 0.1, Basophils # (Auto) 0.0, Immature Granulocyte # (Auto) 0.0, Sodium Level 140, Potassium Level 4.1, Chlo ride Level 108H, Carbon Dioxide Level 22, Anion Gap 10, Blood Urea Nitrogen 12, Creatinine 0.75, Estimat Glomerular Filtration Rate 79, BUN/Creatinine Ratio 16, Glucose Level 94, Calcium Level 8.2L, Corrected Calcium 8.8, Total Bilirubin 0.7, Aspartate Amino Transf (AST/SGOT) 17, Alanine Aminotransferase (ALT/SGPT) 15, Alkaline Phosphatase 51, Total Protein 6.3L, Albumin 3.2 Assessment/Plan Assessment/Plan Assessment/Plan Perforated diverticulitis with retroperitoneal air and inflammation of the descending colon Abdominal Pain Left knee pain GERD HTN Hypothyroidism Afib Plan: Encourage ambulation as tolerated and will assess leg weakness in the afternoon to see if it has resolved Continue NPO, IV fluids and IV antibiotics Continue Pain medications and anti-emetics as needed. Continue to Hold Eliquis Continue Home meds Clinical Quality Measures DVT/VTE Risk/Contraindication: Contraindications-Pharm: Other *list below* Other: poss surgery KRISTOFER LOPEZ DO 03/20/23 1052: Subjective Time Seen by a Provider: : Subjective/Events-last exam Pt seen and examined, states her abdominal pain is much better. She would like to drink some water. Review of Systems General: No Chills, No Night Sweats Pulmonary: No Dyspnea, No Cough Cardiovascular: No: Chest Pain, Palpitations Gastrointestinal: Abdominal Pain ( minimal); No: Nausea, Vomiting Musculoskeletal: leg pain Neurological: Weakness (left leg) Objective Exam General Appearance: No Apparent Distress, Obese HEENT: PERRL/EOMI Respiratory: Lungs Clear, Normal Breath Sounds, No Accessory Muscle Use, No Respiratory Distress Cardiovascular: Regular Rate, Rhythm, No Murmur Gastrointestinal: soft, distended (mostly body habitus), tenderness (some tenderness in the LLQ, decreased compared to yesterday) Neurologic/Psychiatric: Alert, Oriented x3 Assessment/Plan Assessment/Plan Assessment/Plan Perforated diverticulitis with retroperitoneal air and inflammation of the descending colon Abdominal Pain Left knee pain GERD HTN Hypothyroidism Afib Plan: Encourage ambulation as tolerated and will assess leg weakness in the afternoon to see if it has resolved Continue NPO, IV fluids and IV antibiotics. May try sips of clear liquids for dinner. Continue Pain medications and anti-emetics as needed. Continue to Hold Eliquis Continue Home meds Supervisory-Addendum Brief Verification & Attestation Participated in pt care: history, MDM, physical Personally performed: exam, history, MDM, supervision of care Care discussed with: Medical Student Procedures: n/a Verification and Attestation of Medical Student E/M Service A medical student performed and documented this service. I then reviewed and verified all information documented by the medical student and made modifications to such information, when appropriate. I personally performed a physical exam, medical decision making and then discussed any differences between the notes and made revisions as necessary to create one note. Kristofer Lopez , 03/20/23 , 10:52 AGUSTIN CAMARENA Mar 20, 2023 07:59 KRISTOFER LOPEZ DO Mar 20, 2023 10:52
[2023-03-20] MEDS ORDERED: RT-Ipratropium/Albuterol NEB 3 ML VIAL INH PRN (08:00)
--- NOTE | 2023-03-20 10:23 | Progress Note ---
Subjective Date Seen by a Provider: Mar 20, 2023 Time Seen by a Provider: 11:00 Subjective/Events-last exam Patient doing much better Pain dramatically improved Right leg decreased ROM but appears to be related to knee Reviewed meds and labs No falls Daughter at bedside Review of Systems General: Fatigue, Malaise Gastrointestinal: Abdominal Pain Focused Exam Lactate Level 03/19/23 09:25: Lactic Acid Level 2.72*H 03/19/23 12:55: Lactic Acid Level 1.20 Objective Exam Last Set of Vital Signs Vital Signs Date Time Temp Pulse Resp B/P (MAP) Pulse Ox O2 Delivery O2 Flow Rate FiO2 03/20/23 08:55 Room Air 03/20/23 07:50 0.00 03/20/23 07:50 36.5 82 95 24 03/20/23 07:16 18 125/81 (96) Capillary Refill : I&O Intake and Output0 03/20/23 00:00 Intake Total 2000 ml Balance 2000 ml Intake Oral 0 ml IV Total 2000 ml # Voids 1 Daily Weight Change No General: Alert, Oriented X3, Cooperative, No Acute Distress Lungs: Clear to Auscultation, Normal Air Movement Heart: Regular Rate, Normal S1, Normal S2, No Murmurs Psych/Mental Status: Mental Status NL, Mood NL Results Lab Laboratory Tests 03/19/23 12:55: Lactic Acid Level 1.20 03/20/23 05:22: White Blood Count 10.0, Red Blood Count 4.02, Hemoglobin 12.5, Hematocrit 38, Mean Corpuscular Volume 96, Mean Corpuscular Hemoglobin 31, Mean Corpuscular Hemoglobin Concent 33, Red Cell Distribution Width 14.2, Platelet Count 201, Mean Platelet Volume 9.9, Immature Granulocyte % (Auto) 0, Neutrophils (%) (Auto) 63, Lymphocytes (%) (Auto) 28, Monocytes (%) (Auto) 8, Eosinophils (%) (Auto) 1, Basophils (%) (Auto) 0, Neutrophils # (Auto) 6.3, Lymphocytes # (Auto) 2.7, Monocytes # (Auto) 0.8, Eosinophils # (Auto) 0.1, Basophils # (Auto) 0.0, Immature Granulocyte # (Auto) 0.0, Sodium Level 140, Potassium Level 4.1, Chloride Level 108H, Carbon Dioxide Level 22, Anion Gap 10, Blood Urea Nitrogen 12, Creatinine 0.75, Estimat Glomerular Filtration Rate 79, BUN/Creatinine Ratio 16, Glucose Level 94, Calcium Level 8.2L, Corrected Calcium 8.8, Total Bilirubin 0.7, Aspartate Amino Transf (AST/SGOT) 17, Alanine Aminotransferase (ALT/SGPT) 15, Alkaline Phosphatase 51, Total Protein 6.3L, Albumin 3.2 Assessment/Plan Assessment/Plan Assess & Plan/Chief Complaint Assessment: Acute abdominal pain with colitis/diverticulitis with microperforation Sepsis AF OAC-held in case OR needed but will restart Lovenox 1mg/kg today HTN Advanced age Plan: Pain control NPO until this evening CLD IVF IV abx Clinical Quality Measures DVT/VTE Risk/Contraindication: Contraindications-Pharm: Other *list below* Other: poss surgery MARYAM JUARES DO Mar 20, 2023 10:23
--- NOTE | 2023-03-20 10:23 | Physical Therapy Evaluation ---
PT Evaluation-General Medical Diagnosis Admission Date Mar 19, 2023 at 11:29 Medical Diagnosis: performated diverticulitis Onset Date: Mar 19, 2023 Therapy Diagnosis Therapy Diagnosis: decreased mobility Height/Weight Height (Feet): 5 Height (Inches): 1.00 Weight (Pounds): 168 Weight (Ounces): 0.0 Precautions Precautions/Isolations: Standard Precautions Weight Bear Status Full Weight Bearing Full Weight Bearing Referral Physician: Elizabet Daly MD Reason for Referral: Evaluation/Treatment Medical History Pertinent Medical History: Diverticulitis, GERD Current History Pt. presented to hospital with abdominal pain. Reviewed History: Yes Social History Home: Single Level Current Living Status: Alone Entry Into Home: Stairs With Railing PT Steps Into Home: 4 Prior Prior Level of Function SCALE: Activities may be completed with or without assistive devices. 7-Coyyahigid-zbiioku completes the activity by him/herself with no assistance from a helper. 5-Set-up or Clean-up Assistance-helper sets up or cleans up; patient completes activity. [place] assists only prior to or following the activity. 4-Supervision or Touching Assistance-helper provides verbal cues and/or touching/steadying and/or contact guard assistance as patient completes activity. Assistance may be provided throughout the activity or intermittently. 3-Partial/Moderate Assistance-helper does LESS THAN HALF the effort. [place] lifts, holds or supports trunk or limbs, but provides less than half the effort. 2-Substantial/Maximal Assistance-helper does MORE THAN HALF the effort. [place] lifts or holds trunk or limbs and provides more than half the effort. 8-Dlkupeyjl-dostfz does ALL the effort. Patient does none of the effort to complete the activity. Or, the assistance of 2 or more helpers is required for the patient to complete the activity. If activity was not attempted, code reason: 7-Patient Refused. 9-Not Applicable-not attempted and the patient did not perform the activity before the current illness, exacerbation or injury. 10-Not Attempted due to Environmental Limitations-(lack of equipment, weather restraints, etc.). 88-Not Attempted due to Medical Conditions or Safety Concerns. Bed Mobility: 6 Transfers (B,C,W/C): 6 Gait: 6 Stairs: 6 Indoor Mobility (Ambulation): Independent Stairs: Independent Prior Device Use: cane PT Evaluation-Current Subjective Pt. in bathroom with nurse aide upon arrival. She c/o L knee pain, no objective rating given. Pt/Family Goals home Objective Patient Orientation: Person, Place, Time, Situation Attachments: IV ROM/Strength ROM Upper Extremities WNL ROM Lower Extremities WNL (B), except L knee limited in knee flexion to 90 deg Strength Upper Extremities WNL Strength Lower Extremities WFL Integumentary/Posture Integumentary see nursing notes Bowel Incontinence: No Bladder Incontinence: No Posture kyphotic Neuromuscular (Tone, Coordination, Reflexes) grossly intact Sensory Vision: Functional Hearing: Functional Sensation Right Upper Extremit: Intact Sensation Left Upper Extremity: Intact Sensation Right Lower Extremit: Intact Sensation Left Lower Extremity: Intact Transfers Sit to Stand (QC): 4 Toilet Transfer (QC): 4 Gait Does the Patient Walk?: Yes Mode of Locomotion: Walk Anticipated Mode of Locomotion: Walk Walk 10 feet (QC): 4 Distance: 10 ft Gait Assistive Device: FWW Comments/Gait Description gait antalgia on the L LE Balance Sitting Static: Good Sitting Dynamic: Good Standing Static: Good Standing Dynamic: Fair Assessment/Needs Pt. is an 82 y.o. female with decreased mobility and recent onset of L knee pain. Pt. has gait antalgia on the L LE and is limited in ambulation distance at this time. Pt. is currently CGA with transfers. Pt. would benefit from skilled PT to improve safe mobility and functional strength for return home (I). Rehab Potential: Good PT Intermediate Goals Stone Splitter Goals PT Intermediate Goals Time Frame: Mar 27, 2023 Sit to Lying (QC): 6 Lying-Sitting on Side/Bed(QC): 6 Does the Patient Walk: Yes Walk 10 feet (QC): 6 Walk 50ft with 2 Turns (QC): 6 Walk 150 ft (QC): 6 PT Plan Problem List Problem List: Activity Tolerance, Functional Strength, Safety, Balance, Gait, Transfer, Bed Mobility, ROM Treatment/Plan Treatment Plan: Continue Plan of Care Treatment Plan: Bed Mobility, Concurrent Therapy, Education, Functional Activity Jolanta, Functional Strength, Gait, Safety, Therapeutic Exercise, Transfers Treatment Duration: Mar 27, 2023 Frequency: 6 times per week Estimated Hrs Per Day: .25 hour per day Patient and/or Family Agrees t: Yes Time Time In: 1005 Time Out: 1015 DATE: Mar 20, 2023 Total Billed Treatment Time: 10 Total Billed Treatment 1, EVL 10' GILDA PIERCE PT Mar 20, 2023 10:23
[2023-03-20] MEDS: ENOXAPARIN 80 MG/0.8 ML SYRINGE SC SCH ×2 (12:05→23:42)
[2023-03-21] MEDS: CEFEPIME INJECTION 1,000 MG in NS (IVPB) 50 ML 50 ML IV SCH ×3 (03:03→19:55)
[2023-03-21] MEDS: metroNIDAZOLE 500MG/100ML IVPB 100 ML IV SCH ×3 (03:03→20:21)
[2023-03-21 03:08] VITALS: BP 155/86
[2023-03-21] MEDS: LACTATED RINGERS 1,000 ML 1,000 ML IV SCH (04:36)
--- NOTE | 2023-03-21 06:17 | Progress Note ---
Subjective Date Seen by a Provider: Mar 21, 2023 Time Seen by a Provider: 09:00 Subjective/Events-last exam Patient dramatically improved No falls Moving around a bit more Hep locking IV fluid IV antibiotics maintained Could be up for discharge tomorrow Review of Systems Gastrointestinal: Abdominal Pain Focused Exam Lactate Level 03/19/23 09:25: Lactic Acid Level 2.72*H 03/19/23 12:55: Lactic Acid Level 1.20 Objective Exam Last Set of Vital Signs Vital Signs Date Time Temp Pulse Resp B/P (MAP) Pulse Ox O2 Delivery O2 Flow Rate FiO2 03/21/23 03:08 36.7 60 20 155/86 (109) 94 Room Air 03/20/23 07:50 0.00 03/20/23 07:50 24 Capillary Refill : I&O Intake and Output 03/21/23 00:00 Intake Total 2300 ml Balance 2300 ml Intake Oral 0 ml IV Total 2300 ml # Voids 9 General: Alert, Oriented X3, Cooperative, No Acute Distress Lungs: Clear to Auscultation, Normal Air Movement Heart: Regular Rate, Normal S1, Normal S2, No Murmurs Psych/Mental Status: Mental Status NL, Mood NL Results Lab Laboratory Tests 03/21/23 05:53: Assessment/Plan Assessment/Plan Assess & Plan/Chief Complaint Assessment: Acute abdominal pain with colitis/diverticulitis with microperforation Sepsis AF OAC-held in case OR needed but started Lovenox yesterday so will DC and change back to oral anticoagulation since does not appear needs surgery HTN Advanced age Plan: Pain control Advance diet per Dr. Lopez IVF Hep-Lock IV abx Clinical Quality Measures DVT/VTE Risk/Contraindication: Contraindications-Pharm: Other *list below* Other: poss surgery MARYAM JUARES DO Mar 21, 2023 06:17
[2023-03-21 06:20] LABS: BASOPHILS # (AUTO) 0.1 10^3/uL (0.0-0.1); BASOPHILS % (AUTO) 1 % (0-10); EOSINOPHILS # (AUTO) 0.2 10^3/uL (0.0-0.3); EOSINOPHILS % (AUTO) 2 % (0-10); HEMATOCRIT 36 % (35-52); LYMPHOCYTES # (AUTO) 2.1 10^3/uL (1.0-4.0); LYMPHOCYTES % (AUTO) 23 % (12-44); MEAN CORPUSCULAR HEMOGLOBIN 31 pg (25-34); MEAN CORPUSCULAR HGB CONC 34 g/dL (32-36); MEAN CORPUSCULAR VOLUME 93 fL (80-99); MEAN PLATELET VOLUME 10.1 fL (9.0-12.2); MONOCYTES # (AUTO) 0.8 10^3/uL (0.0-1.0); MONOCYTES % (AUTO) 9 % (0-12); NEUTROPHILS # (AUTO) 6.1 10^3/uL (1.8-7.8); NEUTROPHILS % (AUTO) 66 % (42-75); PLATELET COUNT 207 10^3/uL (130-400); WHITE BLOOD COUNT 9.3 10^3/uL (4.3-11.0)
[2023-03-21 06:42] LABS: ALBUMIN 3.1 GM/DL (3.2-4.5); POTASSIUM 3.3 MMOL/L (3.6-5.0)
[2023-03-21 06:44] LABS: CALCIUM 8.4 MG/DL (8.5-10.1)
[2023-03-21 06:46] LABS: BILIRUBIN,TOTAL 0.6 MG/DL (0.1-1.0)
[2023-03-21 06:48] LABS: CREATININE SERUM 0.63 MG/DL (0.60-1.30)
[2023-03-21 07:33] VITALS: BP 152/65
[2023-03-21] MEDS: PANTOPRAZOLE INJECTION 40 MG VIAL IV SCH (08:37)
[2023-03-21] MEDS ORDERED: POTASSIUM CHLORIDE 20 MEQ TABLET PO ONE (10:00)
--- NOTE | 2023-03-21 10:05 | Progress Note - Surgery ---
AGUSTIN CAMARENA 03/21/23 1005: Subjective Date Seen by a Provider: Mar 21, 2023 Time Seen by a Provider: 09:45 Subjective/Events-last exam Janet Williamson is feeling good this morning. She does not have any persistent pain but does still have some tenderness to palpation of the abdomen. She is quyen erating water and ice well but has also not had more than a cup of either. She denies any nausea of vomiting. She has not had a bowel movement but is having a normal amount of gas and feels like things are moving and that she would be able to have a BM if she had more solid foods. Her pain of her right knee is gone and she no longer has any weakness. She has been able to get up and walk to the bathroom fine and she plans on doing some more walking today. Review of Systems General: No Chills, No Night Sweats, No Fatigue HEENT: No Head Aches, No Visual Changes, No Eye Pain, No Dysphasia Pulmonary: No Dyspnea, No Cough Cardiovascular: No: Chest Pain, Palpitations Gastrointestinal: No: Nausea, Vomiting, Abdominal Pain, Constipation Genitourinary: No Dysuria Neurological: No: Weakness, Numbness Focused Exam Lactate Level 03/19/23 09:25: Lactic Acid Level 2.72*H 03/19/23 12:55: Lactic Acid Level 1.20 Objective Exam Vital Signs Date Time Temp Pulse Resp B/P (MAP) Pulse Ox O2 Delivery O2 Flow Rate FiO2 03/21/23 09:48 94 Room Air 0.00 03/21/23 07:33 37.1 74 19 152/65 (94) 94 Room Air 03/21/23 07:30 94 Room Air 0.00 03/21/23 07:00 84 03/21/23 03:08 36.7 60 20 155/86 (109) 94 Room Air 03/21/23 00:45 77 03/20/23 23:34 37.2 74 16 162/82 (108) 91 Room Air 03/20/23 21:55 Room Air 03/20/23 20:28 Nasal Cannula 03/20/23 19:10 37.1 87 18 144/78 (100) 91 Room Air 03/20/23 19:03 94 03/20/23 15:15 37.3 87 18 137/82 (100) 91 Room Air 03/20/23 12:17 89 03/20/23 11:40 36.9 76 18 149/52 (84) 91 Room Air I & O 03/21/23 07:00 Intake Total 2400 ml Balance 2400 ml Capillary Refill : General Appearance: No Apparent Distress, Obese HEENT: PERRL/EOMI Neck: Non Tender, Supple Respiratory: Lungs Clear, Normal Breath Sounds, No Accessory Muscle Use, No Respiratory Distress Cardiovascular: Regular Rate, Rhythm, No Murmur Peripheral Pulses: 3+ Dorsalis Pedis (R), 3+ Left Dors-Pedis (L); 2+ Radial Pulses (R), 2+ Radial Pulses (L) Gastrointestinal: normal bowel sounds, soft, tenderness (some tenderness in the LLQ) Neurologic/Psychiatric: Alert, Oriented x3 Skin: Normal Color, Warm/Dry Lymphatic: No Adenopathy (cervical or supraclavicular ) Results Lab Laboratory Tests 03/21/23 05:53: White Blood Count 9.3, Red Blood Count 3.82, Hemoglobin 12.0, Hematocrit 36, Mean Corpuscular Volume 93, Mean Corpuscular Hemoglobin 31, Mean Corpuscular Hemoglobin Concent 34, Red Cell Distribution Width 13.7, Platelet Count 207, Mean Platelet Volume 10.1, Immature Granulocyte % (Auto) 0, Neutrophils (%) (Auto) 66, Lymphocytes (%) (Auto) 23, Monocytes (%) (Auto) 9, Eosinophils (%) (Auto) 2, Basophils (%) (Auto) 1, Neutrophils # (Auto) 6.1, Lymphocytes # (Auto) 2.1, Monocytes # (Auto) 0.8, Eosinophils # (Auto) 0.2, Basophils # (Auto) 0.1, Immature Granulocyte # (Auto) 0.0, Sodium Level 139, Potassium Level 3.3L, Chloride Level 106, Carbon Dioxide Level 24, Anion Gap 9, Blood Urea Nitrogen 7, Creatinine 0.63, Estimat Glomerular Filtration Rate 89, BUN/Creatinine Ratio 11, Glucose Level 84, Calcium Level 8.4L, Corrected Calcium 9.1, Total Bilirubin 0.6, Aspartate Amino Transf (AST/SGOT) 24, Alanine Aminotransferase (ALT/SGPT) 21, Alkaline Phosphatase 53, Total Protein 6.0L, Albumin 3.1L Assessment/Plan Assessment/Plan Assessment/Plan Perforated diverticulitis with retroperitoneal air and inflammation of the d escending colon Abdominal Pain GERD HTN Hypothyroidism Afib Plan: Encourage ambulation as tolerated Continue CLD and advance to soft/puree diet this afternoon Continue Pain medications and anti-emetics as needed. Continue to Hold Eliquis Continue Home meds Clinical Quality Measures DVT/VTE Risk/Contraindication: Contraindications-Pharm: Other *list below* Other: poss surgery GENEVIEVE LOPEZ DO 03/21/23 1454: Subjective Time Seen by a Provider: 12:50 Subjective/Events-last exam Pt seen and examined, states she is doing better and wants to drink more. Review of Systems General: No Chills, No Night Sweats Pulmonary: No Dyspnea, No Cough Cardiovascular: No: Chest Pain, Palpitations Gastrointestinal: Abdominal Pain; No: Nausea, Vomiting Objective Exam General Appearance: No Apparent Distress, Obese HEENT: PERRL/EOMI Respiratory: Lungs Clear, Normal Breath Sounds, No Accessory Muscle Use, No Respiratory Distress Cardiovascular: Regular Rate, Rhythm, No Murmur Gastrointestinal: soft, tenderness (some tenderness in the LLQ) Neurologic/Psychiatric: Alert, Oriented x3 Assessment/Plan Assessment/Plan Assessment/Plan Perforated diverticulitis with retroperitoneal air and inflammation of the descending colon Abdominal Pain GERD HTN Hypothyroidism Afib Plan: Encourage ambulation as tolerated Continue CLD and advance to soft/puree diet this afternoon Continue Pain medications and anti-emetics as needed. Continue to Hold Eliquis Continue Home meds Supervisory-Addendum Brief Verification & Attestation Participated in pt care: history, MDM, physical Personally performed: exam, history, MDM, supervision of care Care discussed with: Medical Student Procedures: n/a Verification and Attestation of Medical Student E/M Service A medical student performed and documented this service. I then reviewed and verified all information documented by the medical student and made modifications to such information, when appropriate. I personally performed a physical exam, medical decision making and then discussed any differences between the notes and made revisions as necessary to create one note. Genevieve Lopez , 03/21/23 , 15:03 AGUSTIN CAMARENA Mar 21, 2023 10:05 GENEVIEVE LOPEZ DO Mar 21, 2023 14:54
[2023-03-21] MEDS: ACETAMINOPHEN 325 MG TABLET PO PRN (12:40)
[2023-03-21 12:41] VITALS: BP 156/86
[2023-03-21 16:13] VITALS: BP 145/84
[2023-03-21 19:38] VITALS: BP 155/74
[2023-03-21] MEDS: APIXABAN 5 MG TABLET PO SCH (20:05)
[2023-03-21 23:16] VITALS: BP 119/67
[2023-03-22] VITALS (7 sets, daily range): BP systolic 123–160; BP diastolic 60–88
[2023-03-22] MEDS: CEFEPIME INJECTION 1,000 MG in NS (IVPB) 50 ML 50 ML IV SCH ×3 (03:09→19:51)
[2023-03-22] MEDS: metroNIDAZOLE 500MG/100ML IVPB 100 ML IV SCH ×3 (03:36→19:51)
[2023-03-22] MEDS: POTASSIUM CHLORIDE 10 MEQ TABLET PO SCH (05:42)
[2023-03-22 06:15] LABS: BASOPHILS % (AUTO) 0 % (0-10); EOSINOPHILS # (AUTO) 0.1 10^3/uL (0.0-0.3); EOSINOPHILS % (AUTO) 2 % (0-10); HEMATOCRIT 37 % (35-52); HEMOGLOBIN 12.3 g/dL (11.5-16.0); LYMPHOCYTES # (AUTO) 2.1 10^3/uL (1.0-4.0); LYMPHOCYTES % (AUTO) 25 % (12-44); MEAN CORPUSCULAR HEMOGLOBIN 31 pg (25-34); MEAN CORPUSCULAR HGB CONC 34 g/dL (32-36); MEAN CORPUSCULAR VOLUME 93 fL (80-99); MEAN PLATELET VOLUME 10.2 fL (9.0-12.2); MONOCYTES # (AUTO) 0.8 10^3/uL (0.0-1.0); MONOCYTES % (AUTO) 10 % (0-12); NEUTROPHILS # (AUTO) 5.5 10^3/uL (1.8-7.8); NEUTROPHILS % (AUTO) 64 % (42-75); PLATELET COUNT 206 10^3/uL (130-400); WHITE BLOOD COUNT 8.6 10^3/uL (4.3-11.0)
[2023-03-22 06:38] LABS: ALBUMIN 3.1 GM/DL (3.2-4.5); BILIRUBIN,TOTAL 0.4 MG/DL (0.1-1.0); CALCIUM 8.2 MG/DL (8.5-10.1); CREATININE SERUM 0.66 MG/DL (0.60-1.30); TOTAL PROTEIN 6.2 GM/DL (6.4-8.2)
--- NOTE | 2023-03-22 06:50 | Progress Note - Surgery ---
ETIENNE GARCIA 03/22/23 0650: Subjective Date Seen by a Provider: Mar 22, 2023 Time Seen by a Provider: 06:25 Subjective/Events-last exam Patient is doing well and her pain is much better. States that she only took pain medication once last night and hasn't had any since. Is still having some LLQ pain that is tender on palpation. She had one BM last night, which was small and hard, reported no blood. Has been passing gas. Is on a liquid diet which she has been tolerating well. Says she is ready to have something other than water. Only other complaint is having some throat & chest discomfort after taking the potassium chloride pill. Denied fever, chills, headache, nausea, vomiting. Review of Systems General: No Chills, No Night Sweats HEENT: No Head Aches, No Visual Changes Pulmonary: No Dyspnea, No Cough Cardiovascular: No: Chest Pain, Palpitations Gastrointestinal: No: Nausea, Vomiting Genitourinary: No Dysuria; Frequency (Urinated 12 times over the night) Musculoskeletal: No: neck pain, shoulder pain Neurological: No: Weakness, Confusion Focused Exam Lactate Level 03/19/23 09:25: Lactic Acid Level 2.72*H 03/19/23 12:55: Lactic Acid Level 1.20 Objective Exam Vital Signs Date Time Temp Pulse Resp B/P (MAP) Pulse Ox O2 Delivery O2 Flow Rate FiO2 03/22/23 03:24 36.6 72 18 123/60 (81) 95 Room Air 0.00 0.00 03/22/23 01:00 70 03/21/23 23:16 36.7 66 18 119/67 (84) 96 Room Air 0.00 0.00 03/21/23 20:05 Room Air 0.00 03/21/23 19:38 36.6 72 18 155/74 (101) 96 Room Air 03/21/23 19:00 76 03/21/23 16:13 36.5 145/84 (104) Room Air 03/21/23 13:00 36.6 03/21/23 12:41 36.6 83 21 156/86 (109) 96 Room Air 03/21/23 12:26 88 03/21/23 09:48 94 Room Air 0.00 03/21/23 07:33 37.1 74 19 152/65 (94) 94 Room Air 03/21/23 07:30 94 Room Air 0.00 03/21/23 07:00 84 I & O 03/22/23 07:00 Intake Total 900 ml Balance 900 ml Capillary Refill : General Appearance: No Apparent Distress, WD/WN, Obese HEENT: PERRL/EOMI Neck: Non Tender, Supple Respiratory: No Accessory Muscle Use, No Respiratory Distress Cardiovascular: Regular Rate, Rhythm, No Murmur Peripheral Pulses: 3+ Dorsalis Pedis (R), 3+ Left Dors-Pedis (L); 2+ Radial Pulses (R), 2+ Radial Pulses (L) Gastrointestinal: soft, tenderness (Tenderness in the LLQ) Neurologic/Psychiatric: Alert, Oriented x3, Normal Mood/Affect Skin: Normal Color, Warm/Dry Results Lab Laboratory Tests 03/22/23 05:33: Sodium Level 138, Potassium Level 4.0, Chloride Level 106, Carbon Dioxide Level 18L, Anion Gap 14, Blood Urea Nitrogen 10, Creatinine 0.66, Estimat Glomerular Filtration Rate 88, BUN/Creatinine Ratio 15, Glucose Level 61L, Calcium Level 8.2L, Corrected Calcium 8.9, Total Bilirubin 0.4, Aspartate Amino Transf (AST/SGOT) 21, Alanine Aminotransferase (ALT/SGPT) 18, Alkaline Phosphatase 57, Total Protein 6.2L, Albumin 3.1L 03/22/23 06:00: White Blood Count 8.6, Red Blood Count 3.93, Hemoglobin 12.3, Hematocrit 37, Mean Corpuscular Volume 93, Mean Corpuscular Hemoglobin 31, Mean Corpuscular Hemoglobin Concent 34, Red Cell Distribution Width 13.5, Platelet Count 206, Mean Platelet Volume 10.2, Immature Granulocyte % (Auto) 0, Neutrophils (%) (Au to) 64, Lymphocytes (%) (Auto) 25, Monocytes (%) (Auto) 10, Eosinophils (%) (Auto) 2, Basophils (%) (Auto) 0, Neutrophils # (Auto) 5.5, Lymphocytes # (Auto) 2.1, Monocytes # (Auto) 0.8, Eosinophils # (Auto) 0.1, Basophils # (Auto) 0.0, Immature Granulocyte # (Auto) 0.0 Assessment/Plan Assessment/Plan Assessment/Plan Assessment: Acute abdominal pain with colitis/diverticulitis with microperforation Sepsis AF HTN Advanced age Plan: Instructed patient to take KCl with water and to sit upright for 30 minutes Pain control Advance diet Ambulate Continue IV abx Clinical Quality Measures DVT/VTE Risk/Contraindication: Contraindications-Pharm: Other *list below* Other: poss surgery NICANOR DEE DO 03/22/23 1304: Subjective Subjective/Events-last exam Pain better. Minimal in LLQ. Had a small bm. Tolerating sips of water. Denies n/v fever sweats chills shortness of breath or chest pain. Objective Exam General Appearance: No Apparent Distress, Obese HEENT: PERRL/EOMI, Normal ENT Inspection Neck: Non Tender, Supple Respiratory: Chest Non Tender, No Accessory Muscle Use, No Respiratory Distress Cardiovascular: Regular Rate, Rhythm, No JVD Gastrointestinal: soft, tenderness (Tenderness in the LLQ) Extremity: Normal Range of Motion, Non Tender Neurologic/Psychiatric: Alert, Oriented x3 Skin: Normal Color, Warm/Dry Lymphatic: No Adenopathy Assessment/Plan Assessment/Plan Assessment/Plan Acute abdominal pain with colitis/diverticulitis with microperforation Sepsis AF HTN Advanced age Pain control Liquid diet Ambulate Continue IV abx Supervisory-Addendum Brief Verification & Attestation Participated in pt care: history, MDM, physical Personally performed: exam, history, MDM, supervision of care Care discussed with: Medical Student Procedures: n/a Results interpretation: Verified all documentation Verification and Attestation of Medical Student E/M Service A medical student performed and documented this service in my presence. I reviewed and verified all information documented by the medical student and made modifications to such information, when appropriate. I personally performed the physical exam and medical decision making. Nicanor Dee, Mar 22, 2023,13:04 ETIENNE GARCIA Mar 22, 2023 06:50 NICANOR DEE DO Mar 22, 2023 13:04
[2023-03-22] MEDS: PANTOPRAZOLE INJECTION 40 MG VIAL IV SCH (08:28)
[2023-03-22] MEDS: APIXABAN 5 MG TABLET PO SCH ×2 (08:28→19:51)
--- NOTE | 2023-03-22 10:26 | Progress Note ---
ANGELES STARK 03/22/23 1026: Subjective Date Seen by a Provider: Mar 22, 2023 Time Seen by a Provider: 09:25 Subjective/Events-last exam CC: Perforated Diverticulitis HPI: Janet, 82F, notes that she is improving. She denies any pain. There is slight tenderness when she touches her stomach, but no other pain. She also notes that she had a BM that was formed and without blood. She notes that she is walking with the walker and will increase her frequency. She has no nausea, but is endorsing some hunger. She has no other concerns. Review of Systems General: No Fatigue, No Malaise HEENT: No Head Aches, No Eye Pain Pulmonary: No Cough Cardiovascular: No: Chest Pain Gastrointestinal: Abdominal Pain (LLQ); No: Nausea, Vomiting, Diarrhea, Constipation, Melena, Hematochezia Genitourinary: No Dysuria Musculoskeletal: No: back pain Neurological: No: Weakness Focused Exam Lactate Level 03/19/23 12:55: Lactic Acid Level 1.20 Objective Exam Last Set of Vital Signs Vital Signs Date Time Temp Pulse Resp B/P (MAP) Pulse Ox O2 Delivery O2 Flow Rate FiO2 03/22/23 08:54 36.9 74 21 126/73 (90) 96 Room Air 03/22/23 03:24 0.00 0.00 03/20/23 07:50 24 Capillary Refill : I&O Intake and Output 03/22/23 00:00 Intake Total 1000 ml Balance 1000 ml Intake Oral 550 ml IV Total 450 ml # Voids 12 # Bowel Movements 1 General: Alert, Oriented X3, Cooperative, No Acute Distress HEENT: Mucous Memb Moist/[place] Lungs: Clear to Auscultation Heart: Regular Rate, Normal S1, Normal S2 Abdomen: Normal Bowel Sounds, Soft, No Tenderness, No Hepatosplenomegaly, No Masses Extremities: No Edema, Normal Pulses Skin: No Significant Lesion Neuro: Normal Speech Results Lab Laboratory Tests 03/22/23 05:33: Sodium Level 138, Potassium Level 4.0, Chloride Level 106, Carbon Dioxide Level 18L, Anion Gap 14, Blood Urea Nitrogen 10, Creatinine 0.66, Estimat Glomerular Filtration Rate 88, BUN/Creatinine Ratio 15, Glucose Level 61L, Calcium Level 8.2L, Corrected Calcium 8.9, Total Bilirubin 0.4, Aspartate Amino Transf (AST/SGOT) 21, Alanine Aminotransferase (ALT/SGPT) 18, Alkaline Phosphatase 57, Total Protein 6.2L, Albumin 3.1L 03/22/23 06:00: White Blood Count 8.6, Red Blood Count 3.93, Hemoglobin 12.3, Hematocrit 37, Mean Corpuscular Volume 93, Mean Corpuscular Hemoglobin 31, Mean Corpuscular Hemoglobin Concent 34, Red Cell Distribution Width 13.5, Platelet Count 206, Mean Platelet Volume 10.2, Immature Granulocyte % (Auto) 0, Neutrophils (%) (Auto) 64, Lymphocytes (%) (Auto) 25, Monocytes (%) (Auto) 10, Eosinophils (%) (Auto) 2, Basophils (%) (Auto) 0, Neutrophils # (Auto) 5.5, Lymphocytes # (Auto) 2.1, Monocytes # (Auto) 0.8, Eosinophils # (Auto) 0.1, Basophils # (Auto) 0.0, Immature Granulocyte # (Auto) 0.0 Assessment/Plan Assessment/Plan Assess & Plan/Chief Complaint 03/22/2023: A/P -Perforated Diverticulitis * Dr. Dee management * Metronidazole, Cefepime * Advance diet per Luiz orders * Monitor for BRBPR -Sepsis * Abx -Hx of AFib * Eliquis * Monitor for change -Hypoglycemia * Clear Liquid diet -4th Floor * D/C Tele Clinical Quality Measures DVT/VTE Risk/Contraindication: Contraindications-Pharm: Other *list below* Other: poss surgery KATIE JUARES DO 03/22/23 2012: Subjective Subjective/Events-last exam Pain improved No falls Improved ambulation Getting a shower this am Review of Systems Gastrointestinal: Abdominal Pain (LLQ) Objective Exam General: Alert, Oriented X3, Cooperative, No Acute Distress Lungs: Clear to Auscultation, Normal Air Movement Psych/Mental Status: Mental Status NL, Mood NL Assessment/Plan Assessment/Plan Assess & Plan/Chief Complaint Continue diet advance Ambulate DC tomorrow? Supervisory-Addendum Brief Verification & Attestation Participated in pt care: history, MDM, physical Personally performed: exam, history, MDM, supervision of care Care discussed with: Medical Student Procedures: n/a Results interpretation: Verified all documentation Verification and Attestation of Medical Student E/M Service A medical student performed and documented this service in my presence. I reviewed and verified all information documented by the medical student and made modifications to such information, when appropriate. I personally performed the physical exam and medical decision making. Katie Juares, Mar 22, 2023,20:12 ANGELES STARK Mar 22, 2023 10:26 KATIE JUARES DO Mar 22, 2023 20:12
--- NOTE | 2023-03-22 11:46 | Physical Therapy Daily Note ---
PT Daily Note-Current Subjective Patient agrees to PT. No c/o at this time. Pain Section J - Health Conditions 1. Rarely or not at all 2. Occasionally 3. Frequently 4. Almost constantly 8. Unable to answer Pain Effect on Sleep: 1 Pain Interference with Therapy: 1 Pain Interference w/Day-to-Day: 1 Mental Status Patient Orientation: Normal For Age Attachments: IV Transfers SCALE: Activities may be completed with or without assistive devices. 0-Iqarmopezx-dujxslg completes the activity by him/herself with no assistance from a helper. 5-Set-up or Clean-up Assistance-helper sets up or cleans up; patient completes activity. Halsey assists only prior to or following the activity. 4-Supervision or Touching Assistance-helper provides verbal cues and/or touching/steadying and/or contact guard assistance as patient completes activity. Assistance may be provided throughout the activity or intermittently. 3-Partial/Moderate Assistance-helper does LESS THAN HALF the effort. Halsey lifts, holds or supports trunk or limbs, but provides less than half the effort. 2-Substantial/Maximal Assistance-helper does MORE THAN HALF the effort. Halsey lifts or holds trunk or limbs and provides more than half the effort. 9-Yttrcnbiz-pwwqkq does ALL the effort. Patient does none of the effort to complete the activity. Or, the assistance of 2 or more helpers is required for the patient to complete the activity. If activity was not attempted, code reason: 7-Patient Refused. 9-Not Applicable-not attempted and the patient did not perform the activity before the current illness, exacerbation or injury. 10-Not Attempted due to Environmental Limitations-(lack of equipment, weather restraints, etc.). 88-Not Attempted due to Medical Conditions or Safety Concerns. Lying to Sitting/Side of Bed(Q: 6 Sit to Stand (QC): 6 Chair/Dxh-so-Iqflo Xfer(QC): 6 Weight Bearing Full Weight Bearing Full Weight Bearing Gait Training Distance: 450' Walk 10 feet (QC): 6 Walk 50 ft with 2 Turns(QC): 6 Walk 150 ft (QC): 6 Gait Assistive Device: FWW safe and functional with no deviation. Assessment Patient is currently at independent [facility] with all gross motor skills safely and does not require continued skilled PT intervention at this time. Nursing instructed to have patient ambulate PRN in hallway. PT Group Home Goals Group Home Goals PT Group Home Goals Time Frame: Mar 27, 2023 Sit to Lying (QC): 6 Lying-Sitting on Side/Bed(QC): 6 Does the Patient Walk: Yes Walk 10 feet (QC): 6 Walk 50ft with 2 Turns (QC): 6 Walk 150 ft (QC): 6 PT Plan Treatment/Plan Treatment Plan: Discontinue PT Treatment Plan: Bed Mobility, Concurrent Therapy, Education, Functional Activity Jolanta, Functional Strength, Gait, Safety, Therapeutic Exercise, Transfers Treatment Duration: Mar 27, 2023 Frequency: 6 times per week Estimated Hrs Per Day: .25 hour per day Patient and/or Family Agrees t: Yes Time Time In: 1115 Time Out: 1130 DATE: Mar 22, 2023 Total Billed Treatment Time: 15 Total Billed Treatment 1 visit FA 15 min KIRIT WORKMAN PT Mar 22, 2023 11:46
[2023-03-22] MEDS ORDERED: ACET-2267 PO (12:01)
[2023-03-22] MEDS ORDERED: FAMO40TA72 PO (12:02)
[2023-03-22] MEDS ORDERED: BACI1TAB24 PO (12:02)
[2023-03-23 04:00] VITALS: BP 149/82
[2023-03-23] MEDS: metroNIDAZOLE 500MG/100ML IVPB 100 ML IV SCH ×3 (04:29→20:30)
[2023-03-23] MEDS: CEFEPIME INJECTION 1,000 MG in NS (IVPB) 50 ML 50 ML IV SCH ×3 (04:29→19:54)
[2023-03-23 05:24] LABS: BASOPHILS # (AUTO) 0.1 10^3/uL (0.0-0.1); BASOPHILS % (AUTO) 1 % (0-10); EOSINOPHILS # (AUTO) 0.2 10^3/uL (0.0-0.3); EOSINOPHILS % (AUTO) 3 % (0-10); HEMATOCRIT 38 % (35-52); HEMOGLOBIN 12.8 g/dL (11.5-16.0); LYMPHOCYTES # (AUTO) 1.9 10^3/uL (1.0-4.0); LYMPHOCYTES % (AUTO) 28 % (12-44); MEAN CORPUSCULAR HEMOGLOBIN 31 pg (25-34); MEAN CORPUSCULAR HGB CONC 34 g/dL (32-36); MEAN CORPUSCULAR VOLUME 91 fL (80-99); MEAN PLATELET VOLUME 9.4 fL (9.0-12.2); MONOCYTES # (AUTO) 0.9 10^3/uL (0.0-1.0); MONOCYTES % (AUTO) 13 % (0-12); NEUTROPHILS % (AUTO) 56 % (42-75); PLATELET COUNT 230 10^3/uL (130-400)
[2023-03-23 05:36] LABS: ALBUMIN 3.1 GM/DL (3.2-4.5)
[2023-03-23 05:37] LABS: CALCIUM 8.4 MG/DL (8.5-10.1)
[2023-03-23 05:39] LABS: TOTAL PROTEIN 6.5 GM/DL (6.4-8.2)
[2023-03-23 05:40] LABS: BILIRUBIN,TOTAL 0.4 MG/DL (0.1-1.0)
[2023-03-23 05:42] LABS: CREATININE SERUM 0.68 MG/DL (0.60-1.30)
[2023-03-23] MEDS: POTASSIUM CHLORIDE 10 MEQ TABLET PO SCH ×4 (06:01→19:54)
[2023-03-23 07:29] VITALS: BP 165/95
--- NOTE | 2023-03-23 08:01 | Progress Note - Surgery ---
ETIENNE GARCIA 03/23/23 0801: Subjective Date Seen by a Provider: Mar 23, 2023 Time Seen by a Provider: 06:40 Subjective/Events-last exam Patient is doing well and was having minimal abdominal pain. Has started eating jello & pudding and reported no pain and has tolerated it well. Has ambulated and been walking down the [place] yesterday. There is some mild tenderness in the LLQ on palpation. Denies any fever, chills, headache, nausea, vomiting. Had 1 BM and reported no blood. She was wondering if she can eat some actual food today and was asking about when she might be able to go home. Review of Systems General: No Chills, No Night Sweats HEENT: No Head Aches, No Visual Changes Pulmonary: No Dyspnea, No Cough Cardiovascular: No: Chest Pain, Palpitations Gastrointestinal: Abdominal Pain (LLQ); No: Nausea, Vomiting Musculoskeletal: No: neck pain, shoulder pain Neurological: No: Weakness, Change in speech Objective Exam Vital Signs Date Time Temp Pulse Resp B/P (MAP) Pulse Ox O2 Delivery O2 Flow Rate FiO2 03/23/23 04:00 36.6 80 18 149/82 (104) 96 Room Air 03/22/23 23:17 36.2 82 18 155/80 (105) 96 Room Air 03/22/23 20:36 81 18 127/71 (89) 97 Room Air 03/22/23 20:00 Room Air 03/22/23 19:41 36.8 50 18 160/88 (112) 97 Room Air 03/22/23 16:29 36.4 54 19 150/71 (97) 96 Room Air 03/22/23 12:16 36.7 52 18 141/60 (87) 97 Room Air 03/22/23 08:54 36.9 74 21 126/73 (90) 96 Room Air 03/22/23 08:30 Room Air I & O 03/23/23 07:00 Intake Total 2009 ml Balance 2009 ml Capillary Refill : General Appearance: No Apparent Distress, Obese Neck: Non Tender, Supple Respiratory: Chest Non Tender, No Accessory Muscle Use, No Respiratory Distress Cardiovascular: Regular Rate, Rhythm, No JVD Peripheral Pulses: 3+ Dorsalis Pedis (R), 3+ Left Dors-Pedis (L); 2+ Radial Pulses (R), 2+ Radial Pulses (L) Gastrointestinal: soft, tenderness (Tenderness in the LLQ) Neurologic/Psychiatric: Alert, Oriented x3, Normal Mood/Affect Skin: Normal Color, Warm/Dry Results Lab Laboratory Tests 03/23/23 05:15: White Blood Count 7.0, Red Blood Count 4.17, Hemoglobin 12.8, Hematocrit 38, Mean Corpuscular Volume 91, Mean Corpuscular Hemoglobin 31, Mean Corpuscular Hemoglobin Concent 34, Red Cell Distribution Width 13.8, Platelet Count 230, Mean Platelet Volume 9.4, Immature Granulocyte % (Auto) 0, Neutrophils (%) (Auto) 56, Lymphocytes (%) (Auto) 28, Monocytes (%) (Auto) 13H, Eosinophils (%) (Auto) 3, Basophils (%) (Auto) 1, Neutrophils # (Auto) 4.0, Lymphocytes # (Auto) 1.9, Monocytes # (Auto) 0.9, Eosinophils # (Auto) 0.2, Basophils # (Auto) 0.1, Immature Granulocyte # (Auto) 0.0, Sodium Level 140, Potassium Level 3.0L, Chloride Level 108H, Carbon Dioxide Level 24, Anion Gap 8, Blood Urea Nitrogen 8, Creatinine 0.68, Estimat Glomerular Filtration Rate 87, BUN/Creatinine Ratio 12, Glucose Level 111H, Calcium Level 8.4L, Corrected Calcium 9.1, Total Bilirubin 0.4, Aspartate Amino Transf (AST/SGOT) 24, Alanine Aminotransferase (ALT/SGPT) 19, Alkaline Phosphatase 53, Total Protein 6.5, Albumin 3.1L Assessment/Plan Assessment/Plan Assessment/Plan Acute abdominal pain with colitis/diverticulitis with microperforation Sepsis AF HTN Advanced age Continue current diet Ambulate Clinical Quality Measures DVT/VTE Risk/Contraindication: Contraindications-Pharm: Other *list below* Other: poss surgery NICANOR DEE DO 03/23/231931: Subjective Subjective/Events-last exam Feeling better. Minimal pain. Wanting food. Having bm. Denies nay new compla ints. Denies n/v fever sweats chills shortness of breath or chest pain. Objective Exam General Appearance: No Apparent Distress, Obese HEENT: PERRL/EOMI, Normal ENT Inspection Neck: Non Tender, Supple Respiratory: Chest Non Tender, No Accessory Muscle Use, No Respiratory Distress Cardiovascular: Regular Rate, Rhythm, No JVD Gastrointestinal: soft, tenderness (Tenderness in the LLQ minimal) Extremity: Normal Inspection, Non Tender Neurologic/Psychiatric: Alert, Oriented x3, Normal Mood/Affect Skin: Normal Color, Warm/Dry Lymphatic: No Adenopathy Assessment/Plan Assessment/Plan Assessment/Plan Acute abdominal pain with colitis/diverticulitis with microperforation Sepsis AF HTN Advanced age Advance diet Ambulate If feeling well and tolerating diet likely home tomorrow. Supervisory-Addendum Brief Verification & Attestation Participated in pt care: history, MDM, physical Personally performed: exam, history, MDM, supervision of care Care discussed with: Medical Student Procedures: n/a Results interpretation: Verified all documentation Verification and Attestation of Medical Student E/M Service A medical student performed and documented this service in my presence. I reviewed and verified all information documented by the medical student and made modifications to such information, when appropriate. I personally performed the physical exam and medical decision making. Nicanor Dee, Mar 23, 2023,19:32 ETIENNE GARCIA Mar 23, 2023 08:01 NICANOR DEE DO Mar 23, 2023 19:32
[2023-03-23] MEDS: PANTOPRAZOLE INJECTION 40 MG VIAL IV SCH (08:37)
[2023-03-23] MEDS: APIXABAN 5 MG TABLET PO SCH ×2 (08:37→19:54)
--- NOTE | 2023-03-23 10:48 | Progress Note ---
JEAN CARLOS ZAMUDIO 03/23/23 1048: Subjective Subjective/Events-last exam CC: Diverticulitis HPI: Ms. Williamson reports doing well today. She presented to the ED on 03/19/2023 for increased abdominal pain and found to have diverticulitis with microperforations. She was given metronidazole, cefepime, and pain meds, and placed NPO. Today she has no pain but states she is tender to palpation of her lower left quadrant. She reports having a bowel movement today that was slightly yellow, but denies constipation/diarrhea. She has urinated without difficulty. She has been progressing her diet, eating primarily jello and broth. She would like to advance to solid foods. She is ambulating well and would like to go home. Review of Systems General: No Chills, No Night Sweats HEENT: No Head Aches Pulmonary: No Cough Gastrointestinal: No: Nausea, Vomiting, Diarrhea, Constipation Genitourinary: No Dysuria Objective Exam Last Set of Vital Signs Vital Signs Date Time Temp Pulse Resp B/P (MAP) Pulse Ox O2 Delivery O2 Flow Rate FiO2 03/23/23 08:52 Room Air 03/23/23 07:29 36.5 82 18 165/95 (118) 96 03/22/23 03:24 0.00 0.00 03/20/23 07:50 24 Capillary Refill : I&O Intake and Output 03/23/23 00:00 Intake Total 2009 ml Balance 2009 ml Intake Oral 1860 ml IV Total 150 ml # Voids 10 # Bowel Movements 1 General: Alert, Oriented X3, No Acute Distress HEENT: Atraumatic, PERRLA Neck: Supple Lungs: Clear to Auscultation Heart: Regular Rate Abdomen: Normal Bowel Sounds Extremities: No Tenderness/Swelling Skin: No Significant Lesion Neuro: Normal Speech Psych/Mental Status: Mental Status NL Results Lab Laboratory Tests 03/23/23 05:15: White Blood Count 7.0, Red Blood Count 4.17, Hemoglobin 12.8, Hematocrit 38, Mean Corpuscular Volume 91, Mean Corpuscular Hemoglobin 31, Mean Corpuscular Hemoglobin Concent 34, Red Cell Distribution Width 13.8, Platelet Count 230, Mean Platelet Volume 9.4, Immature Granulocyte % (Auto) 0, Neutrophils (%) (Auto) 56, Lymphocytes (%) (Auto) 28, Monocytes (%) (Auto) 13H, Eosinophils (%) (Auto) 3, Basophils (%) (Auto) 1, Neutrophils # (Auto) 4.0, Lymphocytes # (Auto) 1.9, Monocytes # (Auto) 0.9, Eosinophils # (Auto) 0.2, Basophils # (Auto) 0.1, Immature Granulocyte # (Auto) 0.0, Sodium Level 140, Potassium Level 3.0L, Chloride Level 108H, Carbon Dioxide Level 24, Anion Gap 8, Blood Urea Nitrogen 8, Creatinine 0.68, Estimat Glomerular Filtration Rate 87, BUN/Creatinine Ratio 12, Glucose Level 111H, Calcium Level 8.4L, Corrected Calcium 9.1, Total Bilirubin 0.4, Aspartate Amino Transf (AST/SGOT) 24, Alanine Aminotransferase (ALT/SGPT) 19, Alkaline Phosphatase 53, Total Protein 6.5, Albumin 3.1L Assessment/Plan Assessment/Plan Assess & Plan/Chief Complaint Assessment: Ms. Williamson is an 82 y/o female presenting for diverticulitis. Plan: Diverticulitis -metronidazole, cefepime -Dr. Dee for diet recommendations- advance to soft diet today -continue monitoring for blood per rectum -if patient tolerates soft diet well, plan to d/c tomorrow A Fib Hx -Continue apixaban -monitor for changes Low Potassium - Continue Potassium Chloride Clinical Quality Measures DVT/VTE Risk/Contraindication: Contraindications-Pharm: Other *list below* Other: poss surgery KATIE JUARES DO 03/24/23 0446: Subjective Date Seen by a Provider: Mar 23, 2023 Time Seen by a Provider: 10:00 Subjective/Events-last exam Patient much improved Walking around and doing very well Advancing diet Objective Exam General: Alert, Oriented X3, Cooperative, No Acute Distress Lungs: Clear to Auscultation, Normal Air Movement Heart: Regular Rate, Normal S1, Normal S2, No Murmurs Psych/Mental Status: Mental Status NL, Mood NL Assessment/Plan Assessment/Plan Assess & Plan/Chief Complaint Advance diet Discharge home tomorrow Replace potassium Supervisory-Addendum Brief Verification & Attestation Participated in pt care: history, MDM, physical Personally performed: exam, history, MDM, supervision of care Care discussed with: Medical Student Procedures: n/a Results interpretation: Verified all documentation Verification and Attestation of Medical Student E/M Service A medical student performed and documented this service in my presence. I reviewed and verified all information documented by the medical student and made modifications to such information, when appropriate. I personally performed the physical exam and medical decision making. Katie Juares, Mar 24, 2023,04:45 JEAN CARLOS ZAMUDIO Mar 23, 2023 10:48 KATIE UJARES DO Mar 24, 2023 04:46
[2023-03-23 11:07] VITALS: BP 154/82
[2023-03-23 14:52] LABS: CLARITY,URINE SL CLOUDY; COLOR,URINE BROWN; GLUCOSE, URINE (UA) NEGATIVE (NEGATIVE); KETONES,URINE 1+ (NEGATIVE); NITRITE,URINE NEGATIVE (NEGATIVE); PH,URINE 6.5 (5-9); PROTEIN,URINE 2+ (NEGATIVE)
[2023-03-23 14:53] LABS: BACTERIA,URINE FEW /HPF; BILIRUBIN,URINE 1+ (NEGATIVE); LEUKOCYTE ESTERASE ,URINE 1+ (NEGATIVE); RBC,URINE RARE /HPF; SQUAMOUS EPITHELIAL CELL,UR 25-50 /HPF
[2023-03-23 16:01] VITALS: BP 158/64
[2023-03-23 19:37] VITALS: BP 158/87
[2023-03-23 23:35] VITALS: BP 145/85
[2023-03-24] MEDS: metroNIDAZOLE 500MG/100ML IVPB 100 ML IV SCH ×2 (04:05→12:14)
[2023-03-24] MEDS: CEFEPIME INJECTION 1,000 MG in NS (IVPB) 50 ML 50 ML IV SCH ×2 (04:06→12:13)
[2023-03-24 05:13] LABS: BASOPHILS # (AUTO) 0.1 10^3/uL (0.0-0.1); BASOPHILS % (AUTO) 1 % (0-10); EOSINOPHILS # (AUTO) 0.2 10^3/uL (0.0-0.3); EOSINOPHILS % (AUTO) 3 % (0-10); HEMATOCRIT 37 % (35-52); HEMOGLOBIN 12.2 g/dL (11.5-16.0); LYMPHOCYTES # (AUTO) 2.2 10^3/uL (1.0-4.0); LYMPHOCYTES % (AUTO) 39 % (12-44); MEAN CORPUSCULAR HEMOGLOBIN 31 pg (25-34); MEAN CORPUSCULAR HGB CONC 33 g/dL (32-36); MEAN CORPUSCULAR VOLUME 92 fL (80-99); MEAN PLATELET VOLUME 9.6 fL (9.0-12.2); MONOCYTES # (AUTO) 0.7 10^3/uL (0.0-1.0); MONOCYTES % (AUTO) 13 % (0-12); NEUTROPHILS # (AUTO) 2.5 10^3/uL (1.8-7.8); NEUTROPHILS % (AUTO) 44 % (42-75); PLATELET COUNT 238 10^3/uL (130-400); WHITE BLOOD COUNT 5.7 10^3/uL (4.3-11.0)
[2023-03-24 05:40] LABS: ALBUMIN 2.9 GM/DL (3.2-4.5); BILIRUBIN,TOTAL 0.4 MG/DL (0.1-1.0); CALCIUM 8.2 MG/DL (8.5-10.1); CREATININE SERUM 0.7 MG/DL (0.60-1.30); POTASSIUM 3.5 MMOL/L (3.6-5.0)
--- NOTE | 2023-03-24 06:45 | Progress Note - Surgery ---
ETIENNE GARCIA 03/24/23 0644: Subjective Date Seen by a Provider: Mar 24, 2023 Time Seen by a Provider: 06:10 Subjective/Events-last exam Patient is doing well and having minimal pain. Reported that she only took pain meds once last night. No BM last night but is passing gas. Had solid food last night and was able to tolerated it w/o any pain or nausea. Only time she is having pain is when her bladder is full and says its due to it pressure. She states that she is going home today. Review of Systems General: No Chills, No Night Sweats HEENT: No Head Aches, No Eye Pain Pulmonary: No Dyspnea, No Cough Cardiovascular: No: Chest Pain, Edema Gastrointestinal: Abdominal Pain; No: Nausea, Vomiting Genitourinary: No Dysuria, No Frequency Musculoskeletal: No: neck pain, shoulder pain Neurological: No: Change in speech, Confusion Objective Exam Vital Signs Date Time Temp Pulse Resp B/P (MAP) Pulse Ox O2 Delivery O2 Flow Rate FiO2 03/23/23 23:35 37.0 83 18 145/85 (105) 98 Room Air 03/23/23 20:00 Room Air 03/23/23 19:37 36.4 76 18 158/87 (110) 97 Room Air 03/23/23 16:01 36.6 68 20 158/64 (95) 96 Room Air 03/23/23 11:07 36.6 68 18 154/82 (106) 97 Room Air 03/23/23 08:52 Room Air 03/23/23 07:29 36.5 82 18 165/95 (118) 96 Room Air I & O 03/24/23 07:00 Intake Total 1570 ml Balance 1570 ml Capillary Refill : General Appearance: No Apparent Distress, WD/WN, Obese HEENT: PERRL/EOMI, Pharynx Normal Neck: Supple Respiratory: Chest Non Tender, No Accessory Muscle Use, No Respiratory Distress Cardiovascular: Regular Rate, Rhythm, No JVD Peripheral Pulses: 3+ Dorsalis Pedis (R), 3+ Left Dors-Pedis (L); 2+ Radial Pulses (R), 2+ Radial Pulses (L) Gastrointestinal: soft, tenderness (Tenderness in the LLQ minimal) Neurologic/Psychiatric: Alert, Oriented x3, Normal Mood/Affect Skin: Normal Color, Warm/Dry Results Lab Laboratory Tests 03/23/23 14:25: Urine Color BROWNH, Urine Clarity SL CLOUDY, Urine pH 6.5, Urine Specific [place] 1.020, Urine Protein 2+H, Urine Glucose (UA) NEGATIVE, Urine Ketones 1+H , Urine Nitrite NEGATIVE, Urine Bilirubin 1+H, Urine Urobilinogen 0.2, Urine Raghavendra kocyte Esterase 1+H, Urine RBC (Auto) NEGATIVE, Urine RBC RARE, Urine WBC 5-10H, Urine Squamous Epithelial Cells 25-50H, Urine Crystals NONE, Urine Bacteria FEWH , Urine Casts PRESENT, Urine Hyaline Casts 5-10H, Urine Mucus SMALLH, Urine Culture Indicated NO 03/24/23 05:00: White Blood Count 5.7, Red Blood Count 3.96, Hemoglobin 12.2, Hematocrit 37, Mean Corpuscular Volume 92, Mean Corpuscular Hemoglobin 31, Mean Corpuscular Hemoglobin Concent 33, Red Cell Distribution Width 14.0, Platelet Count 238, Mean Platelet Volume 9.6, Immature Granulocyte % (Auto) 0, Neutrophils (%) (Auto) 44, Lymphocytes (%) (Auto) 39, Monocytes (%) (Auto) 13H, Eosinophils (%) (Auto) 3, Basophils (%) (Auto) 1, Neutrophils # (Auto) 2.5, Lymphocytes # (Auto) 2.2, Monocytes # (Auto) 0.7, Eosinophils # (Auto) 0.2, Basophils # (Auto) 0.1, Immature Granulocyte # (Auto) 0.0 03/24/23 05:08: Sodium Level 141, Potassium Level 3.5L, Chloride Level 111H, Carbon Dioxide Level 23, Anion Gap 7, Blood Urea Nitrogen 8, Creatinine 0.70, Estimat Glomerular Filtration Rate 86, BUN/Creatinine Ratio 11, Glucose Level 102, Calcium Level 8.2L, Corrected Calcium 9.1, Total Bilirubin 0.4, Aspartate Amino Transf (AST/SGOT) 66H, Alanine Aminotransferase (ALT/SGPT) 35, Alkaline Phosphatase 49, Total Protein 6.0L, Albumin 2.9L Assessment/Plan Assessment/Plan Assessment/Plan Acute abdominal pain with colitis/diverticulitis with microperforation Sepsis AF HTN Advanced age Discharge today Clinical Quality Measures DVT/VTE Risk/Contraindication: Contraindications-Pharm: Other *list below* Other: poss surgery NICANOR DEE DO 03/24/23 1113: Subjective Subjective/Events-last exam Tolerating diet. Pain minimal. Having bowel function. Wanting to go home. Denies n/v fever sweats chill shortness of breath or chest pain. Objective Exam General Appearance: No Apparent Distress, WD/WN, Obese HEENT: PERRL/EOMI, Normal ENT Inspection Neck: Non Tender, Supple Respiratory: Chest Non Tender, No Accessory Muscle Use, No Respiratory Distress Cardiovascular: Regular Rate, Rhythm, No JVD Gastrointestinal: non tender, soft Extremity: Normal Inspection, Non Tender Neurologic/Psychiatric: Alert, Oriented x3, Normal Mood/Affect Skin: Normal Color, Warm/Dry Lymphatic: No Adenopathy Assessment/Plan Assessment/Plan Assessment/Plan Acute abdominal pain with colitis/diverticulitis with microperforation Sepsis AF HTN Advanced age Discussed slowly advancing diet at home. Okay to dc from surgical standpoint. Will follow up outpatient and discuss colonoscopy in near future. Any return of symptoms to be seen at that time. Supervisory-Addendum Brief Verification & Attestation Participated in pt care: history, MDM, physical Personally performed: exam, history, MDM, supervision of care Care discussed with: Medical Student Procedures: n/a Results interpretation: Verified all documentation Verification and Attestation of Medical Student E/M Service A medical student performed and documented this service in my presence. I reviewed and verified all information documented by the medical student and made modifications to such information, when appropriate. I personally performed the physical exam and medical decision making. Nicanor Dee, Mar 24, 2023,11:13 ETIENNE GARCIA Mar 24, 2023 06:44 NICANOR DEE DO Mar 24, 2023 11:13
[2023-03-24 07:30] VITALS: BP 155/82
[2023-03-24] MEDS: APIXABAN 5 MG TABLET PO SCH (08:21)
[2023-03-24] MEDS: POTASSIUM CHLORIDE 10 MEQ TABLET PO SCH (08:22)
--- NOTE | 2023-03-24 09:28 | Progress Note ---
JEAN CARLOS ZAMUDIO 03/24/2328: Progress Note CC: Diverticulitis HPI: Ms. Williamson reports doing very well today. She presented to the ED on 03/19/2023 for increased abdominal pain and found to have colitis/diverticulitis with microperforations. CT of abdomen/pelvis with contrast showed inflammatory changes involving the descending colon with pneumoperitoneum consistent with perforated hollow viscus. No abscess formation or bowel obstruction was identified. Upon admission, her lactic acid was 2.72, but has since resolved. She was given metronidazole, cefepime, and pain meds, and placed NPO. Today she has no pain and is nontender compared to yesterday. She reports having a bowel movement this morning. She has urinated without difficulty. She has progressed to a soft diet last night and this morning and is tolerating it well. She is ambulating well and feels ready to go home. She has a history of A fib that is managed with apixaban. During her hospital course, the patient's potassium was low and she has been supplemented with KCl. Patient to be discharged home today. KATIE CASTANEDA DO 03/24/232038: Supervisory-Addendum Brief Verification & Attestation Participated in pt care: history, MDM, physical Personally performed: exam, history, MDM, supervision of care Care discussed with: Medical Student Procedures: n/a Results interpretation: Verified all documentation Verification and Attestation of Medical Student E/M Service A medical student performed and documented this service in my presence. I reviewed and verified all information documented by the medical student and made modifications to such information, when appropriate. I personally performed the physical exam and medical decision making. Katie Castaneda Mar 24, 2023,20:39 JEAN CARLOS ZAMUDIO Mar 24, 2023 09:28 KATIE CASTANEDA DO Mar 24, 2023 20:39
[2023-03-24] MEDS: PANTOPRAZOLE INJECTION 40 MG VIAL IV SCH (09:38)
[2023-03-24] MEDS ORDERED: METR-145 PO (11:34)
[2023-03-24] MEDS ORDERED: CEFD300C3 PO (11:34)
--- NOTE | 2023-03-24 11:35 | Discharge Summary ---
Diagnosis/Chief Complaint Date of Admission Mar 19, 2023 at 11:29 Date of Discharge Discharge Date: Mar 24, 2023 Discharge Diagnosis Acute diverticulitis s/p microperforation AF OAC HTN Hypoakalemia Discharge Summary Discharge Physical Examination Allergies: Coded Allergies: Penicillins (Verified Allergy, Unknown, 07/02/21) amoxicillin (Unverified Allergy, Unknown, RASH, 07/31/14) Vitals & I&Os Vital Signs Date Time Temp Pulse Resp B/P (MAP) Pulse Ox O2 Delivery O2 Flow Rate FiO2 03/24/23 13:15 03/24/23 08:00 97 Room Air 0.00 03/24/23 07:30 36.8 84 16 03/20/23 07:50 24 General Appearance: Alert, Oriented X3, Cooperative Respiratory: Clear to Auscultation Cardiovascular: Regular Rate Psych/Mental Status: Mental Status NL Hospital Course Was the Problem List Reviewed?: Yes CC: Diverticulitis HPI: Ms. Williamson reports doing very well today. She presented to the ED on 03/19/2023 for increased abdominal pain and found to have colitis/diverticulitis with microperforations. CT of abdomen/pelvis with contrast showed inflammatory changes involving the descending colon with pneumoperitoneum consistent with perforated hollow viscus. No abscess formation or bowel obstruction was identified. Upon admission, her lactic acid was 2.72, but has since resolved. She was given metronidazole, cefepime, and pain meds, and placed NPO. Today she has no pain and is nontender compared to yesterday. She reports having a bowel movement this morning. She has urinated without difficulty. She has progressed to a soft diet last night and this morning and is tolerating it well. She is ambulating well and feels ready to go home. She has a history of A fib that is managed with apixaban. During her hospital course, the patient's potassium was low and she has been supplemented with KCl. Patient to be discharged home today. JEAN CARLOS ZAMUDIO Labs (last 24 hrs) Laboratory Tests 03/19/23 09:10: White Blood Count 13.7H, Red Blood Count 4.64, Hemoglobin 14.3, Hematocrit 43, Mean Corpuscular Volume 93, Mean Corpuscular Hemoglobin 31, Mean Corpuscular Hemoglobin Concent 33, Red Cell Distribution Width 13.8, Platelet Count 241, Mean Platelet Volume 9.3, Immature Granulocyte % (Auto) 0, Neutrophils (%) (Auto) 79H, Lymphocytes (%) (Auto) 15, Monocytes (%) (Auto) 5, Eosinophils (%) (Auto) 0, Basophils (%) (Auto) 0, Neutrophils # (Auto) 10.9H, Lymphocytes # (Auto) 2.1, Monocytes # (Auto) 0.6, Eosinophils # (Auto) 0.0, Basophils # (Auto) 0.0, Immature Granulocyte # (Auto) 0.0, Erythrocyte Sedimentation Rate 12, Prothrombin Time 14.6, INR Comment 1.1, Activated Partial Thromboplast Time 29, Sodium Level 138, Potassium Level 3.4L, Chloride Level 103, Carbon Dioxide Level 22, Anion Gap 13, Blood Urea Nitrogen 12, Creatinine 0.86, Estimat Glomerular Filtration Rate 67, BUN/Creatinine Ratio 14, Glucose Level 169H, Calcium Level 8.7, Corrected Calcium 8.9, Total Bilirubin 0.7, Aspartate Amino Transf (AST/SGOT) 19, Alanine Aminotransferase (ALT/SGPT) 20, Alkaline Phosphatase 58, C-Reactive Protein High Sensitivity 1.10H, Total Protein 7.2, Albumin 3.8, Lipase 20 03/19/23 09:25: Lactic Acid Level 2.72*H 03/19/23 12:55: Lactic Acid Level 1.20 03/20/23 05:22: White Blood Count 10.0, Red Blood Count 4.02, Hemoglobin 12.5, Hematocrit 38, Mean Corpuscular Volume 96, Mean Corpuscular Hemoglobin 31, Mean Corpuscular Hemoglobin Concent 33, Red Cell Distribution Width 14.2, Platelet Count 201, Mean Platelet Volume 9.9, Immature Granulocyte % (Auto) 0, Neutrophils (%) (Auto) 63, Lymphocytes (%) (Auto) 28, Monocytes (%) (Auto) 8, Eosinophils (%) (Auto) 1, Basophils (%) (Auto) 0, Neutrophils # (Auto) 6.3, Lymphocytes # (Auto) 2.7, Monocytes # (Auto) 0.8, Eosinophils # (Auto) 0.1, Basophils # (Auto) 0.0, Immature Granulocyte # (Auto) 0.0, Sodium Level 140, Potassium Level 4.1, Chloride Level 108H, Carbon Dioxide Level 22, Anion Gap 10, Blood Urea Nitrogen 12, Creatinine 0.75, Estimat Glomerular Filtration Rate 79, BUN/Creatinine Ratio 16, Glucose Level 94, Calcium Level 8.2L, Corrected Calcium 8.8, Total Bilirubin 0.7, Aspartate Amino Transf (AST/SGOT) 17, Alanine Aminotransferase (ALT/SGPT) 15, Alkaline Phosphatase 51, Total Protein 6.3L, Albumin 3.2 03/21/23 05:53: White Blood Count 9.3, Red Blood Count 3.82, Hemoglobin 12.0, Hematocrit 36, Mean Corpuscular Volume 93, Mean Corpuscular Hemoglobin 31, Mean Corpuscular Hemoglobin Concent 34, Red Cell Distribution Width 13.7, Platelet Count 207, Mean Platelet Volume 10.1, Immature Granulocyte % (Auto) 0, Neutrophils (%) (Auto) 66, Lymphocytes (%) (Auto) 23, Monocytes (%) (Auto) 9, Eosinophils (%) (Auto) 2, Basophils (%) (Auto) 1, Neutrophils # (Auto) 6.1, Lymphocytes # (Auto) 2.1, Monocytes # (Auto) 0.8, Eosinophils # (Auto) 0.2, Basophils # (Auto) 0.1, Immature Granulocyte # (Auto) 0.0, Sodium Level 139, Potassium Level 3.3L, Chloride Level 106, Carbon Dioxide Level 24, Anion Gap 9, Blood Urea Nitrogen 7, Creatinine 0.63, Estimat Glomerular Filtration Rate 89, BUN/Creatinine Ratio 11, Glucose Level 84, Calcium Level 8.4L, Corrected Calcium 9.1, Total Bilirubin 0.6, Aspartate Amino Transf (AST/SGOT) 24, Alanine Aminotransferase (ALT/SGPT) 21, Alkaline Phosphatase 53, Total Protein 6.0L, Albumin 3.1L 03/22/23 05:33: Sodium Level 138, Potassium Level 4.0, Chloride Level 106, Carbon Dioxide Level 18L, Anion Gap 14, Blood Urea Nitrogen 10, Creatinine 0.66, Estimat Glomerular Filtration Rate 88, BUN/Creatinine Ratio 15, Glucose Level 61L, Calcium Level 8.2L, Corrected Calcium 8.9, Total Bilirubin 0.4, Aspartate Amino Transf (AST/SGOT) 21, Alanine Aminotransferase (ALT/SGPT) 18, Alkaline Phosphatase 57, Total Protein 6.2L, Albumin 3.1L 03/22/23 06:00: White Blood Count 8.6, Red Blood Count 3.93, Hemoglobin 12.3, Hematocrit 37, Mean Corpuscular Volume 93, Mean Corpuscular Hemoglobin 31, Mean Corpuscular Hemoglobin Concent 34, Red Cell Distribution Width 13.5, Platelet Count 206, Mean Platelet Volume 10.2, Immature Granulocyte % (Auto) 0, Neutrophils (%) (Auto) 64, Lymphocytes (%) (Auto) 25, Monocytes (%) (Auto) 10, Eosinophils (%) (Auto) 2, Basophils (%) (Auto) 0, Neutrophils # (Auto) 5.5, Lymphocytes # (Auto) 2.1, Monocytes # (Auto) 0.8, Eosinophils # (Auto) 0.1, Basophils # (Auto) 0.0, Immature Granulocyte # (Auto) 0.0 03/23/23 05:15: White Blood Count 7.0, Red Blood Count 4.17, Hemoglobin 12.8, Hematocrit 38, Mean Corpuscular Volume 91, Mean Corpuscular Hemoglobin 31, Mean Corpuscular Hemoglobin Concent 34, Red Cell Distribution Width 13.8, Platelet Count 230, Mean Platelet Volume 9.4, Immature Granulocyte % (Auto) 0, Neutrophils (%) (Auto) 56, Lymphocytes (%) (Auto) 28, Monocytes (%) (Auto) 13H, Eosinophils (%) (Auto) 3, Basophils (%) (Auto) 1, Neutrophils # (Auto) 4.0, Lymphocytes # (Auto) 1.9, Monocytes # (Auto) 0.9, Eosinophils # (Auto) 0.2, Basophils # (Auto) 0.1, Immature Granulocyte # (Auto) 0.0, Sodium Level 140, Potassium Level 3.0L, Chloride Level 108H, Carbon Dioxide Level 24, Anion Gap 8, Blood Urea Nitrogen 8, Creatinine 0.68, Estimat Glomerular Filtration Rate 87, BUN/Creatinine Ratio 12, Glucose Level 111H, Calcium Level 8.4L, Corrected Calcium 9.1, Total Bilirubin 0.4, Aspartate Amino Transf (AST/SGOT) 24, Alanine Aminotransferase (ALT/SGPT) 19, Alkaline Phosphatase 53, Total Protein 6.5, Albumin 3.1L 03/23/23 14:25: Urine Color BROWNH, Urine Clarity SL CLOUDY, Urine pH 6.5, Urine Specific Stigler 1.020, Urine Protein 2+H, Urine Glucose (UA) NEGATIVE, Urine Ketones 1+H , Urine Nitrite NEGATIVE, Urine Bilirubin 1+H, Urine Urobilinogen 0.2, Urine Leukocyte Esterase 1+H, Urine RBC (Auto) NEGATIVE, Urine RBC RARE, Urine WBC 5- 10H, Urine Squamous Epithelial Cells 25-50H, Urine Crystals NONE, Urine Bacteria FEWH, Urine Casts PRESENT, Urine Hyaline Casts 5-10H, Urine Mucus SMALLH, Urine Culture Indicated NO 03/24/23 05:00: White Blood Count 5.7, Red Blood Count 3.96, Hemoglobin 12.2, Hematocrit 37, Mean Corpuscular Volume 92, Mean Corpuscular Hemoglobin 31, Mean Corpuscular Hemoglobin Concent 33, Red Cell Distribution Width 14.0, Platelet Count 238, Mean Platelet Volume 9.6, Immature Granulocyte % (Auto) 0, Neutrophils (%) (Auto) 44, Lymphocytes (%) (Auto) 39, Monocytes (%) (Auto) 13H, Eosinophils (%) (Auto) 3, Basophils (%) (Auto) 1, Neutrophils # (Auto) 2.5, Lymphocytes # (Auto) 2.2, Monocytes # (Auto) 0.7, Eosinophils # (Auto) 0.2, Basophils # (Auto) 0.1, Immature Granulocyte # (Auto) 0.0 03/24/23 05:08: Sodium Level 141, Potassium Level 3.5L, Chloride Level 111H, Carbon Dioxide Level 23, Anion Gap 7, Blood Urea Nitrogen 8, Creatinine 0.70, Estimat Glom erular Filtration Rate 86, BUN/Creatinine Ratio 11, Glucose Level 102, Calcium Level 8.2L, Corrected Calcium 9.1, Total Bilirubin 0.4, Aspartate Amino Transf (AST/SGOT) 66H, Alanine Aminotransferase (ALT/SGPT) 35, Alkaline Phosphatase 49, Total Protein 6.0L, Albumin 2.9L Pending Labs Laboratory Tests 03/19/23 09:10: White Blood Count 13.7, Red Blood Count 4.64, Hemoglobin 14.3, Hematocrit 43, Mean Corpuscular Volume 93, Mean Corpuscular Hemoglobin 31, Mean Corpuscular Hemoglobin Concent 33, Red Cell Distribution Width 13.8, Platelet Count 241, Mean Platelet Volume 9.3, Immature Granulocyte % (Auto) 0, Neutrophils (%) (Auto) 79, Lymphocytes (%) (Auto) 15, Monocytes (%) (Auto) 5, Eosinophils (%) (Auto) 0, Basophils (%) (Auto) 0, Neutrophils # (Auto) 10.9, Lymphocytes # (Auto) 2.1, Monocytes # (Auto) 0.6, Eosinophils # (Auto) 0.0, Basophils # (Auto) 0.0, Immature Granulocyte # (Auto) 0.0, Erythrocyte Sedimentation Rate 12, Prothrombin Time 14.6, INR Comment 1.1, Activated Partial Thromboplast Time 29, Sodium Level 138, Potassium Level 3.4, Chloride Level 103, Carbon Dioxide Level 22, Anion Gap 13, Blood Urea Nitrogen 12, Creatinine 0.86, Estimat Glomerular Filtration Rate 67, BUN/Creatinine Ratio 14, Glucose Level 169, Calcium Level 8.7, Corrected Calcium 8.9, Total Bilirubin 0.7, Aspartate Amino Transf (AST/SGOT) 19, Alanine Aminotransferase (ALT/SGPT) 20, Alkaline Phosphatase 58, C-Reactive Protein High Sensitivity 1.10, Total Protein 7.2, Albumin 3.8, Lipase 20 03/19/23 09:25: Lactic Acid Level 2.72 03/19/23 12:55: Lactic Acid Level 1.20 03/20/23 05:22: White Blood Count 10.0, Red Blood Count 4.02, Hemoglobin 12.5, Hematocrit 38, Mean Corpuscular Volume 96, Mean Corpuscular Hemoglobin 31, Mean Corpuscular Hemoglobin Concent 33, Red Cell Distribution Width 14.2, Platelet Count 201, Mean Platelet Volume 9.9, Immature Granulocyte % (Auto) 0, Neutrophils (%) (Auto) 63, Lymphocytes (%) (Auto) 28, Monocytes (%) (Auto) 8, Eosinophils (%) (Auto) 1, Basophils (%) (Auto) 0, Neutrophils # (Auto) 6.3, Lymphocytes # (Auto) 2.7, Monocytes # (Auto) 0.8, Eosinophils # (Auto) 0.1, Basophils # (Auto) 0.0, Immature Granulocyte # (Auto) 0.0, Sodium Level 140, Potassium Level 4.1, Chloride Level 108, Carbon Dioxide Level 22, Anion Gap 10, Blood Urea Nitrogen 12, Creatinine 0.75, Estimat Glomerular Filtration Rate 79, BUN/Creatinine Ratio 16, Glucose Level 94, Calcium Level 8.2, Corrected Calcium 8.8, Total Bilirubin 0.7, Aspartate Amino Transf (AST/SGOT) 17, Alanine Aminotransferase (ALT/SGPT) 15, Alkaline Phosphatase 51, Total Protein 6.3, Albumin 3.2 03/21/23 05:53: White Blood Count 9.3, Red Blood Count 3.82, Hemoglobin 12.0, Hematocrit 36, Mean Corpuscular Volume 93, Mean Corpuscular Hemoglobin 31, Mean Corpuscular Hemoglobin Concent 34, Red Cell Distribution Width 13.7, Platelet Count 207, Mean Platelet Volume 10.1, Immature Granulocyte % (Auto) 0, Neutrophils (%) (Auto) 66, Lymphocytes (%) (Auto) 23, Monocytes (%) (Auto) 9, Eosinophils (%) (Auto) 2, Basophils (%) (Auto) 1, Neutrophils # (Auto) 6.1, Lymphocytes # (Auto) 2.1, Monocytes # (Auto) 0.8, Eosinophils # (Auto) 0.2, Basophils # (Auto) 0.1, Immature Granulocyte # (Auto) 0.0, Sodium Level 139, Potassium Level 3.3, Chloride Level 106, Carbon Dioxide Level 24, Anion Gap 9, Blood Urea Nitrogen 7, Creatinine 0.63, Estimat Glomerular Filtration Rate 89, BUN/Creatinine Ratio 11, Glucose Level 84, Calcium Level 8.4, Corrected Calcium 9.1, Total Bilirubin 0.6, Aspartate Amino Transf (AST/SGOT) 24, Alanine Aminotransferase (ALT/SGPT) 21, Alkaline Phosphatase 53, Total Protein 6.0, Albumin 3.1 03/22/23 05:33: Sodium Level 138, Potassium Level 4.0, Chloride Level 106, Carbon Dioxide Level 18, Anion Gap 14, Blood Urea Nitrogen 10, Creatinine 0.66, Estimat Glomerular Filtration Rate 88, BUN/Creatinine Ratio 15, Glucose Level 61, Calcium Level 8.2, Corrected Calcium 8.9, Total Bilirubin 0.4, Aspartate Amino Transf (AST/SGOT) 21, Alanine Aminotransferase (ALT/SGPT) 18, Alkaline Phosphatase 57, Total Protein 6.2, Albumin 3.1 03/22/23 06:00: White Blood Count 8.6, Red Blood Count 3.93, Hemoglobin 12.3, Hematocrit 37, Mean Corpuscular Volume 93, Mean Corpuscular Hemoglobin 31, Mean Corpuscular Hemoglobin Concent 34, Red Cell Distribution Width 13.5, Platelet Count 206, Mean Platelet Volume 10.2, Immature Granulocyte % (Auto) 0, Neutrophils (%) (Au to) 64, Lymphocytes (%) (Auto) 25, Monocytes (%) (Auto) 10, Eosinophils (%) (Auto) 2, Basophils (%) (Auto) 0, Neutrophils # (Auto) 5.5, Lymphocytes # (Auto) 2.1, Monocytes # (Auto) 0.8, Eosinophils # (Auto) 0.1, Basophils # (Auto) 0.0, Immature Granulocyte # (Auto) 0.0 03/23/23 05:15: White Blood Count 7.0, Red Blood Count 4.17, Hemoglobin 12.8, Hematocrit 38, Mean Corpuscular Volume 91, Mean Corpuscular Hemoglobin 31, Mean Corpuscular Hemoglobin Concent 34, Red Cell Distribution Width 13.8, Platelet Count 230, Mean Platelet Volume 9.4, Immature Granulocyte % (Auto) 0, Neutrophils (%) (Auto) 56, Lymphocytes (%) (Auto) 28, Monocytes (%) (Auto) 13, Eosinophils (%) (Auto) 3, Basophils (%) (Auto) 1, Neutrophils # (Auto) 4.0, Lymphocytes # (Auto) 1.9, Monocytes # (Auto) 0.9, Eosinophils # (Auto) 0.2, Basophils # (Auto) 0.1, Immature Granulocyte # (Auto) 0.0, Sodium Level 140, Potassium Level 3.0, Chloride Level 108, Carbon Dioxide Level 24, Anion Gap 8, Blood Urea Nitrogen 8, Creatinine 0.68, Estimat Glomerular Filtration Rate 87, BUN/Creatinine Ratio 12, Glucose Level 111, Calcium Level 8.4, Corrected Calcium 9.1, Total Bilirubin 0.4, Aspartate Amino Transf (AST/SGOT) 24, Alanine Aminotransferase (ALT/SGPT) 19, Alkaline Phosphatase 53, Total Protein 6.5, Albumin 3.1 03/23/23 14:25: Urine Color BROWN, Urine Clarity SL CLOUDY, Urine pH 6.5, Urine Specific Stigler 1.020, Urine Protein 2+, Urine Glucose (UA) NEGATIVE, Urine Ketones 1+, Urine Nitrite NEGATIVE, Urine Bilirubin 1+, Urine Urobilinogen 0.2, Urine Leukocyte Esterase 1+, Urine RBC (Auto) NEGATIVE, Urine RBC RARE, Urine WBC 5-10, Urine Squamous Epithelial Cells 25-50, Urine Crystals NONE, Urine Bacteria FEW, Urine Casts PRESENT, Urine Hyaline Casts 5-10, Urine Mucus SMALL, Urine Culture Indicated NO 03/24/23 05:00: White Blood Count 5.7, Red Blood Count 3.96, Hemoglobin 12.2, Hematocrit 37, Mean Corpuscular Volume 92, Mean Corpuscular Hemoglobin 31, Mean Corpuscular Hemoglobin Concent 33, Red Cell Distribution Width 14.0, Platelet Count 238, Mean Platelet Volume 9.6, Immature Granulocyte % (Auto) 0, Neutrophils (%) (Auto) 44, Lymphocytes (%) (Auto) 39, Monocytes (%) (Auto) 13, Eosinophils (%) (Auto) 3, Basophils (%) (Auto) 1, Neutrophils # (Auto) 2.5, Lymphocytes # (Auto) 2.2, Monocytes # (Auto) 0.7, Eosinophils # (Auto) 0.2, Basophils # (Auto) 0.1, Immature Granulocyte # (Auto) 0.0 03/24/23 05:08: Sodium Level 141, Potassium Level 3.5, Chloride Level 111, Carbon Dioxide Level 23, Anion Gap 7, Blood Urea Nitrogen 8, Creatinine 0.70, Estimat Glomerular Filtration Rate 86, BUN/Creatinine Ratio 11, Glucose Level 102, Calcium Level 8.2, Corrected Calcium 9.1, Total Bilirubin 0.4, Aspartate Amino Transf (AST/SGOT) 66, Alanine Aminotransferase (ALT/SGPT) 35, Alkaline Phosphatase 49, Total Protein 6.0, Albumin 2.9 Discharge Home Medications: Active Scripts Active Metronidazole 500 Mg Tablet 500 Mg PO TID Cefdinir 300 Mg Capsule 300 Mg PO BID Reported Probiotic (Bacillus Coagulans) 1 Billion Cell Tab.chew 0.5 Each PO DAILY TAKES 1/2 OF 1 PILL Pepcid (Famotidine) 40 Mg Tablet 40 Mg PO HS Tylenol Extra Strength (Acetaminophen) 500 Mg Tablet 500 Mg PO Q8H PRN Krill Oil 500 mg Softgel (Krill/Om-3/Dha/Epa/Phospho/Ast) 500-150-45 Capsule 1 Each PO DAILY Tums (Calcium Carbonate) 200 Mg Calcium (500 Mg) Tab.chew 200 Mg PO HS Vitamin D2 (Ergocalciferol (Vitamin D2)) 1,250 Mcg (31815 Unit) Capsule 1,250 Mc g PO MONTHLY Pantoprazole Sodium 40 Mg Tablet.dr 40 Mg PO BID Levothyroxine (Levothyroxine Sodium) 50 Mcg Capsule 50 Mcg PO DAILY Multivitamin 1 Each Tablet 1 Each PO DAILY Losartan Potassium 25 Mg Tablet 25 Mg PO DAILY Cardizem Cd (Diltiazem HCl) 300 Mg Cap.er.24h 300 Mg PO DAILY Eliquis (Apixaban) 5 Mg Tablet 5 Mg PO BID Instructions to patient/family Please see electronic discharge instructions given to patient. Clinical Quality Measures DVT/VTE Risk/Contraindication: Contraindications-Pharm: Other *list below* Other: poss surgery MARYAM JUARES DO Mar 24, 2023 11:35
== END 2023-03-24 13:20 | disposition home or self-care (01) | DRG 872 ==
LOC: EDUNIT# 08:54 → ER 08:55 → 4TH 11:29
PROVIDERS: ADMIT Internal Medicine; ATTEND Internal Medicine
DX: A41.9 Sepsis, unspecified organism (principal); K57.20 Diverticulitis of large intestine with perforation and abscess without bleeding; E87.6 Hypokalemia; E16.2 Hypoglycemia, unspecified; K21.9 Gastro-esophageal reflux disease without esophagitis; I48.91 Unspecified atrial fibrillation; J44.9 Chronic obstructive pulmonary disease, unspecified; I10 Essential (primary) hypertension; E03.9 Hypothyroidism, unspecified; H54.3 Unqualified visual loss, both eyes; Z79.01 Long term (current) use of anticoagulants; Z87.891 Personal history of nicotine dependence; Z79.899 Other long term (current) drug therapy; Z88.1 Allergy status to other antibiotic agents; Z88.0 Allergy status to penicillin
CPT/HCPCS: 36415; 74177; 80053; 81000; 83605; 83690; 85025; 85610; 85652; 85730; 86141; 93041; 94640; 94760; 96361; 96365; 96367; 96375

== ENCOUNTER → 2023-03-30 | Outpatient (RCR) | payer MEDICARE ==
[~2023-03-30] MED LIST changes: +ACET-2267 PO; +BACI1TAB24 PO; +CEFD300C3 PO; +FAMO40TA72 PO
== END | disposition home or self-care (01) ==
PROVIDERS: ATTEND Nurse Practitioner Family
DX: M54.2 Cervicalgia (principal); I10 Essential (primary) hypertension; E03.9 Hypothyroidism, unspecified

== ENCOUNTER 2023-04-27 14:18 | Outpatient (RCR) | payer MEDICARE | END 2023-04-29 | disposition home or self-care (01) | PROVIDERS: ATTEND Nurse Practitioner Family | DX: M54.2 Cervicalgia (principal); M40.294 Other kyphosis, thoracic region; I10 Essential (primary) hypertension; E03.9 Hypothyroidism, unspecified ==